=== PATIENT | female | born 1965 | race Caucasian/White ===

== ENCOUNTER 2020-04-03 14:07 | Outpatient (REF) | payer OTHER, SELFPAY | END 2020-04-03 14:08 | disposition home or self-care (01) | LOC: HO.MDS 14:07 | PROVIDERS: PCP Family Medicine; Visit Provider Internal Medicine Pulmonary Disease | DX: J45.50 Severe persistent asthma, uncomplicated (principal) | CPT/HCPCS: J2357 ==

== ENCOUNTER 2020-04-03 17:57 | Outpatient (REF) | payer OTHER, SELFPAY ==
--- NOTE | 2020-04-03 | MR_ITS ---
EXAMINATION: MR KNEE WITHOUT CONTRAST, LEFT CLINICAL INFORMATION: Primary osteoarthritis. Left knee swelling and pain. COMPARISON: Left knee radiograph dated 12/28/2019. TECHNIQUE: MRI of the knee without contrast was performed using routine sequences on a high-field scanner. FINDINGS: MENISCI: Medial Meniscus: A radial tear of the posterior horn occurs 1.4 cm from the footprint at the root insertion and extends through the full meniscal cross-section. The torn margins of the meniscus are frayed. Surrounding soft tissues are edematous. There is degenerative intrasubstance signal in the meniscal body. Lateral Meniscus: Intact. LIGAMENTS: Cruciate: Intact. Collateral: Edema signal around the MCL is likely reactive to the underlying meniscal abnormality. Collateral ligaments are intact. EXTENSOR MECHANISM: Intact. ARTICULAR CARTILAGE/BONE: Patellofemoral Compartment: There is vgqebztc-kq-dnrgme diffuse articular cartilage loss at the patella, most pronounced centrally at the median ridge with articular cortical irregularity and marginal osteophytes as well as mild subchondral edema. There is gzbn-dr-nxhkoycd articular cartilage loss in the trochlea, most pronounced at the central trochlear groove over an area measuring 1.2 x 1.0 cm. There is associated subcortical cystic change and cortical irregularity in this region. Medial Compartment: There is a subchondral insufficiency fracture at the medial femoral condyle weightbearing surface anteriorly measuring 1.1 x 0.7 cm in area, characterized by low-signal intensity in the subchondral bone with intense surrounding marrow edema. No cortical flattening or breaks. Intense reactive edema signal is also present at the medial tibial plateau with a smaller 4 x 5 mm subchondral insufficiency fracture line as seen on image 10/26 of series 5. There are tfgin-en-cdwzjoiq-sized marginal osteophytes. Mild generalized nonuniform chondral thinning in the medial compartment is most pronounced at the medial half of the medial tibial plateau. Lateral Compartment: Small marginal osteophytes. Articular cartilage appears relatively well preserved. JOINT FLUID AND BURSAE: Small joint effusion. No Telles's cyst. Edema signal is present in the prepatellar and superficial infrapatellar soft tissues. IMPRESSION: 1. Complete radial tear of the posterior horn of the medial meniscus. 2. Small subchondral insufficiency fractures at the medial femoral condyle and medial tibial plateau without cortical flattening, fragmentation, or depression. Mild medial compartment osteoarthritis. 3. 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 4. Small joint effusion.
== END 2020-04-03 17:58 | disposition home or self-care (01) ==
LOC: HO.MRI 17:57
PROVIDERS: Visit Provider Podiatrist
DX: M17.12 Unilateral primary osteoarthritis, left knee (principal); M25.462 Effusion, left knee
CPT/HCPCS: 73721

== ENCOUNTER 2020-04-17 10:15 | Outpatient (REF) | payer OTHER, SELFPAY | END 2020-04-17 10:16 | disposition home or self-care (01) | LOC: HO.MDS 10:15 | PROVIDERS: Visit Provider Internal Medicine Pulmonary Disease | DX: J45.50 Severe persistent asthma, uncomplicated (principal) | CPT/HCPCS: 96372 ==

== ENCOUNTER 2020-05-01 12:24 | Outpatient (REF) | payer OTHER, SELFPAY ==
--- NOTE | 2020-05-01 | MM_ITS ---
EXAMINATION: MM SCREENING DIGITAL BREAST TOMOSYNTHESIS, BILATERAL CLINICAL INFORMATION: Screening. Asymptomatic. Probable benign nodular asymmetry posterior outer left breast for follow-up. Family history breast cancer in mother. The lifetime risk of breast cancer based on the Tyrer-Cuzick Model is 19%. COMPARISON: Mammography: 04/05/2019, 10/14/2018, 04/08/2018, 04/01/2018, 02/05/2017, 08/28/2015 TECHNIQUE: Digital breast tomosynthesis is performed in both the craniocaudal and mediolateral oblique views along with computer-aided detection (CAD). Synthesized 2D images are generated from the tomosynthesis. FINDINGS: There are scattered areas of fibroglandular density (ACR BI-RADS breast composition Category b). There are no significant masses, abnormal calcifications, or other abnormalities. There is no developing density. Small smooth nodular asymmetry for follow-up posterior outer left breast on CC view may show fatty center suggesting intramammary node. This appears stable from prior exams. This is now considered benign. The axilla and skin contours are unremarkable. MM/MM tomosynthesis screening BI IMPRESSION: 1. Left: No significant changes from prior studies. Benign-appearing nodular asymmetry posterior outer quadrant, possibly intramammary node, stable. 2. Right: No mammographic evidence of malignancy. ASSESSMENT: BI-RADS 2: Benign RECOMMENDATION: Routine annual mammography screening. This patient's information was entered into a reminder system with a target due date for their next mammogram.
== END 2020-05-01 12:25 | disposition home or self-care (01) ==
LOC: HO.MAMMO 12:24
PROVIDERS: PCP Family Medicine; Visit Provider Family Medicine
DX: Z12.31 Encounter for screening mammogram for malignant neoplasm of breast (principal)
CPT/HCPCS: 77063; 77067

== ENCOUNTER 2020-05-03 | Outpatient (REF) | payer OTHER, SELFPAY | END 2020-05-03 00:01 | disposition home or self-care (01) | LOC: HO.MDS | PROVIDERS: Visit Provider Internal Medicine Pulmonary Disease | DX: J45.50 Severe persistent asthma, uncomplicated (principal) | CPT/HCPCS: 96372 ==

== ENCOUNTER → 2020-05-16 11:28 | Outpatient (BNVA) | payer OTHER, SELFPAY | PROVIDERS: PCP Family Medicine; Visit Provider Internal Medicine Pulmonary Disease | DX: Z76.89 Persons encountering health services in other specified circumstances (principal) ==

== ENCOUNTER 2020-05-17 09:13 | Outpatient (REF) | payer OTHER, SELFPAY | END 2020-05-17 09:14 | disposition home or self-care (01) | LOC: HO.MDS 09:13 | PROVIDERS: Visit Provider Internal Medicine Pulmonary Disease | DX: J45.50 Severe persistent asthma, uncomplicated (principal) | CPT/HCPCS: 96372; J2357 ==

== ENCOUNTER 2020-06-05 07:48 | Outpatient (REF) | payer OTHER, SELFPAY ==
[2020-06-05 08:11] LABS: COVID-19 Test Negative (Negative)
== END 2020-06-05 07:49 | disposition home or self-care (01) ==
LOC: HO.EMPCOV 07:48
PROVIDERS: Visit Provider Internal Medicine
DX: Z20.828 Contact with and (suspected) exposure to other viral communicable diseases (principal)
CPT/HCPCS: 87635; C9803

== ENCOUNTER 2020-06-06 10:41 | Outpatient (REF) | payer OTHER, SELFPAY | END 2020-06-06 10:42 | disposition home or self-care (01) | LOC: HO.MDS 10:41 | PROVIDERS: Visit Provider Internal Medicine Pulmonary Disease | DX: J45.909 Unspecified asthma, uncomplicated (principal) | CPT/HCPCS: 96372; J2357 ==

== ENCOUNTER → 2020-06-13 08:03 | Outpatient (REF) | payer OTHER, SELFPAY ==
--- NOTE | 2020-06-13 08:06 | CA_ITS ---
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 The visually estimated ejection fraction is between 60-65%. - No obvious valvular pathology seen on this study. - The pulmonary artery systolic pressure is normal. - There is no evidence of pericardial effusion. Findings Procedure Information Contrast agent, definity, is being given per protocol without apparent complications. Left Ventricle Normal left ventricular cavity size. There is normal left ventricular wall thickness. The left ventricular systolic function is normal. The visually estimated ejection fraction is between 60-65%. There is no evidence of regional wall motion abnormalities. E/E prime ratio is between 8 and 15 consistent with indeterminate filling pressures. Evidence suggests grade I (mild) diastolic dysfunction. Right Ventricle Normal right ventricular cavity size and systolic function. Atria The left atrium is normal in size. The right atrium is normal in size. Aortic Valve There is a normal trileaflet aortic valve. There is no aortic valve stenosis. There is no aortic valve regurgitation. Mitral Valve The mitral valve appears normal. There is no mitral valve regurgitation. There is no mitral valve stenosis. Pulmonic Valve The pulmonic valve was not well visualized. Tricuspid Valve The tricuspid valve was not well visualized. There is no tricuspid valve regurgitation. The pulmonary artery systolic pressure is normal. Great Vessels The aortic annulus, sinuses of valsalva, and asc aorta are normal in size. Venous The inferior vena cava is normal in size and collapses greater than 50% with inspiration. Pericardium/Pleural There is no evidence of pericardial effusion. Prior Study Comparison No significant change compared to prior study dated: 11/05/2007. Recommendations, Care & Conclusions No obvious valvular pathology seen on this study. Measurements 2D Linear Measurements RVIDd: 3.06 RVIDd Index: 1.49 IVSd: 0.90 0.6-0.9/0.6-1.0 cm LVIDd: 4.73 3.9-5.3/4.2-5.9 cm LVIDd Index: 2.30 2.4-3.2/2.2-3.1 cm/m2 LVIDs: 3.49 2.0-3.6 cm LVPWd: 1.06 0.7-1.1 cm LA Diam: 3.80 2.7-3.8/3.0-4.0 cm LAIDs Index: 1.84 1.5-2.3 cm/m2 LV Mass: 200.92 67-162/88-224 g LV Mass Index: 97.53 43-95/49-115 g/m2 LVOT Diam: 2.00 3.0+(-)1.3 cm 2D Systolic Function EF 4C: 64.80 >55% EF 2C: 71.80 >55% EF BiP: 69.00 >55% Mitral Valve MV Pk E: 0.69 MV PK A: 0.85 MV Decel Time: 260.00 E/A: 0.80 E'Lateral: 5.87 E'Medial: 7.51 E/E' Med: 9.10 E/E' Lat: 11.70 Aortic Valve AoV Pk Darryl: 1.48 AoV Mn Darryl: 1.03 AoV VTI: 0.30 AoV Pk Grad: 9.00 Aov Mn Grad: 5.00 YOSELIN Cont.VTI: 2.18 LVOT LVOT Pk Darryl: 0.99 LVOT Mn Darryl: 0.68 LVOT VTI: 0.21 LVOT Pk Grad: 4.00 LVOT Mn Grad: 2.00 LVOT Diam: 2.00 LVOT Area: 3.14 Diastolic Function MV Pk E: 0.69 MV Pk A: 0.85 E/A: 0.80 E'Medial: 7.51 E/E' Med: 9.10 E' Laterial: 5.87 E/E' Lat: 11.70 Tricuspid Valve TR Pk Darryl: 2.28 TR Pk Grad: 21.00 RA Press: 3.00 RVSP: 24.00 Great Vessels Aorta Ao Asc: 3.20 2.1-3.4 cm Ao Arch: 2.70 Updated in Other Vendor System with Status of Final Zackary Ruiz MD electronically signed on 06/13/2020 5:48:13 PM with status of Final
== END ==
LOC: HO.CARD 08:03
PROVIDERS: PCP Family Medicine; Visit Provider Internal Medicine Pulmonary Disease
DX: R06.02 Shortness of breath (principal)
CPT/HCPCS: 93306; Q9957

== ENCOUNTER → 2020-06-14 14:14 | Outpatient (BNVA) | payer OTHER, SELFPAY | PROVIDERS: Visit Provider Physician Assistant | DX: Z76.89 Persons encountering health services in other specified circumstances (principal) ==

== ENCOUNTER 2020-06-20 | Outpatient (REF) | payer OTHER, SELFPAY | END 2020-06-20 00:01 | disposition home or self-care (01) | LOC: HO.MDS | PROVIDERS: Visit Provider Internal Medicine Pulmonary Disease | DX: J45.50 Severe persistent asthma, uncomplicated (principal) | CPT/HCPCS: 96372 ==

== ENCOUNTER 2020-06-22 06:07 | Day surgery (SDC) | payer OTHER, SELFPAY ==
[2020-06-15 10:19] VITALS: BMI 36.8
--- NOTE | 2020-06-19 11:56 | HO.ANESPROP2 ---
Documented by User: Michelle Chengney 06/21/20 08:30 HPI - Anesthesia Eval Consult details Narrative: 55yo F for Knee Arthroscopy PONV PMFSH Past Medical History Medical History Asthma Elevated cholesterol GERD (gastroesophageal reflux disease) PONV (postoperative nausea and vomiting) Shortness of breath Thyroid disease Surgical History Surgical History H/O colonoscopy History of ankle surgery History of surgical removal of ganglion cyst Hx of total hip arthroplasty Social History Social History Alcohol intake: current Alcohol intake frequency: a few times a month Smoking Status: Never smoker Second Hand Smoke Exposure: No Use of substances other than those prescribed or required for medical reasons: No Advance Directives: No Advance Directives Information Provided: No Advance Directives on File: No Meds Allergies Allergy/AdvReac Type Severity Reaction Status Date / Time cephalexin [From KEFLEX] Allergy Intermediate RASH Verified 06/22/20 06:15 chlorhexidine [CHLORHEXIDINE] Allergy Intermediate ITCHY,RASH Verified 06/22/20 06:15 ibuprofen [IBUPROFEN] Allergy Intermediate RASH- PER Verified 06/22/20 06:15 H&P latex [LATEX] Allergy Intermediate RASH Verified 06/22/20 06:15 Home Medications Medication Instructions Recorded Confirmed Type atorvastatin 20 mg tablet 20 mg PO DAILY 05/04/20 06/15/20 History montelukast 10 mg tablet 10 mg PO DAILY 05/04/20 06/15/20 History omalizumab 150 mg subcutaneous 0 mg SUBCUT 05/04/20 History solution triamcinolone acetonide 0.1 % TOPICAL 05/04/20 History topical ointment omeprazole 20 mg capsule,delayed 20 mg PO DAILY 05/30/20 06/15/20 History release fluticasone propionate 50 1 spray INTRANASAL DAILY 06/14/20 06/15/20 History mcg/actuation nasal spray,suspension B.ani-L.aci-L.grady-L.plan-L.brijesh 1 cap PO DAILY 06/15/20 06/15/20 History albuterol sulfate 2 puff PO Q4H PRN 06/15/20 06/15/20 History apple cider vinegar 300 mg PO DAILY 06/15/20 06/15/20 History diphenhydramine HCl [Benadryl 12.5 mg PO BEDTIME 06/15/20 06/15/20 History Allergy] gabapentin 1 cap PO BEDTIME 06/15/20 06/15/20 History Exam Exam Date and Time: June 19, 2020 1156 Height,Weight and Vital Signs: Height 5 ft 5 in Weight 100.244 kg Pertinent Lab Results Pertinent Lab Results: Laboratory Tests 01/19/20 02/21/20 08:57 08:40 WBC 6.2 Hgb 12.3 Hct 37.9 Plt Count 258 Sodium 141 Potassium 4.2 Chloride 105 BUN 11 Creatinine 0.71 Assessment and Plan Assessment Anesthesia Assessment: Chart Reviewed Documented by User: Travis Glover MD 06/22/20 08:27 PMFSH Past Medical History Medical History Asthma Elevated cholesterol GERD (gastroesophageal reflux disease) PONV (postoperative nausea and vomiting) Shortness of breath Thyroid disease Surgical History Surgical History H/O colonoscopy History of ankle surgery History of surgical removal of ganglion cyst Hx of total hip arthroplasty Social History Social History Alcohol intake: current Alcohol intake frequency: a few times a month Smoking Status: Never smoker Second Hand Smoke Exposure: No Use of substances other than those prescribed or required for medical reasons: No Advance Directives: No Advance Directives Information Provided: No Advance Directives on File: No Meds Allergies Allergy/AdvReac Type Severity Reaction Status Date / Time cephalexin [From KEFLEX] Allergy Intermediate RASH Verified 06/22/20 06:15 chlorhexidine [CHLORHEXIDINE] Allergy Intermediate ITCHY,RASH Verified 06/22/20 06:15 ibuprofen [IBUPROFEN] Allergy Intermediate RASH- PER Verified 06/22/20 06:15 H&P latex [LATEX] Allergy Intermediate RASH Verified 06/22/20 06:15 Home Medications Medication Instructions Recorded Confirmed Type atorvastatin 20 mg tablet 20 mg PO DAILY 05/04/20 06/15/20 History montelukast 10 mg tablet 10 mg PO DAILY 05/04/20 06/15/20 History omalizumab 150 mg subcutaneous 0 mg SUBCUT 05/04/20 History solution triamcinolone acetonide 0.1 % TOPICAL 05/04/20 History topical ointment omeprazole 20 mg capsule,delayed 20 mg PO DAILY 05/30/20 06/15/20 History release fluticasone propionate 50 1 spray INTRANASAL DAILY 06/14/20 06/15/20 History mcg/actuation nasal spray,suspension B.ani-L.aci-L.grady-L.plan-L.brijesh 1 cap PO DAILY 06/15/20 06/15/20 History albuterol sulfate 2 puff PO Q4H PRN 06/15/20 06/15/20 History apple cider vinegar 300 mg PO DAILY 06/15/20 06/15/20 History diphenhydramine HCl [Benadryl 12.5 mg PO BEDTIME 06/15/20 06/15/20 History Allergy] gabapentin 1 cap PO BEDTIME 06/15/20 06/15/20 History Exam Airway Mallampati Class: I TM Dist: >3cm Neck ROM: Full Loose/Missing/Broken Teeth: No Heart: rrr Lungs: nl Other: ao Assessment and Plan Assessment Anesthesia Assessment: Anesthesia Plan Discussed and Chart Reviewed Final Anesthetic Review NPO: Yes ASA Class: III Final Preanesthetic Review: No Changes in Pt Med Stat, Consent Obtained/Reviewed and Anes Risks/Benef Reviewed Patient Risk: Intermediate Procedure Risk: Low Anesthetic Plan Anesthetic Plan: GA Disposition: Standard PACU
[2020-06-21 07:45] VITALS: BMI 36.8
[2020-06-22 06:17] VITALS: BP 158/92; PULSE 89; RESP 18; TEMP 36.3; O2SAT 98
[2020-06-22] MEDS: Scopolamine 1.5 MG PATCH.TD.3 TRANSDERMA (06:40)
[2020-06-22] MEDS: Lactated Ringers 1,000 ML 100 ML IVCONT (06:40)
--- NOTE | 2020-06-22 07:45 | MHC.SHP ---
Pre-Procedural Eval Section A The patient is an INPATIENT: No Changes since office visit: No Cold of Flu in the past 2 weeks, No New Medical Problems, No Changes in Medication and No Patient answered all questions The History & Physical has been completed within 30 days and I have reviewed it.: Yes Section B Chief Complaint: Medial Meniscus Tear, Left Knee Osteoarthritis Allergies: Allergies Allergy/AdvReac Type Severity Reaction Status Date / Time cephalexin [From KEFLEX] Allergy Intermediate RASH Verified 06/22/20 06:15 chlorhexidine [CHLORHEXIDINE] Allergy Intermediate ITCHY,RASH Verified 06/22/20 06:15 ibuprofen [IBUPROFEN] Allergy Intermediate RASH- PER Verified 06/22/20 06:15 H&P latex [LATEX] Allergy Intermediate RASH Verified 06/22/20 06:15 Plan I have reviewed the history and physical and performed a pertinent physical examination on my patient. No changes have occurred unless specified.
[2020-06-22 08:20] VITALS: BP 109/65; PULSE 87; RESP 18; TEMP 36.6; O2SAT 100
[2020-06-22 08:25] VITALS: BP 110/69; PULSE 81; RESP 16; O2SAT 91
[2020-06-22 08:30] VITALS: BP 116/72; PULSE 73; RESP 15; O2SAT 95
[2020-06-22 08:35] VITALS: BP 131/68; PULSE 70; RESP 16; O2SAT 95
[2020-06-22 08:50] VITALS: BP 139/70; PULSE 69; RESP 18; O2SAT 95
--- NOTE | 2020-06-22 09:25 | PM.PRCOR ---
Brief Operative Note Date of procedure: 06/22/20 Pre-op diagnosis: mmt left knee Post-op diagnosis: same (with lateral meniscal tear and anterior compartment oa) Procedure: Arthroscopic sugery left knee Anesthesia: GLMA Surgeon: Aly Slaughter Estimated blood loss (mL): 0 Condition: stable Disposition: PACU
--- NOTE | 2020-06-22 09:55 | HO.POSTANES ---
Post Anesthesia Evaluation Post Anesthesia Evaluation Vital Signs: Vital Signs Temp Pulse Resp BP Pulse Ox 06/22/20 08:50 69 18 139/70 95 06/22/20 08:35 70 16 131/68 95 06/22/20 08:30 73 15 116/72 95 06/22/20 08:25 81 16 110/69 91 L 06/22/20 08:20 97.9 F 87 18 109/65 100 06/22/20 06:17 97.4 F 89 18 158/92 H 98 Anesthesia: General Mental Status: Awake Pain Control: Satisfactory Nausea/Vomiting: None Hydration: Adequate Anesthesia-Related Issues: No Anes. Related Issues
--- NOTE | 2020-07-20 12:04 | OP_ITS ---
SURGEON: Aly Slaughter MD PREOPERATIVE DIAGNOSIS: Medial meniscal tear, left knee. POSTOPERATIVE DIAGNOSIS: PROCEDURE PERFORMED: ESTIMATED BLOOD LOSS: COMPLICATIONS: ANESTHESIA: ASSISTANTS: SPECIMENS: POSTOPERATIVE DIAGNOSES: 1. Medial meniscal tear, left knee. 2. Lateral meniscal tear, left knee. 3. Anterior compartment osteoarthritis, left knee. CLINICAL NOTE: This lady has ongoing problem with pain and discomfort involving her knee. Therefore, after explaining the risks, benefits, and alternatives and answering all the questions, it was mutually agreed upon to carry out the following procedure. MOTION: Full range of motion. STABILITY: Cruciate and collateral ligaments intact. DESCRIPTION OF PROCEDURE: PREPARATION: GA, standard technique, tourniquet to 300 mmHg for 15 minutes. SURGICAL TIME-OUT: The patient was identified, procedure confirmed, site confirmed. Medical analogy and history reviewed. Preoperative antibiotics given. Standard DVT prophylaxis in place. All other items were discussed and agreed upon. INCISION: Superolateral, inferolateral, and inferomedial stab incisions. SYNOVIUM: Normal. SYNOVIAL FLUID: Clear. MEDIAL COMPARTMENT: There was complex tearing of posterior horn of the medial meniscus. This was resected using a combination of handheld cutters and power shaver to stable meniscus. There was some grade 2 fraying of the medial femoral condyle and grade 2 softening of the tibial articular surface. INTERCONDYLAR NOTCH: ACL visualized, palpated intact. PCL palpated intact. LATERAL COMPARTMENT: There was inner edge complex tearing at the junction of the middle and posterior horns of the lateral meniscus. This was resected using a combination of handheld cutters and power shaver to stable meniscus. The tibial and femoral articular surfaces were intact. Popliteus tendon was intact. ANTERIOR COMPARTMENT: Medial and lateral gutters were clear. Suprapatellar pouch was clear. Patella demonstrated some grade 4 injury of the lateral facet. There was also grade 4 injury in the femoral sulcus. This was debrided of loose articular cartilage. CLOSURE: 30 mL of half and half of 0.75% Marcaine with epinephrine and normal saline was injected into the knee. Steri-Strips and sterile dressing were then applied. RECOMMENDATIONS: 1. Restore motion and strength. 2. Resume activity as tolerated. 3. Discharge today with prescription for analgesics. 4. Follow up in the office in 10 days' time. Aly Slaughter MD KKI/SYDNEE / [phone]
== END 2020-06-22 09:25 | disposition home or self-care (01) ==
PROVIDERS: PCP Family Medicine; Visit Provider Orthopaedic Surgery
PROC: (CPT 29870; principal; 2020-06-22 07:30)
DX: S83.232A Complex tear of medial meniscus, current injury, left knee, initial encounter (principal); S83.272A Complex tear of lateral meniscus, current injury, left knee, initial encounter; M17.12 Unilateral primary osteoarthritis, left knee; J45.909 Unspecified asthma, uncomplicated; E78.5 Hyperlipidemia, unspecified; K21.9 Gastro-esophageal reflux disease without esophagitis; Z96.641 Presence of right artificial hip joint; Z79.51 Long term (current) use of inhaled steroids; Z79.899 Other long term (current) drug therapy; Z91.040 Latex allergy status; Z91.09 Other allergy status, other than to drugs and biological substances; Z88.1 Allergy status to other antibiotic agents
CPT/HCPCS: 29880; J0171; J1100; J1885; J2250; J2405; J3010

== ENCOUNTER 2020-07-04 10:02 | Outpatient (REF) | payer BC, SELFPAY | END 2020-07-04 10:03 | disposition home or self-care (01) | LOC: HO.MDS 10:02 | PROVIDERS: PCP Family Medicine; Visit Provider Internal Medicine Pulmonary Disease | DX: J45.50 Severe persistent asthma, uncomplicated (principal); S83.242A Other tear of medial meniscus, current injury, left knee, initial encounter; X58.XXXA Exposure to other specified factors, initial encounter; Y93.9 Activity, unspecified; Y92.9 Unspecified place or not applicable; Y99.8 Other external cause status; M17.12 Unilateral primary osteoarthritis, left knee | CPT/HCPCS: 96372; J2357 ==

== ENCOUNTER 2020-07-18 09:34 | Outpatient (REF) | payer BC, SELFPAY | END 2020-07-18 09:35 | disposition home or self-care (01) | LOC: HO.MDS 09:34 | PROVIDERS: PCP Family Medicine; Visit Provider Internal Medicine Pulmonary Disease | DX: J45.50 Severe persistent asthma, uncomplicated (principal) | CPT/HCPCS: 96372; J2357 ==

== ENCOUNTER 2020-08-01 10:59 | Outpatient (REF) | payer BC, SELFPAY | END 2020-08-01 11:00 | disposition home or self-care (01) | LOC: HO.MDS 10:59 | PROVIDERS: PCP Family Medicine; Visit Provider Internal Medicine Pulmonary Disease | DX: J45.50 Severe persistent asthma, uncomplicated (principal) | CPT/HCPCS: 96372; J2357 ==

== ENCOUNTER 2020-08-24 08:03 | Outpatient (REF) | payer BC, SELFPAY ==
[2020-08-24 09:21] LABS: Alanine Aminotransferase 41 U/L (0-31); Albumin Level 4.3 g/dL (3.5-5.0); Alkaline Phosphatase 74 U/L (39-117); Anion Gap 14 (12-20); Aspartate Amino Transferase 24 U/L (5-31); Bilirubin Total 0.5 mg/dL (0.0-1.0); Blood Urea Nitrogen 13 mg/dL (9-16); Calcium 9.3 mg/dL (8.4-10.2); Carbon Dioxide 26 mmol/L (22-29); Chloride 105 mmol/L (96-108); Cholesterol 178 mg/dL; Estimated Glomerular Filt Rate > 60; Glucose Fasting 103 mg/dL (60-99); HDL Cholesterol 59 mg/dL; LDL Cholesterol Calculated 93 mg/dl; Sodium 141 mmol/L (135-145); Triglycerides 130 mg/dL
[2020-08-24 09:34] LABS: TSH reflex Free T4 3.23 uIU/mL (0.32-4.0)
== END 2020-08-24 08:04 | disposition home or self-care (01) ==
LOC: HO.LAB 08:03
PROVIDERS: PCP Family Medicine; Visit Provider Family Medicine
DX: Z00.00 Encounter for general adult medical examination without abnormal findings (principal); I10 Essential (primary) hypertension
CPT/HCPCS: 36415; 80053; 80061; 84443

== ENCOUNTER 2020-09-28 08:01 | Outpatient (REF) | payer OTHER, SELFPAY ==
[2020-09-28 08:42] LABS: COVID-19 Test Negative (Negative); IDNOW Serial# 55D5AD1C
== END 2020-09-28 08:02 | disposition home or self-care (01) ==
LOC: HO.EMPCOV 08:01
PROVIDERS: Visit Provider Internal Medicine
DX: Z20.822 Contact with and (suspected) exposure to COVID-19 (principal)
CPT/HCPCS: 36415; 87635; C9803

== ENCOUNTER 2020-11-16 10:41 | Outpatient (REF) | payer BC, SELFPAY ==
--- NOTE | ~2020-11-16 | XR_ITS ---
EXAMINATION: XR CHEST CLINICAL INFORMATION: Shortness of breath COMPARISON: None TECHNIQUE: 2 views of the chest were obtained. FINDINGS: No significant abnormality is noted involving the heart, lungs, mediastinum, bony thorax or soft tissues. XR/XR chest 2V IMPRESSION: Unremarkable chest examination.
== END 2020-11-16 10:42 | disposition home or self-care (01) ==
LOC: HO.XRAY 10:41
PROVIDERS: PCP Family Medicine; Visit Provider Family Medicine
DX: R06.02 Shortness of breath (principal)
CPT/HCPCS: 71046

== ENCOUNTER 2020-11-16 15:11 | Emergency (ER) | payer BC, SELFPAY ==
--- NOTE | 2020-11-16 | ECG_ITS ---
Test Reason : CHEST PAIN Blood Pressure : / mmHG Vent. Rate : 092 BPM Atrial Rate : 092 BPM P-R Int : 130 ms QRS Dur : 076 ms QT Int : 368 ms P-R-T Axes : 027 -09 024 degrees QTc Int : 455 ms Normal sinus rhythm Minimal voltage criteria for LVH, may be normal variant Nonspecific ST abnormality Abnormal ECG When compared with ECG of 28-APR-2017 10:53, No significant change was found Referred By: Vargas Miller Electronically Signed By:GUILLERMO BARAKAT MD
[2020-11-16 15:15] VITALS: BP 186/114; PULSE 97; RESP 21; TEMP 37; O2SAT 100; BMI 36.9
[2020-11-16 15:51] LABS: MANUAL DIFF FLAG NO
[2020-11-16] MEDS: Ketorolac Tromethamine 30 MG/ML VIAL IVPUSH (15:51)
[2020-11-16 15:58] LABS: Basophils Percent Auto 0.4 % (0-2); Eosinophils Absolute Auto 0.1 X10*3/uL (0.0-0.4); Eosinophils Percent Auto 0.7 % (0-4); Hematocrit 37.5 % (37-47); Hemoglobin 12.3 g/dl (12.0-16.0); Imm Gran Abs Auto 0.03 X10*3/uL (0.00-0.03); Imm Gran Pct Auto 0.4 % (0.0-0.4); Lymphocytes Absolute Auto 2.5 X10*3/uL (1.2-4.9); Lymphocytes Percent Auto 30.1 % (20-40); Mean Corpuscular HGB Conc 32.8 g/dl (31.0-35.0); Mean Corpuscular Hemoglobin 29.4 pg (27.0-33.0); Mean Corpuscular Volume 89.7 fL (80-98); Mean Platelet Volume 9.3 fL (9.4-12.3); Monocytes Absolute Auto 0.8 X10*3/uL (0.1-1.2); Monocytes Percent Auto 9.2 % (2-11); Neutrophils Absolute Auto 4.9 X10*3/uL (2.0-8.3); Neutrophils Percent Auto 59.2 % (45-73); Platelet Count 272 X10*3/uL (160-400); Red Blood Count 4.18 X10*6/uL (4.20-5.50); Red Cell Distribution Width 14.9 % (11.0-16.0); White Blood Count 8.3 X10*3/uL (4.8-10.8)
[2020-11-16 15:59] LABS: INTERNATIONAL NORM RATIO 0.9 (0.9-1.1); Prothrombin Time 10.5 SEC (10.8-13.0)
[2020-11-16 16:00] VITALS: BP 150/90; PULSE 98; RESP 18; O2SAT 98
[2020-11-16 16:02] LABS: D Dimer < 200 NG/ML; Partial Thromboplastin Time 31.3 SEC (24.1-38.0)
[2020-11-16 16:18] LABS: Alanine Aminotransferase 45 U/L (0-31); Albumin Level 4.4 g/dL (3.5-5.0); Alkaline Phosphatase 76 U/L (39-117); Anion Gap 13 (12-20); Aspartate Amino Transferase 25 U/L (5-31); Bilirubin Total 0.6 mg/dL (0.0-1.0); Blood Urea Nitrogen 16 mg/dL (9-16); Calcium 9.7 mg/dL (8.4-10.2); Carbon Dioxide 27 mmol/L (22-29); Chloride 102 mmol/L (96-108); Creatinine Clr Calc Pharmacy 98.6; Estimated Glomerular Filt Rate > 60; Glucose Random 103 mg/dL (60-115); Potassium 3.9 mmol/L (3.3-5.1); Sodium 138 mmol/L (135-145); Total Protein 7.1 g/dL (6.5-8.0)
[2020-11-16 16:25] LABS: Troponin-I High Sensitivity < 3.5 ng/L (<3.5-17.0)
[2020-11-16 16:26] VITALS: PULSE 98
--- NOTE | 2020-11-16 17:11 | ED.CHESTPAIN ---
HPI - Chest Pain General Chief Complaint: Chest Pain Stated Complaint: chest pain Time Seen by Provider: 11/16/20 15:21 Source: patient Mode of arrival: ambulatory Limitations: no limitations History of Present Illness HPI narrative: 55-year-old female who presents emergency department for evaluation chest pain. 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 She states that she was getting ready to leave when she had a sudden onset of chest pain. She describes the pain as a heaviness located along the lower margins of her chest bilaterally. The pain was initially anterior Mitten lasting minutes and then coming back. The pain then became constant. She states she had associated nausea and lightheadedness. She denied any pain in her neck, jaw or arms. The pain was 9/10 at its worse 5/10 at the time of evaluation. The patient states that she has been having difficulty breathing for approximately 3 weeks. She saw her hr manager and was started on a prednisone taper approximately 1 week prior she states that she has 2 pills left. She states that her rescue inhaler and her preventative inhalers seem to be working last. The patient states that she did have a COVID-19 infection September 28, 2019 and states that she is not fully covered and still feels short of breath since the infection. Patient was on vacation recently in [facility] and came back on Friday (3 days prior). This was a 2-1/2 [address] ride. She denied fever, chills, cough. Related Data Home Medications Medication Instructions Recorded Confirmed triamcinolone acetonide 0.1 % TOPICAL 05/04/20 topical ointment B.breni-L.aci-L.grady-L.plan-L.brijesh 1 cap PO DAILY 06/15/20 06/15/20 apple cider vinegar 300 mg PO DAILY 06/15/20 06/15/20 diphenhydramine HCl [Benadryl 12.5 mg PO BEDTIME 06/15/20 06/15/20 Allergy] melatonin 2.5 mg chewable tablet 2.5 mg PO BEDTIME PRN 08/25/20 Previous Rx's Medication Instructions Recorded Symbicort 160 mcg-4.5 2 puff PO BID 90 Days #10.2 g NS 07/27/20 mcg/actuation HFA aerosol inhaler albuterol sulfate 90 mcg/actuation 2 puff PO Q4H PRN 90 Days #3 ea 07/27/20 aerosol inhaler levothyroxine 75 mcg tablet 75 mcg PO QAM 90 Days #90 tab 07/27/20 omeprazole 20 mg capsule,delayed 20 mg PO DAILY 90 Days #90 cap 07/27/20 release atorvastatin 20 mg tablet 20 mg PO DAILY 90 Days #90 tab 08/20/20 fluticasone propionate 50 1 spray INTRANASAL DAILY #16 cap 09/22/20 mcg/actuation nasal spray,suspension montelukast 10 mg tablet 10 mg PO DAILY 30 Days #30 tab 09/22/20 prednisone 10 mg tablet See Rx Instructions PO DAILY 14 11/02/20 Days #32 tab prednisone 10 mg PO DAILY #20 tab 11/16/20 prednisone 60 mg PO DAILY 5 Days #15 tab 11/16/20 Allergies Allergy/AdvReac Type Severity Reaction Status Date / Time cephalexin [From KEFLEX] Allergy Intermediate RASH Verified 11/02/20 16:31 chlorhexidine [CHLORHEXIDINE] Allergy Intermediate ITCHY,RASH Verified 11/02/20 16:31 ibuprofen [IBUPROFEN] Allergy Intermediate RASH- PER Verified 11/02/20 16:31 H&P latex [LATEX] Allergy Intermediate RASH Verified 11/02/20 16:31 Review of Systems Review of Systems: Yes all other systems are reviewed and are negative FOR[facility]LY [facility], [facility] Past Medical History FOR[facility]LY [facility], [facility] Narrative: The patient denies tobacco use. She states that she drinks 1 glass of wine per day. She denies drug use. 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 Medical History Asthma Elevated cholesterol GERD (gastroesophageal reflux disease) PONV (postoperative nausea and vomiting) Shortness of breath Thyroid disease Surgical History H/O colonoscopy History of ankle surgery History of surgical removal of ganglion cyst Hx of total hip arthroplasty Family History Family History Father CVD (cardiovascular disease) Asthma Mother Breast cancer History of corneal transplant HTN (hypertension) Hypercholesterolemia Brother No problems noted. Brother No problems noted. Brother No problems noted. Sister No problems noted. Sister No problems noted. Sister No problems noted. Son No problems noted. Son No problems noted. Son No problems noted. Daughter No problems noted. Social History Social History Alcohol intake: current Alcohol intake frequency: a few times a month Smoking Status: Never smoker Second Hand Smoke Exposure: No Advance Directives: No Advance Directives Information Provided: No Patient : No Physical Exam Vital Signs: Vital Signs: Last Vital Signs Temp 98.6 F 11/16/20 15:15 Pulse 98 11/16/20 16:00 Resp 18 11/16/20 16:00 BP 150/90 H 11/16/20 16:00 Pulse Ox 98 11/16/20 16:00 Oxygen Flow Rate 2 11/16/20 15:15 Body Mass Index 36.9 Const: General: cooperative, in distress (Secondary to pain) mild and anxious Orientation/consciousness: oriented to person and oriented to place Limitations: no limitations HENMT: Head: Yes normal to inspection, Yes normocephalic and Yes atraumatic Ears: external ears normal General nose exam: Normal external nose present Face and sinus: Yes normal facial exam Mouth: Normal oral and palatal mucosa present Throat: Yes posterior oropharynx normal Eyes: Periorbital: periorbital findings normal Eyelids: Yes eyelids normal Conjunctivae: conjunctivae normal Sclerae: sclerae normal Corneas: corneas normal Pupils: Equal, round and reactive pupils present Direct Ophthalmoscopy: normal light reflex Neck: Neck: Yes full ROM, Yes no lymphadenopathy, Yes no meningeal signs, Yes trachea midline and Yes supple Chest: Chest palpation & inspection: normal inspection of the chest and normal palpation of entire chest wall Resp: Effort & Inspection: normal respiratory effort and able to speak in complete sentences Auscultation: clear to auscultation bilaterally Cardio: Rate: regular rate Rhythm: regular rhythm Heart sounds: S1 normal heart sound present, S2 normal heart sound present and no murmurs GI: Inspection: Yes normal to inspection Palpation (GI): Soft to palpation, nontender, no guarding, not rigid and No hepatosplenomegaly present : General: Yes no CVA tenderness Back/Spine/Pelvis: Back: no CVA tenderness Cervical Spine: normal cervical lordosis Thoracic/Lumbar Spine: thoracic and lumbar spine normal to inspection Skin: Lesions: no lesions Rashes: no rashes Wounds: no wounds Neuro: General: oriented to person, oriented to place and no meningeal signs Cranial nerves: Yes Equal, round and reactive pupils present Cognition (Neuro): normal cognition Motor exam (neuro): 5/5 motor strength present throughout Extrem: General: Yes normal to inspection and Yes full ROM Psych: Appearance: well kempt Mental Status: mental status grossly normal Speech and movement: Normal speech and movement present Affect: normal affect Attitude: cooperative Thought process: Normal thought process present Thought content: Normal thought content present Course Course Course Narrative: 55-year-old female with a history of asthma who presents emergency department for evaluation of 3 weeks of shortness of breath and sudden onset of lower chest pain. The patient has been on a tapering course prednisone and has 2 days left. The patient recently traveled back from her floor the vacation 3 days prior. Vital signs revealed an elevated respiratory rate of 21, hypertension 186/144 and normal O2 saturation of 98 % on room air. Physical examination revealed a normal lung exam and no chest wall tenderness. I ordered a laboratory evaluation and EKG. Patient's pain was treated with Toradol 30 mg IV. 1720: He patient's laboratory evaluation revealed a normal CBC, normal comprehensive metabolic panel. Patient's high sensitivity troponin was not elevated. Patient's coags were normal. D-dimer was not elevated. Twelve EKG was unremarkable. My impression is that the patient was chest pain is secondary to pleurisy most likely related to an asthma exacerbation. She was ordered to get Solu-Medrol 125 mg IV. Patient will be started on a pulse dose of prednisone 60 mg once a day for 5 days and then tapered off by 10 mg per day. The patient was given printed and verbal instructions. She was advised follow-up with her PCP and return to emergency department if her symptoms get worse or she develops any symptoms that are concerning to her. MDM - Chest Pain Lab Data Result diagrams: 11/16/20 15:47 11/16/20 15:47 Labs: Lab Results 11/16/20 11/16/20 11/16/20 Range/Units 15:47 15:47 15:47 WBC 8.3 (4.8-10.8) X10*3/uL RBC 4.18 L (4.20-5.50) X10*6/uL Hgb 12.3 (12.0-16.0) g/dl Hct 37.5 (37-47) % MCV 89.7 (80-98) fL MCH 29.4 (27.0-33.0) pg MCHC 32.8 (31.0-35.0) g/dl RDW 14.9 (11.0-16.0) % Plt Count 272 (160-400) X10*3/uL MPV 9.3 L (9.4-12.3) fL Immature Gran % (Auto) 0.4 (0.0-0.4) % Neut % (Auto) 59.2 (45-73) % Lymph % (Auto) 30.1 (20-40) % Petroleum % (Auto) 9.2 (2-11) % Eos % (Auto) 0.7 (0-4) % Baso % (Auto) 0.4 (0-2) % Lymph # (Auto) 2.5 (1.2-4.9) X10*3/uL Petroleum # (Auto) 0.8 (0.1-1.2) X10*3/uL Eos # (Auto) 0.1 (0.0-0.4) X10*3/uL Baso # (Auto) 0.0 (0.0-0.2) X10*3/uL Abs Immat Gran (auto) 0.03 (0.00-0.03) X10*3/uL Absolute Neuts (auto) 4.9 (2.0-8.3) X10*3/uL Absolute Nucleated RBC 0.000 (0.0-0.012) X10*3/uL Nucleated RBC % (auto) 0.0 (0.0-0.2) /100WBC PT 10.5 L (10.8-13.0) SEC INR 0.9 (0.9-1.1) APTT 31.3 (24.1-38.0) SEC D-Dimer < 200 NG/ML Sodium 138 (135-145) mmol/L Potassium 3.9 (3.3-5.1) mmol/L Chloride 102 (96-108) mmol/L Carbon Dioxide 27 (22-29) mmol/L Anion Gap 13 (12-20) BUN 16 (9-16) mg/dL Creatinine 0.74 (0.5-1.4) mg/dL Estim Creat Clear Calc 98.6 Estimated GFR > 60 Random Glucose 103 (60-115) mg/dL Calcium 9.7 (8.4-10.2) mg/dL Total Bilirubin 0.6 (0.0-1.0) mg/dL AST 25 (5-31) U/L ALT 45 H (0-31) U/L Alkaline Phosphatase 76 (39-117) U/L Troponin I High Sens (<3.5-17.0) ng/L Total Protein 7.1 (6.5-8.0) g/dL Albumin 4.4 (3.5-5.0) g/dL 11/16/20 Range/Units 15:47 WBC (4.8-10.8) X10*3/uL RBC (4.20-5.50) X10*6/uL Hgb (12.0-16.0) g/dl Hct (37-47) % MCV (80-98) fL MCH (27.0-33.0) pg MCHC (31.0-35.0) g/dl RDW (11.0-16.0) % Plt Count (160-400) X10*3/uL MPV (9.4-12.3) fL Immature Gran % (Auto) (0.0-0.4) % Neut % (Auto) (45-73) % Lymph % (Auto) (20-40) % Petroleum % (Auto) (2-11) % Eos % (Auto) (0-4) % Baso % (Auto) (0-2) % Lymph # (Auto) (1.2-4.9) X10*3/uL Petroleum # (Auto) (0.1-1.2) X10*3/uL Eos # (Auto) (0.0-0.4) X10*3/uL Baso # (Auto) (0.0-0.2) X10*3/uL Abs Immat Gran (auto) (0.00-0.03) X10*3/uL Absolute Neuts (auto) (2.0-8.3) X10*3/uL Absolute Nucleated RBC (0.0-0.012) X10*3/uL Nucleated RBC % (auto) (0.0-0.2) /100WBC PT (10.8-13.0) SEC INR (0.9-1.1) APTT (24.1-38.0) SEC D-Dimer NG/ML Sodium (135-145) mmol/L Potassium (3.3-5.1) mmol/L Chloride (96-108) mmol/L Carbon Dioxide (22-29) mmol/L Anion Gap (12-20) BUN (9-16) mg/dL Creatinine (0.5-1.4) mg/dL Estim Creat Clear Calc Estimated GFR Random Glucose (60-115) mg/dL Calcium (8.4-10.2) mg/dL Total Bilirubin (0.0-1.0) mg/dL AST (5-31) U/L ALT (0-31) U/L Alkaline Phosphatase (39-117) U/L Troponin I High Sens < 3.5 (<3.5-17.0) ng/L Total Protein (6.5-8.0) g/dL Albumin (3.5-5.0) g/dL ECG Data ECG #1: Attestation: I personally reviewed and interpreted this ECG as follows: Interpretation: 15 18: Normal sinus rhythm with a rate of 92, normal MT interval, QRS and QTC intervals, no ST segment elevation or ST segment depression. No PACs or PVCs. Inverted T-wave in V1. No old EKG for comparison. Discharge Plan Discharge Clinical Impression: Pleurisy Asthma exacerbation Qualifiers: Asthma severity: moderate Asthma persistence: unspecified Qualified Code(s): J45.901 - Unspecified asthma with (acute) exacerbation Patient Disposition: Home, Self-Care Prescriptions: New prednisone 20 mg tablet 60 mg PO DAILY 5 Days Qty: 15 RF: 0 prednisone 10 mg tablet 10 mg PO DAILY Qty: 20 RF: 0 No Action levothyroxine 75 mcg tablet 75 mcg PO QAM 90 Days Qty: 90 RF: 1 omeprazole 20 mg capsule,delayed release(DR/EC) 20 mg PO DAILY 90 Days Qty: 90 RF: 1 budesonide-formoterol [Symbicort] 160-4.5 mcg/actuation HFA aerosol inhaler 2 puff PO BID 90 Days Qty: 10.2 RF: 1 albuterol sulfate 90 mcg/actuation HFA aerosol inhaler 2 puff PO Q4H PRN (Reason: Shortness Of Breath) 90 Days Qty: 3 RF: 1 atorvastatin 20 mg tablet 20 mg PO DAILY 90 Days Qty: 90 RF: 3 fluticasone propionate 50 mcg/actuation spray,suspension 1 spray intranasal DAILY Qty: 16 RF: 3 montelukast 10 mg tablet 10 mg PO DAILY 30 Days Qty: 30 RF: 3 diphenhydramine HCl [Benadryl Allergy] 25 mg Tablet 12.5 mg PO BEDTIME RF: 0 apple cider vinegar 300 mg Tablet 300 mg PO DAILY RF: 0 B.ani-L.aci-L.grady-L.plan-L.brijesh 10 billion cell (2 billion ea) Capsule 1 cap PO DAILY RF: 0 triamcinolone acetonide 0.1 % ointment topical RF: 0 melatonin 2.5 mg tablet,chewable 2.5 mg PO BEDTIME PRNRF: 0 prednisone 10 mg tablet See Rx Instructions PO DAILY 14 Days Qty: 32 RF: 0
[2020-11-16] MEDS: methylPREDNISolone Sod Succ 125 MG/2 ML VIAL IVPUSH (17:27)
== END 2020-11-16 17:58 | disposition home or self-care (01) ==
PROVIDERS: Emergency Provider Emergency Medicine Emergency Medical Services; PCP Family Medicine
DX: R09.1 Pleurisy (principal); J45.901 Unspecified asthma with (acute) exacerbation; E78.5 Hyperlipidemia, unspecified; Z86.16 Personal history of COVID-19; Z79.02 Long term (current) use of antithrombotics/antiplatelets; Z79.899 Other long term (current) drug therapy
CPT/HCPCS: 36415; 80053; 84484; 85025; 85379; 85610; 85730; 93005; 96374; 96375; 99284; J1885; J2930

== ENCOUNTER → 2020-11-28 14:59 | Outpatient (BNVA) | payer BC, SELFPAY | PROVIDERS: PCP Family Medicine; Visit Provider Hospitalist ==

== ENCOUNTER → 2020-12-19 15:03 | Outpatient (BNVA) | payer BC, SELFPAY | PROVIDERS: PCP Family Medicine; Visit Provider Hospitalist ==

== ENCOUNTER → 2021-02-02 10:00 | Outpatient (BNVA) | payer BC, SELFPAY | PROVIDERS: PCP Family Medicine; Visit Provider Hospitalist ==

== ENCOUNTER → 2021-03-22 15:01 | Outpatient (BNVA) | payer BC, SELFPAY | PROVIDERS: PCP Family Medicine; Visit Provider Hospitalist ==

== ENCOUNTER → 2021-04-26 14:33 | Outpatient (BNVA) | payer BC, SELFPAY | PROVIDERS: PCP Family Medicine; Visit Provider Hospitalist ==

== ENCOUNTER 2021-06-08 07:30 | Outpatient (REF) | payer BC, SELFPAY ==
[2021-06-08 09:03] LABS: Anion Gap 14 (12-20); Blood Urea Nitrogen 15 mg/dL (9-16); Calcium 10.1 mg/dL (8.4-10.2); Carbon Dioxide 27 mmol/L (22-29); Chloride 104 mmol/L (96-108); Estimated Glomerular Filt Rate > 60; Glucose Fasting 99 mg/dL (60-99); Potassium 4.1 mmol/L (3.3-5.1); Sodium 141 mmol/L (135-145)
== END 2021-06-08 07:31 | disposition home or self-care (01) ==
LOC: HO.LAB 07:30
PROVIDERS: PCP Family Medicine; Visit Provider Family Medicine
DX: R73.01 Impaired fasting glucose (principal)
CPT/HCPCS: 36415; 80048

== ENCOUNTER → 2021-08-02 15:11 | Outpatient (BNVA) | payer BC, SELFPAY | PROVIDERS: PCP Family Medicine; Visit Provider Hospitalist ==

== ENCOUNTER 2022-02-18 13:06 | Outpatient (REF) | payer BC, SELFPAY ==
--- NOTE | ~2022-02-18 | XR_ITS ---
EXAMINATION: XR CHEST CLINICAL INFORMATION: Dyspnea. COMPARISON: Chest radiograph 11/16/2020. TECHNIQUE: 2 views of the chest were obtained. FINDINGS: No significant abnormality is noted involving the heart, lungs, mediastinum, bony thorax or soft tissues. XR/XR chest 2V IMPRESSION: Unremarkable examination.
== END 2022-02-18 13:07 | disposition home or self-care (01) ==
LOC: HO.XRAY 13:06
PROVIDERS: PCP Physician Assistant; Visit Provider Hospitalist
DX: R06.00 Dyspnea, unspecified (principal)
CPT/HCPCS: 71046

== ENCOUNTER → 2022-03-06 11:34 | Outpatient (REF) | payer BC, SELFPAY ==
--- NOTE | 2022-03-06 11:39 | ECG_ITS ---
Test Reason : COPD Blood Pressure : / mmHG Vent. Rate : 077 BPM Atrial Rate : 077 BPM P-R Int : 118 ms QRS Dur : 082 ms QT Int : 398 ms P-R-T Axes : 012 -06 010 degrees QTc Int : 450 ms Normal sinus rhythm with sinus arrhythmia Normal ECG When compared with ECG of 16-NOV-2020 15:18, No significant change was found Referred By: Isiah Montemayor Electronically Signed By:TOMER SPRAGUE
[2022-03-06 12:10] LABS: MANUAL DIFF FLAG NO
[2022-03-06 12:38] LABS: Basophils Percent Auto 0.4 % (0-2); Eosinophils Percent Auto 0.2 % (0-4); Hematocrit 36.5 % (37.0-47.0); Hemoglobin 11.8 g/dl (12.0-16.0); Imm Gran Abs Auto 0.05 X10*3/uL (0.00-0.03); Imm Gran Pct Auto 0.5 % (0.0-0.4); Lymphocytes Absolute Auto 2.2 X10*3/uL (1.2-4.9); Lymphocytes Percent Auto 21.2 % (20-40); Mean Corpuscular HGB Conc 32.3 g/dl (31.0-35.0); Mean Corpuscular Hemoglobin 27.6 pg (27.0-33.0); Mean Corpuscular Volume 85.5 fL (80.0-98.0); Mean Platelet Volume 9.4 fL (9.4-12.3); Monocytes Absolute Auto 0.7 X10*3/uL (0.1-1.2); Monocytes Percent Auto 7.1 % (2-11); Neutrophils Absolute Auto 7.3 x10*3/uL (2.0-8.3); Neutrophils Percent Auto 70.6 % (45-73); Platelet Count 280 X10*3/uL (160-400); Red Blood Count 4.27 X10*6/uL (4.20-5.50); Red Cell Distribution Width 16.4 % (11.0-16.0); White Blood Count 10.3 X10*3/uL (4.8-10.8)
[2022-03-06 12:56] LABS: D Dimer High Sensitivity < 150 NG/ML
[2022-03-06 13:07] LABS: Anion Gap 18 (12-20); Blood Urea Nitrogen 12 mg/dL (9-16); Calcium 9.4 mg/dL (8.4-10.2); Carbon Dioxide 25 mmol/L (22-29); Chloride 101 mmol/L (96-108); Estimated Glomerular Filt Rate > 60; Glucose Random 91 mg/dL (60-115); Potassium 4.7 mmol/L (3.3-5.1); Sodium 139 mmol/L (135-145)
[2022-03-06 13:21] LABS: Erythrocyte Sedimentation Rate 12 MM/HR (0-20)
[2022-03-06 13:28] LABS: TSH reflex Free T4 2.55 uIU/mL (0.32-4.0)
[2022-03-07 20:13] LABS: Immunoglobulin E 52 kU/L (<OR=114)
[2022-03-08 14:31] LABS: SARS COV2 IgG NEGATIVE
== END ==
LOC: HO.CARD 11:34
PROVIDERS: PCP Physician Assistant; Visit Provider Hospitalist
DX: R00.2 Palpitations (principal); R06.00 Dyspnea, unspecified; J44.9 Chronic obstructive pulmonary disease, unspecified
CPT/HCPCS: 36415; 80048; 82785; 84443; 85025; 85379; 85652; 86769; 93005

== ENCOUNTER → 2022-04-03 10:24 | Outpatient (REF) | payer BC, SELFPAY ==
--- NOTE | 2022-04-03 10:28 | CA_ITS ---
Transthoracic Echocardiogram Patient (Last, First, Middle): Samina Rojas M Gender: Female Date of : 1965 Age: 57 Procedure Date: 04/03/2022 Procedure Type: Transthoracic Echocardiogram Location: OP Height: 165.1 cm Weight: 97.52 kg BSA: 2.04 m2 Heart Rate: 82 bpm BP: 142 / 80 mmHg Syruper: KASI Referring MD: Jose Oliveira PA-C Pomologist: Doni Canales MD Symptoms: R06.00 - Dyspnea, unspecified Study Quality: Adequate w contrast ECG Rhythm: Sinus Conclusions: - 1. Normal LV systolic function with impaired relaxation filling pattern but reduced global longitudinal strain 2. Normal cardiac valvular Doppler 3. Normal RV systolic pressure 4. No gross pericardial effusion Findings Procedure Information Contrast agent, definity, is being given per protocol without apparent complications. Left Ventricle Normal left ventricular size, thickness, and systolic function. The visually estimated ejection fraction is between 65-70%. Spectral Doppler is indicative of an impaired relaxation filling pattern. E/E prime ratio is between 8 and 15 consistent with indeterminate filling pressures. Right Ventricle Normal right ventricular cavity size and systolic function. Atria The left atrium is normal in size. There is lipomatous hypertrophy of the interatrial septum. There is no evidence of interatrial shunt. The right atrium is normal in size. Aortic Valve Normal aortic valve structure and function. There is no aortic valve stenosis. There is no aortic valve regurgitation. Mitral Valve Likely normal mitral valve structure and function. There is trace mitral valve regurgitation. There is no mitral valve stenosis. Pulmonic Valve The pulmonic valve is likely normal. Tricuspid Valve Normal tricuspid valve structure. There is trace tricuspid valve regurgitation. The right ventricular systolic pressure is normal. The right ventricular systolic pressure is 26 mmHg. Normal right atrial pressure. There is no evidence of pulmonary hypertension. Great Vessels All visible segments of the aorta are normal in size. The pulmonary artery was not well visualized. Venous The inferior vena cava is normal in size and collapses greater than 50% with inspiration. Pericardium/Pleural There is no evidence of pericardial effusion. Prior Study Comparison No significant change compared to prior study dated: 06/13/2020. Measurements 2D Linear Measurements IVSd: 1.15 0.6-0.9/0.6-1.0 cm LVIDd: 5.20 3.9-5.3/4.2-5.9 cm LVIDd Index: 2.55 2.4-3.2/2.2-3.1 cm/m2 LVIDs: 3.16 2.0-3.6 cm LVPWd: 1.00 0.7-1.1 cm LA Diam: 3.90 2.7-3.8/3.0-4.0 cm LAIDs Index: 1.91 1.5-2.3 cm/m2 LV Mass: 266.38 67-162/88-224 g LV Mass Index: 130.58 43-95/49-115 g/m2 LVOT Diam: 2.00 3.0+(-)1.3 cm 2D Systolic Function EF 4C: 68.00 >55% EF 2C: 73.50 >55% Mitral Valve MV Pk E: 0.53 MV PK A: 0.77 MV Decel Time: 175.00 E/A: 0.70 E'Lateral: 6.09 E'Medial: 4.57 E/E' Med: 11.60 E/E' Lat: 8.70 PHT: 51.00 MVA PHT: 4.31 Decel [place]: 3.03 Aortic Valve AoV Pk Darryl: 1.44 AoV Pk Grad: 8.00 YOSELIN: 2.51 LVOT LVOT Pk Darryl: 1.08 LVOT Mn Darryl: 0.77 LVOT VTI: 0.22 LVOT Pk Grad: 5.00 LVOT Mn Grad: 3.00 LVOT Diam: 2.00 LVOT Area: 3.14 Diastolic Function MV Pk E: 0.53 MV Pk A: 0.77 E/A: 0.70 E'Medial: 4.57 E/E' Med: 11.60 E' Laterial: 6.09 E/E' Lat: 8.70 Right Ventricle TAPSE (mm): 19.80 TVS' Darryl: 13.10 Tricuspid Valve TR Pk Darryl: 2.39 TR Pk Grad: 23.00 RA Press: 3.00 RVSP: 26.00 Great Vessels Aorta Sinus of Valsalva: 3.20 2.0-3.5 cm Ao Asc: 3.50 2.1-3.4 cm Pulmonary Valve PV Pk Darryl: 1.01 Peak PV Grad: 4.00 Updated in Other Vendor System with Status of Final Doni Canales MD electronically signed on 04/03/2022 6:35:40 PM with status of Final
== END ==
LOC: HO.CARD 10:24
PROVIDERS: Visit Provider Physician Assistant
DX: R06.00 Dyspnea, unspecified (principal)
CPT/HCPCS: 93306; Q9957

== ENCOUNTER 2022-05-13 07:33 | Outpatient (REF) | payer BC, SELFPAY ==
--- NOTE | ~2022-05-13 | XR_ITS ---
EXAMINATION: BILATERAL AP KNEE STANDING. LEFT KNEE. CLINICAL INFORMATION: Left knee pain COMPARISON: None TECHNIQUE: Bilateral AP knee standing. Left knee 2 views. FINDINGS: Bilateral AP knee: There is interval mild loss of medial compartment joint space both knees. No visible fracture, dislocation or bony erosive changes. The soft tissues are normal. Left knee: There is loss of patellar femoral compartment joint space with superior inferior periarticular spurring. No abnormal joint effusion seen. No acute fracture, lytic or sclerotic process. XR/XR knee LT 2V IMPRESSION: 1. Mild degenerative changes medial compartment both knees. 2. Mild degenerative changes patellofemoral compartment left knee with periarticular spurring. No visible acute fracture or dislocation seen. No suprapatellar joint effusion.
--- NOTE | ~2022-05-13 | XR_ITS ---
EXAMINATION: BILATERAL AP KNEE STANDING. LEFT KNEE. CLINICAL INFORMATION: Left knee pain COMPARISON: None TECHNIQUE: Bilateral AP knee standing. Left knee 2 views. FINDINGS: Bilateral AP knee: There is interval mild loss of medial compartment joint space both knees. No visible fracture, dislocation or bony erosive changes. The soft tissues are normal. Left knee: There is loss of patellar femoral compartment joint space with superior inferior periarticular spurring. No abnormal joint effusion seen. No acute fracture, lytic or sclerotic process. XR/XR knee standing BI IMPRESSION: 1. Mild degenerative changes medial compartment both knees. 2. Mild degenerative changes patellofemoral compartment left knee with periarticular spurring. No visible acute fracture or dislocation seen. No suprapatellar joint effusion.
== END 2022-05-13 07:34 | disposition home or self-care (01) ==
LOC: HO.HOSX 07:33
PROVIDERS: Visit Provider Physician Assistant
DX: M17.12 Unilateral primary osteoarthritis, left knee (principal)
CPT/HCPCS: 20610; 73560; 73565; J1040

== ENCOUNTER 2022-06-04 07:30 | Outpatient (REF) | payer BC, SELFPAY ==
--- NOTE | ~2022-06-04 | XR_ITS ---
EXAMINATION: XR CHEST CLINICAL INFORMATION: Pleurodynia COMPARISON: Chest radiograph from 02/18/2022 TECHNIQUE: 2 views of the chest were obtained. FINDINGS: Biapical pleural parenchymal scarring. No pneumothorax. Trachea is midline. The mediastinal silhouette is not enlarged. Aorta demonstrates tortuosity. No large pleural effusion. Degenerative changes of the thoracolumbar spine. Soft tissues are unremarkable. XR/XR chest 2V IMPRESSION: No acute cardiopulmonary process.
== END 2022-06-04 07:31 | disposition home or self-care (01) ==
LOC: HO.XRAY 07:30
PROVIDERS: PCP Physician Assistant; Visit Provider Hospitalist
DX: R07.81 Pleurodynia (principal)
CPT/HCPCS: 71046

== ENCOUNTER 2022-08-09 07:24 | Outpatient (REF) | payer BC, SELFPAY ==
--- NOTE | ~2022-08-09 | MR_ITS ---
EXAMINATION: MR KNEE WITHOUT CONTRAST, LEFT CLINICAL INFORMATION: Primary osteoarthritis. Patient reports prior meniscal surgery 3 years prior. COMPARISON: X-rays of left knee April 2022. MRI of the left knee March 2020. TECHNIQUE: MRI of the knee without contrast was performed using routine sequences on a high-field scanner. FINDINGS: MENISCI: Medial Meniscus: There is attenuation of the posterior horn and posterior root and blunting and attenuation of the body. This most likely reflects postsurgical result given its appearance and when compared with the prior examination. There is a small fluid collection compatible with synovial recess or possibly a meniscal cyst abutting the peripheral margin of the posterior horn of the medial meniscus which is not seen previously. This measures approximately 5 x 3 x 2 mm. Lateral Meniscus: There is a lobulated cystic collection abutting and possibly arising from the anterior root of the lateral meniscus and also abutting the distal fibers of the anterior cruciate ligament. This could reflect degenerative change and/or degenerative tearing of the anterior root of the meniscus. This also may be in part related to mucoid degeneration of the ACL detailed below. LIGAMENTS: Cruciate: ACL: There is mucoid degeneration of the anterior cruciate ligament which is new/increased compared to prior. There is also a lobulated fluid collection along the proximal fibers which could reflect synovial recess or additional interligamentous cruciate cyst measuring up to approximately 1 cm. Enthesopathic cystic change noted within the tibial attachment is new compared to prior. PCL: Intact. Collateral: Intact. EXTENSOR MECHANISM: Intact. ARTICULAR CARTILAGE/BONE: Patellofemoral Compartment: There is nonuniform up high-grade cartilage loss most prominent in the medial facet and median ridge of the patella. Scattered areas of subchondral cystic change noted. Marginal osteophytes present. Additional areas of cartilage loss present most evident in the distal medial trochlea similar to prior. Findings indicative of [id number] patellofemoral arthrosis unchanged. Medial Compartment: There are marginal osteophytes. There are areas of predominantly partial-thickness cartilage loss noted throughout the weight-bearing portion of the compartment involving both the femoral and tibial articular surfaces. Minimal subchondral cystic change on the femoral side, overall [id number] This has not changed significantly compared to prior. However, the bone marrow edema noted on both sides of the joint have cleared. This likely reflects healed insufficiency fractures. Overall [id number] arthrosis with the previously noted marrow edema cleared. Lateral Compartment: There are small marginal osteophytes. Minimal cartilage heterogeneity of the anterior femoral articular cartilage. Overall minimal arthrosis unchanged. JOINT FLUID AND BURSAE: There is a mild joint effusion. MR/MR knee LT wo con IMPRESSION: 1. Abnormal medial meniscus most likely reflecting postsurgical result. Small fluid collection abutting the peripheral margin of the posterior horn which could reflect a meniscal cyst or synovial recess. Favor synovial recess as I do not see a recurrent tear. 2. Small cyst/cystic collection abutting the anterior root of the lateral meniscus which could reflect degenerative change or degenerative tearing of the anterior root of the meniscus. 3. Mucoid degeneration of the anterior cruciate ligament new compared to prior. Cyst versus synovial recess along the proximal fibers of the anterior cruciate ligament may be related to the mucoid degeneration which has developed since the prior exam. 4. [id number] arthrosis of the patellofemoral compartment and medial compartment unchanged. Marrow edema in the femur and tibia has cleared indicative of healing of the previously noted insufficiency fracture or spontaneous osteonecrosis of the knee. 5. Minimal arthrosis of the lateral compartment unchanged. 6. Mild joint effusion.
== END 2022-08-09 07:25 | disposition home or self-care (01) ==
LOC: HO.MRI 07:24
PROVIDERS: Visit Provider Physician Assistant
DX: M17.12 Unilateral primary osteoarthritis, left knee (principal)
CPT/HCPCS: 73721

== ENCOUNTER → 2022-09-09 11:13 | Outpatient (BNVA) | payer BC, SELFPAY | PROVIDERS: PCP Physician Assistant; Visit Provider Orthopaedic Surgery | DX: Z13.89 Encounter for screening for other disorder (principal) ==

== ENCOUNTER → 2022-09-13 13:03 | Outpatient (BNVA) | payer BC, SELFPAY | PROVIDERS: PCP Physician Assistant; Visit Provider Hospitalist | DX: Z13.89 Encounter for screening for other disorder (principal) ==

== ENCOUNTER → 2022-09-30 11:05 | Outpatient (BNVA) | payer BC, SELFPAY | PROVIDERS: PCP Physician Assistant; Visit Provider Hospitalist | DX: Z13.89 Encounter for screening for other disorder (principal) ==

== ENCOUNTER → 2022-10-16 14:56 | Outpatient (BNVA) | payer BC, SELFPAY | PROVIDERS: PCP Physician Assistant; Visit Provider Anesthesiology | DX: Z13.89 Encounter for screening for other disorder (principal) ==

== ENCOUNTER → 2022-10-29 10:57 | Outpatient (BNVA) | payer BC, SELFPAY | PROVIDERS: PCP Physician Assistant; Visit Provider Hospitalist | DX: J45.50 Severe persistent asthma, uncomplicated (principal); J30.89 Other allergic rhinitis; L20.82 Flexural eczema; R06.09 Other forms of dyspnea; R00.0 Tachycardia, unspecified; R60.0 Localized edema; R06.02 Shortness of breath | CPT/HCPCS: 94010 ==

== ENCOUNTER 2022-10-30 07:36 | Outpatient (REF) | payer BC, SELFPAY ==
[2022-10-30 07:46] LABS: MANUAL DIFF FLAG NO
[2022-10-30 08:05] LABS: Basophils Percent Auto 0.6 % (0-2); Eosinophils Absolute Auto 0.1 X10*3/uL (0.0-0.4); Eosinophils Percent Auto 2.3 % (0-4); Hematocrit 36.1 % (37.0-47.0); Hemoglobin 11.5 g/dl (12.0-16.0); Imm Gran Abs Auto 0.02 X10*3/uL (0.00-0.03); Imm Gran Pct Auto 0.3 % (0.0-0.4); Lymphocytes Absolute Auto 1.9 X10*3/uL (1.2-4.9); Lymphocytes Percent Auto 30.2 % (20-40); Mean Corpuscular HGB Conc 31.9 g/dl (31.0-35.0); Mean Corpuscular Hemoglobin 25.3 pg (27.0-33.0); Mean Corpuscular Volume 79.3 fL (80.0-98.0); Mean Platelet Volume 9.5 fL (9.4-12.3); Monocytes Absolute Auto 0.7 X10*3/uL (0.1-1.2); Monocytes Percent Auto 10.7 % (2-11); Neutrophils Absolute Auto 3.4 x10*3/uL (2.0-8.3); Neutrophils Percent Auto 55.9 % (45-73); Platelet Count 356 X10*3/uL (160-400); Red Blood Count 4.55 X10*6/uL (4.20-5.50); Red Cell Distribution Width 17.7 % (11.0-16.0); White Blood Count 6.2 X10*3/uL (4.8-10.8)
[2022-10-30 08:20] LABS: D Dimer High Sensitivity < 150 NG/ML
[2022-10-30 08:25] LABS: Alanine Aminotransferase 24 U/L (0-31); Albumin Level 4.3 g/dL (3.5-5.0); Alkaline Phosphatase 71 U/L (39-117); Anion Gap 13 (12-20); Aspartate Amino Transferase 19 U/L (5-31); Bilirubin Total 0.7 mg/dL (0.0-1.0); Blood Urea Nitrogen 11 mg/dL (9-16); Calcium 9.6 mg/dL (8.4-10.2); Carbon Dioxide 27 mmol/L (22-29); Chloride 105 mmol/L (96-108); Cholesterol 285 mg/dL; Estimated Glomerular Filt Rate > 60; Glucose Fasting 115 mg/dL (60-99); HDL Cholesterol 52 mg/dL; LDL Cholesterol Calculated 193 mg/dl; Sodium 141 mmol/L (135-145); Triglycerides 202 mg/dL
[2022-10-30 08:26] LABS: B Type Natriuretic Peptide 13 pg/mL (<100)
[2022-10-30 08:29] LABS: Troponin-I High Sensitivity < 2.7 ng/L (<3.5-17.0)
[2022-10-30 08:40] LABS: TSH reflex Free T4 4.93 uIU/mL (0.32-4.0)
[2022-10-30 09:01] LABS: Erythrocyte Sedimentation Rate 26 MM/HR (0-20)
[2022-10-30 14:09] LABS: Free T4 (Free Thyroxine) 1.21 ng/dL (0.71-1.85)
== END 2022-10-30 07:37 | disposition home or self-care (01) ==
LOC: HO.LAB 07:36
PROVIDERS: Absent Provider Hospitalist; PCP Physician Assistant; Visit Provider Physician Assistant
DX: E78.2 Mixed hyperlipidemia (principal); R00.0 Tachycardia, unspecified; R06.00 Dyspnea, unspecified; R06.02 Shortness of breath; R60.0 Localized edema
CPT/HCPCS: 36415; 80053; 80061; 83880; 84439; 84443; 84484; 85025; 85379; 85652

== ENCOUNTER → 2022-12-17 13:14 | Outpatient (BNVA) | payer BC, SELFPAY | PROVIDERS: PCP Physician Assistant; Visit Provider Hospitalist ==

== ENCOUNTER 2022-12-19 07:36 | Outpatient (REF) | payer BC, SELFPAY ==
[2022-12-19 08:15] LABS: Anion Gap 15 (12-20); Blood Urea Nitrogen 14 mg/dL (9-16); Calcium 9.8 mg/dL (8.4-10.2); Carbon Dioxide 23 mmol/L (22-29); Chloride 107 mmol/L (96-108); Cholesterol 251 mg/dL; Estimated Glomerular Filt Rate > 60; Glucose Fasting 107 mg/dL (60-99); HDL Cholesterol 63 mg/dL; LDL Cholesterol Calculated 160 mg/dl; Sodium 141 mmol/L (135-145); Triglycerides 141 mg/dL
== END 2022-12-19 07:37 | disposition home or self-care (01) ==
LOC: HO.LAB 07:36
PROVIDERS: Absent Provider Physician Assistant; PCP Physician Assistant; Visit Provider Anesthesiology
DX: E03.9 Hypothyroidism, unspecified (principal); Z87.81 Personal history of (healed) traumatic fracture
CPT/HCPCS: 36415; 72110; 80048; 80061; 84439; 84443

== ENCOUNTER 2022-12-26 | Outpatient (REF) | payer BC, SELFPAY ==
--- NOTE | 2022-12-26 08:28 | PFT_ITS ---
FLOWS: 1. FEV1 100% of predicted at 2.65 L. 2. FVC 94% of predicted at 3.25 L. 3. FEV1 to FVC ratio of 0.82. 4. No bronchodilator response. LUNG VOLUMES: 1. Total lung capacity 138% of predicted at 7.19 L. 2. Residual volume 179% of predicted at 3.66 L. 3. Slow vital capacity 111% of predicted at 3.53 L. 4. Expiratory reserve volume 40% of predicted at 0.37 L. 5. Diffusion capacity is normal. IMPRESSION: No obstructive or restrictive ventilatory defect. No bronchodilator response. Increased total lung capacity suggests hyperinflation. Increased residual volume suggests air trapping. Decreased expiratory reserve volume suggests extrathoracic restriction, likely secondary to abdominal obesity. Donaldo Terrell MD AP/MODL / [id number]
== END 2022-12-26 00:01 | disposition home or self-care (01) ==
LOC: HO.RESP
PROVIDERS: PCP Physician Assistant; Visit Provider Hospitalist
DX: J45.909 Unspecified asthma, uncomplicated (principal); B94.8 Sequelae of other specified infectious and parasitic diseases; Z79.52 Long term (current) use of systemic steroids
CPT/HCPCS: 94060; 94727; 94729

== ENCOUNTER 2023-01-17 14:59 | Outpatient (REF) | payer BC, SELFPAY ==
--- NOTE | ~2023-01-17 | MM_ITS ---
EXAMINATION: BONE DENSITOMETRY CLINICAL INDICATION: Long-term, current, use of systemic steroids. COMPARISON: Baseline BD dated 04/05/2011. TECHNIQUE: Using a Little1 DXA System (software version: 13.1) manufactured by [employer], dual-energy x-ray absorptiometry was performed of the lumbar spine and left hip. The images are of good technical quality. Summary results are attached. FINDINGS: AP SPINE L1-L4 (excluding L2 and L3): The data of L1-L4 has been changed to exclude the L2 and L3 vertebral bodies, because of L3 vertebroplasty may cause overestimation of lumbar spine density. Current: BMD 1.027 g/cm2, Z-score -1.1, T-score -1.2, osteopenia, 6.5% decrease from baseline (<5% change is not significant). Baseline: BMD 1.098 g/cm2. LEFT FEMUR, NECK: Current: BMD 0.887 g/cm2, Z-score -0.6, T-score -1.1, osteopenia. Baseline: BMD 0.971 g/cm2. LEFT FEMUR, TOTAL: Current: BMD 1.087 g/cm2, Z-score 0.7, T-score 0.6, normal, 5.8% increase from baseline (<5% change is not significant). Baseline: BMD 1.027 g/cm2. IDENTIFIED RISK FACTORS: Osteoporosis, height loss, low calcium intake, history of fracture (adult). Early menopause, secondary osteoporosis, glucocorticoids (chronic). HISTORY OF FRACTURE: Spine, femur/hip. MEDICATIONS: Vitamin D. MM/XR DEXA axial skeleton IMPRESSION: 1. DIAGNOSIS: Osteopenia based on the lowest T-score value of -1.2 in the lumbar spine applying World Health Organization criteria. 2. 10-YEAR FRACTURE RISK PREDICTION, FRAX: Major osteoporotic fracture (clinical spine, forearm, hip or shoulder) 17.8%. Hip fracture 1.2%. 3. Treatment Recommendations: NOF guidelines recommend consideration for treatment in postmenopausal women and men age 50 and older presenting with the following: -A hip or vertebral (clinical or morphometric) fracture. -T-score less than or equal to -2.5 at the femoral neck or spine after appropriate evaluation to exclude secondary causes. -Low bone mass at the hip or spine and a 10-year fracture probability by FRAX of greater than or equal to 3% for hip fracture or greater than or equal to 20% for major osteoporotic fracture based on the [place] adapted WHO algorithm. 4. Other Recommendations: All treatment decisions require clinical judgment and consideration of individual patient factors, including patient preferences, comorbidities, previous drug use, risk factors not captured in the FRAX model (e.g. frailty, falls, vitamin D deficiency, increased bone turnover, interval significant decline in bone density) and possible under or overestimation of fracture risk by FRAX. Additional medical evaluation for secondary cause of low bone mineral density may be appropriate. FUTURE SCAN RECOMMENDATION: People with diagnosed cases of osteoporosis or at high risk for fracture should have regular bone mineral density tests. For patients eligible for Medicare, routine testing is allowed once every 2 years. The testing frequency can be increased to one year for patients who have rapidly progressing disease, those who are receiving or discontinuing medical therapy to restore bone mass, or have additional risk factors.
== END 2023-01-17 15:00 | disposition home or self-care (01) ==
LOC: HO.MAMMO 14:59
PROVIDERS: PCP Physician Assistant; Visit Provider Physician Assistant
DX: Z13.820 Encounter for screening for osteoporosis (principal); Z78.0 Asymptomatic menopausal state; Z79.52 Long term (current) use of systemic steroids
CPT/HCPCS: 77080

== ENCOUNTER 2023-02-27 07:42 | Outpatient (REF) | payer BC, SELFPAY | END 2023-02-27 07:43 | disposition home or self-care (01) | LOC: HO.MAMMO 07:42 | PROVIDERS: PCP Physician Assistant; Visit Provider Physician Assistant | DX: Z12.31 Encounter for screening mammogram for malignant neoplasm of breast (principal) | CPT/HCPCS: 77063; 77067 ==

== ENCOUNTER → 2023-02-27 07:45 | Outpatient (BNV) | payer BC, SELFPAY | PROVIDERS: PCP Physician Assistant; Visit Provider Radiology Diagnostic Radiology | DX: Z12.31 Encounter for screening mammogram for malignant neoplasm of breast (principal) | CPT/HCPCS: 77063; 77067 ==

== ENCOUNTER 2023-03-06 08:04 | Outpatient (REF) | payer BC, SELFPAY ==
--- NOTE | 2023-03-06 08:07 | EMG_ITS ---
Bilateral tibial and peroneal motor studies were performed. Bilateral sural, superficial peroneal, and median and lateral plantar studies were performed and tibial H reflexes were obtained. Needle examination was performed. 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 MD LAURY Carrera/SYDNEE / [id number]
== END 2023-03-06 08:05 | disposition home or self-care (01) ==
LOC: HO.NEURO 08:04
PROVIDERS: PCP Physician Assistant; Visit Provider Physician Assistant
DX: R20.2 Paresthesia of skin (principal)
CPT/HCPCS: 95886; 95913

== ENCOUNTER 2023-04-01 07:30 | Outpatient (REF) | payer BC, SELFPAY ==
[2023-04-01 09:38] LABS: Estimated Average Glucose 108 mg/dL; Hemoglobin A1c % 5.4 % (<6.0)
[2023-04-01 09:56] LABS: Alanine Aminotransferase 29 U/L (0-31); Albumin Level 4.2 g/dL (3.5-5.0); Alkaline Phosphatase 66 U/L (39-117); Anion Gap 14 (12-20); Aspartate Amino Transferase 24 U/L (5-31); Bilirubin Total 0.4 mg/dL (0.0-1.0); Blood Urea Nitrogen 12 mg/dL (9-16); Calcium 9.5 mg/dL (8.4-10.2); Carbon Dioxide 25 mmol/L (22-29); Chloride 104 mmol/L (96-108); Cholesterol 187 mg/dL (<200); Estimated Glomerular Filt Rate > 60; Glucose Fasting 101 mg/dL (60-99); HDL Cholesterol 49 mg/dL (>40); Iron 58 mcg/dL (30-160); LDL Cholesterol Calculated 97 mg/dL (<100); Percent Iron Saturation 16 % (15-50); Sodium 139 mmol/L (135-145); Total Iron Binding Capacity 363 mcg/dL (228-428); Total Protein 7.3 g/dL (6.5-8.0); Triglycerides 207 mg/dL (<150); Unsaturated Iron Binding 305 ug/dL
[2023-04-01 10:15] LABS: TSH reflex Free T4 2.98 uIU/mL (0.32-4.0)
[2023-04-01 10:21] LABS: Folate 12.2 ng/mL (> or = 4.0); Vitamin B12 320 pg/mL (200-900)
== END 2023-04-01 07:31 | disposition home or self-care (01) ==
LOC: HO.LAB 07:30
PROVIDERS: PCP Physician Assistant; Visit Provider Physician Assistant
DX: E78.2 Mixed hyperlipidemia (principal); E53.8 Deficiency of other specified B group vitamins; D50.9 Iron deficiency anemia, unspecified; E03.9 Hypothyroidism, unspecified; R73.01 Impaired fasting glucose
CPT/HCPCS: 36415; 80053; 80061; 82607; 82746; 83036; 83540; 84443

== ENCOUNTER 2023-04-02 07:53 | Outpatient (AMB) | payer BC, SELFPAY ==
[2023-04-02 07:58] VITALS: BP 150/80; BMI 36.9
--- NOTE | 2023-04-02 07:58 | A.OFFPC_ITS ---
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 Required: No Accompanied by: Self / Same As Patient Allergies cephalexin [From KEFLEX] Allergy (Intermediate, Verified 04/02/23 08:04) RASH chlorhexidine [CHLORHEXIDINE] Allergy (Intermediate, Verified 04/02/23 08:04) ITCHY,RASH ibuprofen [IBUPROFEN] Allergy (Intermediate, Verified 04/02/23 08:04) RASH- PER H&P latex [LATEX] Allergy (Intermediate, Verified 04/02/23 08:04) RASH Medication List - Last Reconciled 04/02/23 by Jose Oliveira PA-C albuterol sulfate 90 mcg/actuation 2 inhalations PO Q4H PRN budesonide 0.5 mg (2 mL) inhalation BID 30 days [id number]-uvqygkhw-akciwlfpoo 160-9-4.8 mcg/actuation (Breztri Aerosphere) 2 inhalations inhalation BID 30 days cetirizine (All Day Allergy (cetirizine)) 10 mg PO DAILY PRN Dupixent Pen (dupilumab) 300 mg (2 mL) subcut Q2W NS epinephrine (EpiPen 2-Kali) 0.3 mg (0.3 mL) IM Q10M PRN 30 days fluticasone propionate 50 mcg/actuation 1 spray intranasal DAILY 30 days L.acid,casei,plant,saliv-B.ani 10 billion cell (2 billion ea) 1 cap PO DAILY levalbuterol HCl (Xopenex) 1.25 mg (3 mL) inhalation Q6H PRN 30 days levothyroxine 88 mcg PO DAILY 30 days montelukast 10 mg PO DAILY 90 days nebulizers As directed omeprazole 20 mg PO DAILY 3 months rosuvastatin 5 mg PO DAILY 90 days triamcinolone acetonide 0.1% topical Tobacco use date assessed: 12/26/22 Dental Screening Dental Screen Date: 04/02/23 Did you have a dental visit in the last 12 months?: Yes Did you have a dental problem in the last 6 months where you did not have access to dental care?: No Was dental information given to patient?: Patient has dentist HPI 3 m f/u HPI Details Patient is a 57-year-old female here today for a follow-up visit.? Patient's past medical history significant for moderate persistent asthma, hypothyroidism, eczema, allergic rhinitis, obesity. .. Neuropathy lower extremities: Most recent EMG testing showing moderate to severe neuropathy worsening left lower extremity. Not clear if this is related to previous surgery verses lumbar spine disease. She does have an abnormal gait to which she wears orthotics to help stabilize her gait. She has started in pulmonary rehab for her asthma and plans to be more physically active. She is discouraged that she has not lost much weight and is interested in injectable therapy to help her lose weight. Concern--> reports since having COVID in August of 2019 she has been having bilateral lower distal extremity pain, burning and heavy feeling worse when she walks. She does not note any notable swelling. She has had similar pain at higher extent when she took cholesterol medication. She is worried as she is not able to walk correctly . PLNA: Check her vitamin B12 folate levels and send for EMG testing to evaluate for neuropathy in her lower extremities .. Moderate persistent asthma/ Allergies: (? has a previous history of severe COVID infection leading? to 3 months out of work). 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 steroids.? Has been started on budesonide inhaled nebulizer treatments.? She is though feels as effective as she would like.. She continues to have shortness of breath on exertion and is requesting to have echocardiogram done.? it is not followed by an field attendant in does get allergy injections for her eczema allergies. Continues in pulmonary rehab .. Hypothyroidism: Most recent TSH is stable. We have increased her levothyroxine 88 mcg which has been effective. .. Hyperlipidemia:? Patient does have a history of elevated cholesterol, she does report family history of early heart attacks and .? She was on Lipitor though felt on tolerable myalgias in her lower extremities and discontinued statin.? Has started low-dose statin again and cholesterol has improved. Laboratory Tests 03/06/22 10/30/22 12/19/22 12:09 07:45 07:43 Hgb 11.8 L 11.5 L Fasting Glucose 107 H Hemoglobin A1c % Triglycerides Cholesterol TSH 12/19/22 12/19/22 12/19/22 07:43 07:43 07:43 Hgb Fasting Glucose Hemoglobin A1c % Triglycerides 141 Cholesterol 251 TSH 4.20 H 04/01/23 04/01/23 04/01/23 07:35 07:35 07:35 Hgb Fasting Glucose 101 H Hemoglobin A1c % 5.4 Triglycerides Cholesterol 187 TSH 2.98 04/01/23 07:35 Hgb Fasting Glucose Hemoglobin A1c % Triglycerides 207 H Cholesterol TSH [facility] Medical History (Updated 04/02/23 @ 08:23 by Jose Oliveira PA-C) Tachycardia Bronchitis Dyspnea Lower extremity edema Diastolic dysfunction 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 Brother No problems noted. Brother No problems noted. Sister No problems noted. Sister No problems noted. Sister No problems noted. Son No problems noted. Son No problems noted. Son No problems noted. Daughter No problems noted. Social History Household Members: Family Household Members Other:: spouse/son Housing: House Alcohol intake: current Alcohol intake frequency: a few times a month Patient Tobacco Use Status: Never used Tobacco e-Cigarette/Vaping Use: Never Used Second Hand Smoke Exposure: No service: No Current occupational status: employed Current occupational exposures/hazards: No Cognitive needs: No Hearing needs: No Vision needs: No Questionnaire Thrive Questionnaire Date Thrive assessed: 03/13/22 MARLYS-7 AMB Questionnaire MARLYS-7 Date MARLYS - 7 assessed: 06/12/21 Source: Developed by Drs. Ruslan Crespo, Shayna Otero, Bart Butler and colleagues, with an educational jess from [employer]. Review of Systems Const Denies headache(s) Eyes Denies loss of vision ENT Denies vertigo, Denies dizziness, Denies headache(s) and Denies sore throat Card Denies chest pain, Denies leg edema and Denies lightheadedness Resp Denies cough, Denies hemoptysis and Denies wheezing GI Denies abdominal pain, Denies melena, Denies constipation, Denies diarrhea and Denies vomiting Denies urinary frequency, Denies dysuria and Denies urinary urgency Musc Denies arthralgias, Denies joint swelling, Denies numbness and Denies tingling Neuro Denies Abnormal speech present, Denies behavioral changes, Denies vertigo, Denies dizziness, Denies headache(s), Denies loss of vision, Denies memory loss, Denies numbness and Denies tingling Psych Denies anxiety, Denies behavioral changes, Denies depression, Denies memory loss and Denies panic attacks Ovidio/Lymph Denies easy bleeding and Denies easy bruising Aller/Immun Denies wheezing Physical exam (Primary Care) Vital Signs: Last Vital Signs BP 150/80 H 04/02/23 07:58 BMI result Body Mass Index 36.9 Tobacco/Smoking Status: Tobacco use Status Tobacco use date assessed 12/26/22 04/02/23 08:00 Patient Tobacco Use Status Never used Tobacco 04/02/23 08:00 e-Cigarette/Vaping Use Never Used 04/02/23 08:00 Thrive Assessment: Date of Thrive Assessment Date Thrive assessed 03/13/22 04/02/23 08:00 Const General: healthy appearing, no acute distress, alert and awake Nutritional Appearance: well nourished Orientation/consciousness: oriented to person, oriented to place and oriented to time HENMT Ears: TM's normal bilaterally General nose exam: Normal nasal mucous membranes and turbinates present Eyes Conjunctivae: conjunctivae normal Sclerae: sclerae normal Pupils: Equal, round and reactive pupils present Neck Neck: Yes no lymphadenopathy and Yes no JVD Thyroid: Thyroid normal Carotids: no bruits Resp Effort & Inspection: normal respiratory effort and not tachypneic Auscultation: no crackles, no rales, no rhonchi and no wheezes Cardio Rate: regular rate Rhythm: regular rhythm Heart sounds: no murmurs and normal S1 and S2 GI Palpation (GI): Soft to palpation, nontender, no hepatomegaly and no splenomegaly Auscultation: normal bowel sounds Skin General skin exam: no rashes or lesions noted and dry skin Neuro General: oriented to person, oriented to place and oriented to time Cranial nerves: Yes Equal, round and reactive pupils present Speech: No Abnormal speech present Gait exam (Neuro): Normal gait present Motor exam (neuro): no tremor noted Extrem Right upper extremity: full ROM Left upper extremity: full ROM Right lower extremity: full ROM; no edema Left lower extremity: full ROM; no edema Psych Mental Status: mental status grossly normal Speech and movement: Normal speech and movement present Affect: normal affect Attitude: cooperative Thought process: Normal thought process present Assessment and Plan Assessment & Plan (1) Hyperlipidemia: Code(s): E78.5 - Hyperlipidemia, unspecified Qualifiers: Hyperlipidemia type: mixed hyperlipidemia Qualified Code(s): E78.2 - Mixed hyperlipidemia Plan: Have restarted dose statin therapy to which total cholesterol and LDL have much improved. Will continue on statin therapy with goal LDL to remain below 130 (2) Paresthesia of lower extremity: Code(s): R20.2 - Paresthesia of skin Plan: Patient reports tired achy/burning lower extremities worse with activity. No swelling or discoloration and lower extremities. EMG showing moderate to severe bilateral lower extremity neuropathy. No clear cause of this at this time. Could be related to previous surgeries and her weight. She was told it was not related to her lumbar disc disease. (3) Microcytic anemia: Code(s): D50.9 - Iron deficiency anemia, unspecified Plan: Patient does have a slight anemia on most recent labs which has been a chronic condition. (4) Gait disturbance: Code(s): R26.9 - Unspecified abnormalities of gait and mobility Plan: Has had a gait disturbance many years now, does report having extensive foot surgeries which attributes to her gait disturbance. She will continue in pulmonary rehab working to be more physically active on the treadmill. (5) Elevated fasting blood sugar: Code(s): R73.01 - Impaired fasting glucose Plan: Have noted elevations in her fasting blood sugars likely secondary to steroid use. Will continue to follow fasting blood sugar and check an A1c to evaluate for diabetes. (6) Essential hypertension: Code(s): I10 - Essential (primary) hypertension Plan: Continues to elevated blood pressure readings here in the office. She reports at a recent blood draw her blood pressure was normal. She will continue to monitor blood pressure at home and report back if blood pressures remain in over 140/90 Will consider antihypertensive medication. (7) Severe persistent allergic asthma: Code(s): J45.50 - Severe persistent asthma, uncomplicated Plan: Continues to follow pulmonology. Continues on maintenance inhaler and rescue inhalers. Also on Dupixent. Unfortunately continues to shortness of breath worse on exertion. Recent PFTs done waiting results Pulmonology feels patient would benefit from pulmonary rehab (8) Obese: Code(s): E66.9 - Obesity, unspecified Qualifiers: Body mass index: BMI 36.0-36.9 Obesity classification: adult class 2 (BMI 35 - 39.9) Obesity type: due to excess calories Serious obesity comorbidity presence: with serious comorbidity Qualified Code(s): E66.01 - Morbid (severe) obesity due to excess calories; Z68.36 - Body mass index [BMI] 36.0-36.9, adult Plan: Patient's BMI 36. She is interested in medication to help her lose weight. Will trial WEGOVY Orders: Orders Complete Blood Count no Diff Today D50.9 - Iron deficiency anemia, unspecified Comprehensive [place]. Panel Fast Today I10 - Essential (primary) hypertension IRON PROFILE Today D50.9 - Iron deficiency anemia, unspecified TSH reflex Free T4 Today E03.9 - Hypothyroidism, unspecified Lipid Panel Today E78.2 - Mixed hyperlipidemia Medications: New semaglutide (weight loss) (Wegovy) administer weeks 1 through 4 of therapy 0.25 mg (0.5 mL) subcut QWEEK 4 weeks 2 mL 0RF E66.01 - Morbid (severe) obesity due to excess calories, Z68.36 - Body mass index [BMI] 36.0-36.9, adult Changed From levothyroxine 88 mcg PO DAILY 30 days 30 tabs 3RF E03.9 - Hypothyroidism, unspecified To levothyroxine 88 mcg PO DAILY 90 days 90 tabs 1RF E03.9 - Hypothyroidism, unspecified Coding Level of Care Code Est Pt Level 4 (17005) Diagnoses Mixed hyperlipidemia E78.2 Hyperlipidemia type: mixed hyperlipidemia Paresthesia of lower extremity R20.2 Microcytic anemia D50.9 Gait disturbance R26.9 Elevated fasting blood sugar R73.01 Essential hypertension I10 Severe persistent allergic asthma J45.50 Class 2 severe obesity due to excess calories with serious comorbidity and body mass index (BMI) of 36.0 to 36.9 in adult E66.01; Z68.36 Body mass index: BMI 36.0-36.9 Obesity classification: adult class 2 (BMI 35 - 39.9) Obesity type: due to excess calories Serious obesity comorbidity presence: with serious comorbidity
== END 2023-04-02 08:33 | disposition home or self-care (01) ==
PROVIDERS: PCP Physician Assistant; Visit Provider Physician Assistant
DX: J45.50 Severe persistent asthma, uncomplicated (principal); E78.2 Mixed hyperlipidemia; E66.01 Morbid (severe) obesity due to excess calories; Z68.36 Body mass index [BMI] 36.0-36.9, adult; R20.2 Paresthesia of skin; D50.9 Iron deficiency anemia, unspecified; R26.9 Unspecified abnormalities of gait and mobility; R73.01 Impaired fasting glucose; I10 Essential (primary) hypertension
CPT/HCPCS: 99214

== ENCOUNTER 2023-04-24 12:56 | Outpatient (AMB) | payer BC, SELFPAY ==
[2023-04-24 12:58] VITALS: BP 136/74; PULSE 99; O2SAT 97
--- NOTE | 2023-04-24 12:58 | A.OFFVIS_ITS ---
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 Required: No Emblem Fuser Tender: Emblem Fuser Tender offered & declined Accompanied by: Self / Same As Patient Allergies cephalexin [From KEFLEX] Allergy (Intermediate, Verified 04/24/23 13:05) RASH chlorhexidine [CHLORHEXIDINE] Allergy (Intermediate, Verified 04/24/23 13:05) ITCHY,RASH ibuprofen [IBUPROFEN] Allergy (Intermediate, Verified 04/24/23 13:05) RASH- PER H&P latex [LATEX] Allergy (Intermediate, Verified 04/24/23 13:05) RASH Medication List - Last Reconciled 04/24/23 by Stephie Steel LPN albuterol sulfate 90 mcg/actuation 2 inhalations PO Q4H PRN budesonide 0.5 mg (2 mL) inhalation BID 30 days hzovtrgfkh-yzemxjqt-kdpkyqjnwu 160-9-4.8 mcg/actuation (Breztri Aerosphere) 2 inhalations inhalation BID 30 days cetirizine (All Day Allergy (cetirizine)) 10 mg PO DAILY PRN Dupixent Pen (dupilumab) 300 mg (2 mL) subcut Q2W NS epinephrine (EpiPen 2-Kali) 0.3 mg (0.3 mL) IM Q10M PRN 30 days fluticasone propionate 50 mcg/actuation 1 spray intranasal DAILY 30 days L.acid,casei,plant,saliv-B.ani 10 billion cell (2 billion ea) 1 cap PO DAILY levalbuterol HCl (Xopenex) 1.25 mg (3 mL) inhalation Q6H PRN 30 days levothyroxine 88 mcg PO DAILY 90 days montelukast 10 mg PO DAILY 90 days nebulizers As directed omeprazole 20 mg PO DAILY 3 months rosuvastatin 5 mg PO DAILY 90 days semaglutide (weight loss) (Wegovy) 0.25 mg (0.5 mL) subcut QWEEK 4 weeks triamcinolone acetonide 0.1% topical HPI HPI Comments History of Present Illness Details The patient is a 58-year-old woman with a known history of lifelong asthma in significant allergies who apparently developed COVID-19 back in August of 2019. Her course was complicated with bilateral pneumonia. She stayed home she did not want to be hospitalized. Ever since then her respiratory symptoms have not been the same. She has been noticing increasing shortness of breath even with minimal activity moderate severity. She could not return to work for several months after developing COVID due to her significant shortness of breath. In addition to that she has noted increasing heart rate with any activity. She did undergo an echocardiogram which was normal. The patient had allergy testing done with significant allergies and elevated IgE. The patient has not use any biologic therapy. At this point will try to maximize respiratory therapy in then reassess the need for biologic therapy. Also, recently she started developing some chest tightness and pressure. She went to her primary care who requested a chest x-ray. The x-ray demonstrated no acute disease. However her symptoms got worse she went to the ED which she has additional evaluation and blood work. Her D-dimer was below 200 which is reassuring. She was given a presumptive diagnosis of pleurisy. Currently chest discomfort has improved she currently does not have any discomfort at this time. 06/03/2022 the patient is here for a pulm onary follow-up visit. The patient had been doing well until recently when she traveled to the [facility]. There she started developing a worsening cough and just chest congestion. She has been coughing yellowish phlegm. Moderate severity. She is having to use her nebulizer more often. No significant wheezing. Will try to hold off on any prednisone. She denies any fevers or chills. She has not been tested for COVID or any of the although viral syndromes. She will monitor closely for any symptoms. If she does develop any fevers or any other concerning symptoms she needs to go ahead and at least swab for COVID-19. The patient in the meantime will start antibiotics to treat her for bronchitis. If the patient is not better after starting the doxycycline she is to get a chest x-ray. She is complaining of some pleuritic component to the chest discomfort primarily on the Right sided chest area. Appears to be just below her breast. Again she is holding on to when she is taking a deep breath in. She will try taking Aleve. No crackles or wheezing or bronchial breath sounds that I could appreciate. Again, she will get an x-ray if the patient is not better after the Aleve and taking the cough medication as well as the antibiotic. 09/13/2022 the patient is here for a pulm onary follow-up visit. Since last week and she started developing increasing chest tightness and shortness of breath. She continue to exercise at the rehab. However she is complaining of the shortness of breath moderate severity. She has been using her inhalers. She has not use her nebulizer as of yet. She is still for the based on this we can. The Dupixent has improved her allergies significantly. The patient does have significant allergies specially in the spring and fall. I do believe that she responding well to the Dupixent although may be partial. She may benefit from switching over to a different biologic such as, Tezspire. In meantime she is going to start using her nebulized therapy. Ending give herself Dupixent. I will send her prednisone to the pharmacy that if she were to worsen she can start prednisone taper. 09/30/2022 the patient has a telephone vis it today. The patient tested positive for COVID at the end of August. She had been having symptoms even prior to that. Now having increasing shortness of breath along with productive cough sinus pressure and pain. She has been using the amoxicillin liquid in addition to that has been tapering from the prednisone. She has been using Sudafed. Although she has not seen any significant improvement. She still expectorating green phlegm. Therefore, we will go ahead and send her doxycycline to treat her for postviral bacterial infection such as Staph aureus. In addition to that she can try some Afrin. She continue with the prednisone. I did recommend that she continue with therapy for another week and then retest over the weekend to see if she can go back to work. She continues use her nebulizer twice a day. She also continues use her respiratory therapy as prescribed. The patient denies any chest pains or any palpitations. She denies any leg swelling. 10/29/2022 The patient is here for a sick visit. She is not feeling well. Has been having worsening dyspnea and tachycardia. She has been using all her respiratory meds, but does not feel like they are helping. HAs been taking the Dupixent and wondering if she should consider changing Biologic to Tezspire. But, her respiratory exam and spirometry does not demonstrate that her symptoms are indeed respiratory. She has significant tachycardia, with a resting HR of 96-100. Her ECHO from 02/2022 also demonstrates intermediate impaired relaxation. She also has worsenig LE edema. During the exam also complianed of SSCP with deep breathing. I will have her undergo bloodwork and start Lasix. If her symptoms worsen she may need an urgent evaluation. In the meantime, if her Ddimer id elevated we will request a CTA. 12/17/2022 the patient is here for a pulm onary follow-up visit. She complains still of dyspnea on exertion. Ylhq-eh-zjhjxrnn severity. She also noted some increased lower extremity edema. It does wax and wane. She tries to limit her salt intake. The patient has continue with the Dupixent and has continue with respiratory medicines. At this point will plan to repeat her pulmonary function studies in based on the fact that she has post COVID syndrome and significant asthma I do believe that she will benefit from pulmonary rehabilitation. Therefore will request a PFTs in pulmonary rehab at this time. Also to note. The patient will had an elevated fasting blood sugar. She is following closely with primary care. Explained to her that she needs to be very careful with systemic cortical steroids worsening insulin resistance. 04/24/2023 the patient is here for pulmonary follow-up visit. Since we last spoke she is been participating in pulmonary rehabilitation. This has been helpful and beneficial. Although she is been getting some knee pains and she will be seeing orthopedics Soon. The patient continues on her current respiratory therapy with good effect. She continues with biologic therapy, Dupixent without any adverse effects. Denies any eczema. Recently she did get allergy shots and she did have significant reaction. Therefore she will follow- up with her [employer]orer [employer] closely. She was given a dose of Kenalog because of the significant adverse reaction to the allergy shots. Respiratory gr the patient is stable on current regimen. The appears that the tachycardia has been improving which is reassuring. Likely sequelae from her COVID-19 infection. [facility] Medical History (Updated 04/02/23 @ 08:23 by Jose Oliveira PA-C) Tachycardia Bronchitis Dyspnea Lower extremity edema Diastolic dysfunction [id number] syndrome PONV (postoperative nausea and vomiting) Asthma GERD (gastroesophageal reflux disease) Elevated cholesterol Thyroid disease Eczema Surgical History History of surgical removal of ganglion cyst H/O colonoscopy Hx of total hip arthroplasty History of ankle surgery Family History Father CVD (cardiovascular disease) Asthma Mother Breast cancer History of corneal transplant HTN (hypertension) Hypercholesterolemia Brother No problems noted. Brother No problems noted. Brother No problems noted. Sister No problems noted. Sister No problems noted. Sister No problems noted. Son No problems noted. Son No problems noted. Son No problems noted. Daughter No problems noted. Social History (Updated 04/24/23 @ 13:07 by Stephie Steel LPN) Household Members: Family Household Members Other:: spouse/son Housing: House Alcohol intake: current Alcohol intake frequency: a few times a month Patient Tobacco Use Status: Never used Tobacco e-Cigarette/Vaping Use: Never Used Second Hand Smoke Exposure: No service: No Current occupational status: employed Current occupational exposures/hazards: No Cognitive needs: No Hearing needs: No Vision needs: No Review of Systems Const Denies chills, Reports fatigue and Denies night sweats Eyes Denies diplopia, Denies loss of peripheral vision, Denies loss of vision, Denies eye pain, Denies seeing flashes, Denies photophobia and Denies tunnel vision ENT Denies change in voice, Denies lip swelling, Denies mouth pain, Reports nasal congestion, Reports nasal discharge and Denies tongue swelling Card Reports chest pain, Reports leg edema, Denies palpitations and Reports dyspnea on exertion Resp Denies change in phlegm color, Denies chest congestion, Reports cough, Denies pain on inspiration, Reports dyspnea on exertion and Denies wheezing GI Denies abdominal pain Musc Denies no additional complaints Skin/Breast Reports pruritus and Reports rash Neuro Denies Neuro-related abnormal movements and Denies loss of vision Psych Denies no additional complaints Endo Reports fatigue and Denies palpitations Ovidio/Lymph Denies easy bleeding and Denies lymphadenopathy Aller/Immun Denies lip swelling, Denies tongue swelling and Denies wheezing Physical Exam Vital Signs: Last Vital Signs Pulse 99 04/24/23 12:58 BP 136/74 04/24/23 12:58 Pulse Ox 97 04/24/23 12:58 Oxygen Delivery Method Room Air 04/24/23 12:58 Const General: alert and awake Orientation/consciousness: patient oriented x3 HEENT Head: Yes normocephalic and Yes atraumatic Eyes EOM: EOMs intact bilaterally Direct Ophthalmoscopy: No photophobia Neck Neck: Yes normal visual inspection, Yes full ROM and Yes no lymphadenopathy Chest Chest palpation & inspection: normal inspection of the chest Resp Effort & Inspection: normal respiratory effort and No prolonged expiratory phase Auscultation: clear to auscultation bilaterally and no wheezes Cardio Rate: tachycardic Rhythm: regular rhythm Heart sounds: S1 normal heart sound present and S2 normal heart sound present GI Palpation (GI): Soft to palpation and nontender Auscultation: normal bowel sounds Skin General skin exam: turgor normal Rashes: no rashes Neuro General: patient oriented x3 Extrem General: Yes edema Psych Appearance: grossly normal Affect: normal affect Attitude: cooperative Assessment & Plan Assessment & Plan (1) Severe persistent allergic asthma: Code(s): J45.50 - Severe persistent asthma, uncomplicated (2) Allergic rhinitis: Code(s): J30.9 - Allergic rhinitis, unspecified Qualifiers: Allergic rhinitis seasonality: non-seasonal Allergic rhinitis trigger: fungal spores Qualified Code(s): J30.89 - Other allergic rhinitis (3) Eczema: Code(s): L30.9 - Dermatitis, unspecified Qualifiers: Eczema type: flexural Qualified Code(s): L20.82 - Flexural eczema (4) Dyspnea: Code(s): R06.00 - Dyspnea, unspecified Qualifiers: Dyspnea type: dyspnea on exertion Qualified Code(s): R06.09 - Other forms of dyspnea (5) Lower extremity edema: Code(s): R60.0 - Localized edema Plan continue Breztri 2 puffs twice a day. continue Dupixent every 2 weeks continue nasal therapy along with nasal rinsing short-acting beta agonist as needed continue singular at nighttime continue Pulmonary rehab F/U 6 months Coding Level of Care Code Est Pt Level 4 (78191) Diagnoses Severe persistent allergic asthma J45.50 Non-seasonal allergic rhinitis due to fungal spores J30.89 Allergic rhinitis seasonality: non-seasonal Allergic rhinitis trigger: fungal spores Flexural eczema L20.82 Eczema type: flexural Dyspnea on exertion R06.09 Dyspnea type: dyspnea on exertion Lower extremity edema R60.0 Time Spent (min) 16
== END 2023-04-24 13:21 | disposition home or self-care (01) ==
PROVIDERS: PCP Physician Assistant; Visit Provider Hospitalist
DX: J45.50 Severe persistent asthma, uncomplicated (principal); J30.89 Other allergic rhinitis; L20.82 Flexural eczema; R06.09 Other forms of dyspnea; R60.0 Localized edema
CPT/HCPCS: 99214

== ENCOUNTER → 2023-04-24 12:56 | Outpatient (BNVA) | payer BC, SELFPAY | PROVIDERS: PCP Physician Assistant; Visit Provider Hospitalist | DX: B94.8 Sequelae of other specified infectious and parasitic diseases (principal); J45.909 Unspecified asthma, uncomplicated ==

== ENCOUNTER 2023-06-26 11:30 | Outpatient (RCR) | payer BC, SELFPAY ==
[2023-02-19 10:13] VITALS: BP 160/62; PULSE 73
--- NOTE | 2023-02-19 12:44 | MHC.PR.IN ---
[address] [phone] F: [phone] Pulmonary Rehabilitation Individual Treatment Plan Samina Rojas is a 58 year old (F) who was referred to the Pulmonary Rehabilitation program by Isiah Montemayor. This patient who has a primary diagnosis of Post Covid/asthma will begin pulmonary rehabilitation with monitored exercise and education to optimize both physical and social performance, autonomy, increase strength and endurance, and control dypsnea. The following information was gathered from the patient: Smoking History Current smoking status: Never Smoked Years smoked: Last time smoked: Quit Date: Assistance with quitting needed: Past Medical History Medical History: Asthma Pneumonia Bronchitis Surgeries: Past Pulmonary Hospitalizations # of hospitalizations in the past year: no # of ER vists due to breathing troubles in the past year: no Current Pulmonary Medications Albuterol inhaler budesonide neb prn xopenex nb prn breztri 2 puff 2X daily Dupixent 300 levothroxine omeprozale 20mg cetirizine montelucast rosuvastatin daily Allergy History Allergies: cephalexin, chlorhexidine, ibuprofen, latex, seasonal Current Oxygen Use Supplemental Oxygen Device Used: Liter flow: How often: Pulmonary History Cough: Yes: only with bronchitis Sputum: Yes: green Sleep device: No Other pulmonary devices: Peak flow meter: No Nebulizer: Yes Suction: Ventilator: Secretion clearance: PEP: Influenza vaccine: Yes Pneumonia vaccine: Yes Patient Questionaire Scores MRC Dyspnea Scale (mRC): 3 CAT Score: PHQ-9 Score: 1 Pulmonary Function Test and Vital Signs Pulmonary Function Test Date of PFT 12/26/2022 FVC Actual 3.25% FVC Predicted 3.43% FEV1 Actual 2.65% FEV1 Predicted 2.65% FEV1/FVC Actual 82% FEV1/FVC Predicted 78% DLCO 20.51 Vital Signs Heart Rate 73 Blood Pressure 160/62 SpO2 96% Respiratory Rate 18 Shallow Six Minute Walk Test Supplemental Oxygen O2 L/min: RA FiO2: Resting Vitals SpO2: 96% BP: 160/62mmHg HR: 73 bpm Total Distance 1180 Number/ Time of Rests (sec) 0 0 APOLLO 5 METS 2.6 SpO2 95 HR (bpm) 122 MPH 2.08 Meters/Minute 56 Post-walk Vitals SpO2: 97 BP: 142/68 HR: 101 Performance Observations Pt walked unassisted, at a moderate pace for 6 minutes on room air. Pulmonary Rehabilitation Plan Topic Problem Goal Plan Comment Education Knowledge deficit of disease self management strategies Ineffective control of dyspnea Verbalize adequate disease self-management skills Effective control of dyspnea Disease overview Exacerbation prevention and management Home exercise program Respiratory medication Education initiated and ongoing. Pt educated lung disease and normal lung function. Reviewed PFT with patient. Hypoxia N/A, no s/s of hypoxemia SpO2 >90 Monitor oxygen saturation with rest and exercise Pt monitored during 6 minute walk and exercise session. Pt does not require o2 with exertion. Psychosocial N/A, PHQ-9 score <5 Pt states she does not feel anxiety or depression at this time. Will revisit throughout program. Activities of Daily Living Impaired ADL management Fear of severe dyspnea ADL management and control of dyspnea ADL performance with pacing and pursed lip breathing Educate on pursed lip breathing and pacing with stairs and activity Initiated and ongoing. pt educated on pursed lip breathing/diaphragmatic breathing techniques. Nutrition & Weight Management Obese Lose weight during program Prevent further weight gain Education classes Education re ongoing weight monitoring Nutrition consult Pt requests nutrition consult Pt would like to focus on exercise and endurance at this time. If weight loss happens during program, she will be happy, but that is not her main focus at this time. Discussed the benefits of weight loss and breathing better. Tobacco Managment NA Pt has never smoked. Medication N/A, pt reports compliance w/ prescribed medications Adherence to prescribed medications Importance of medication compliance Medications purpose Medication schedule Medication side-effects Prescribed medications Pt states she takes medication as prescribed. Education initiated and ongoing for proper use, techniques, cleaning, and side effects. Inhaled Medication Purpose, side effects and technique needs review Correct technique/timing and care of inhaled medications Demo of MDI with spacer device MDI with spacer device Spacer teaching/cleaning reviewed and continue. Secretion Management N/A, pt able to self manage secretions Pt able to clear secretions. Education initiated on moncada cough Exercise & Fitness Decreased strength & endurance Knowledge deficit of exercise guidelines & safety No regular exercise Pulmonary Rehab 2-3x/week Weight or resistance training 2-3x/week Aerobic Exercise: 30-60mins x 9 weeks Review benefits & core components of exercise program Review how to measure and monitor dyspnea level Review exercise safety guidelines Review frequency and duration of exercise Review exercise intensity APOLLO RPD 3-4/10 Review home exercise guidelines 6 min walk RPD 4 Mets 2.36 Recumbent bike L1.0 RPD 1 Mets 1.4 Nustep L1.0/ RPD 3 Mets 2.3 UBE L1.0 RPD 1.6 Mets 1.6 Diabetes Management Does patient have DM?: No Diabetes Type: Current Blood Glucose Level: Current A1C Level: Self Check: Pt is not a diabetic Patient's Goals and Concerns I want to be able to keep up with my grand kids. I want to be able to walk, stamina back. I want to start doing things that I have been missing because I can't catch my breath. . 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 The treatment plan and goals support the patient's needs and abilities, and thereby recommend that the exercise plan be completed as documented. Special precautions or modifications to the treatment plan include:
[2023-02-25 12:27] VITALS: BP 124/82; BP 154/78
[2023-02-27 13:34] VITALS: BP 148/62; BP 152/64
[2023-03-04 14:26] VITALS: BP 142/82
[2023-03-06 13:46] VITALS: BP 128/64; BP 136/74
[2023-03-11 12:39] VITALS: BP 118/70; BP 136/80
[2023-03-13 11:30] VITALS: BP 124/62; BP 132/78
[2023-03-18 14:22] VITALS: BP 130/64; BP 144/64
[2023-03-20 14:51] VITALS: BP 108/62; BP 126/72
--- NOTE | 2023-03-21 08:04 | MHC.PR.RE ---
[address] [phone] F: [phone] Pulmonary Rehabilitation Reassessment Samina Rojas is a 58 year old (F) who was referred to the Pulmonary Rehabilitation program by Isiah Montemayor. This patient who has a primary diagnosis of Post Covid/asthma has completed 8 sessions of the pulmonary rehabilitation program thus far with monitored exercise and education to optimize both physical and social performance, autonomy, increase strength and endurance, and control dypsnea. They were evaluated on 03/21/23. Reassessment Type: 30-day reassessment Topic Education/ Progress Progress Comments Education Demonstrates disease self-management strategies Using medications as directed Samina is making progress with ongoing education in disease management, including diaphragmatic breathing and pursed lip breathing techniques. She is actively engaged in learning about her condition, showing commitment to medication adherence and lifestyle modifications. We will continue to monitor and adjust their treatment plan as needed Hypoxia Current oxygen Use: RA Met. Patient is not on home o2 at this time. Psychosocial PHQ-9 Score: 1 Met. Activities of Daily Living Management of ADL with Control of Dyspnea Appropriate Stair Climbing Progressing Samina is demonstrating progression with activities and ADLs as a result of her participation in pulmonary rehab. She states that the techniques and exercises introduced during sessions have contributed significantly to this improvement. Nutrition & Weight Management Current weight: 220 BMI: Weight change: Weight Loss Progressing Samina has been steadily progressing towards her weight goal, with ongoing education on Rate my Plate. She is showing improvement to incorporating the principles of Rate my Plate into her daily life. Monitoring and further guidance will continue to support her in achieving her weight goal Tobacco Stages of Change: Tobacco Use: Cigerettes/Day: Any nicotine replacement: Any cessation medication: Smoking quit date: Smokeless tobacco use and amount: Met. Patient is a non smoker Medication Met, taking 100% of time Albuterol MDI levothroxine omeprozale 20mg citerazine montelucast ricuvistatin daily Samina has demonstrated adherence to her prescribed medications, maintaining a 100% compliance rate Inhaled Medication Patient verbalizes correct technique of: MDI: Yes DPI: Yes SMI: Yes NEBULIZER: Samina has received education on the proper use of respiratory medications, spacer use, and she is now consistently demonstrating correct inhaler technique and medication administration. Additionally, she exhibits a strong understanding of medication-related cleaning routines and has been educated on recognizing and reporting any potential side effects. Secretion Management Patient provides adequate return demonstration of: Controlled cough: Yes Marmolejo cough: Acapella/ PEP Device: CPT: Sputum management: Samina has been educated on marmolejo cough and deep breathing techniques, and progressing on implementing these methods daily. She has been instructed to engage in daily practice of 10-15 minutes, and when experiences episodes of SOB. Exercise & Fitness Aerobic Exercise Frequency: 2-3 X weekly Target heart range: Heart rate range: 82-110 SpO2 Range: >92% APOLLO RPD: 3-4 Time (minutes): 55 O2 use with exercise: RA Current HEP: 5-10 minute warm up/ therabands/gentle stretches Treadmill 2-3X weekly/15 min 2.45 Mets Recumbent bike 2-3X weekly 6 minutes 1.8 mets Free weights 3X weekly 8 exercises 3 sets of 10 15 minutes 4lbs. 5-10 minute cool down with gentle stretches. Samina has been consistently progressing in her exercise program during pulmonary rehab, consistently achieving higher time or METs each week. 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 The treatment plan and goals support the patient's needs and abilities, and thereby recommend that the exercise plan be completed as documented. Special precautions or modifications to the treatment plan include:
--- NOTE | 2023-04-23 07:46 | MHC.PR.RE ---
[address] [phone] F: [phone] Pulmonary Rehabilitation Reassessment Samina Rojas is a 58 year old (F) who was referred to the Pulmonary Rehabilitation program by Isiah Montemayor. This patient who has a primary diagnosis of Post Covid/asthma has completed 14 sessions of the pulmonary rehabilitation program thus far with monitored exercise and education to optimize both physical and social performance, autonomy, increase strength and endurance, and control dypsnea. They were evaluated on 04/23/23. Reassessment Type: 60-day reassessment Topic Education/ Progress Progress Comments Education Demonstrates disease self-management strategies Using medications as directed Samina is making progress with ongoing education in disease management, including diaphragmatic breathing and pursed lip breathing techniques. She is actively engaged in learning about her condition, showing commitment to medication adherence and lifestyle modifications. We will continue to monitor and adjust their treatment plan as needed Hypoxia Current oxygen Use: RA Met. Patient is not on home o2 at this time. Psychosocial PHQ-9 Score: 1 Met. Activities of Daily Living Management of ADL with Control of Dyspnea Appropriate Stair Climbing Progressing Samina is demonstrating progression with activities and ADLs as a result of her participation in pulmonary rehab. The techniques and exercises introduced during sessions have contributed significantly to this improvement. Nutrition & Weight Management Current weight: 220 BMI: Weight change: Weight Loss Progressing Samina has been steadily progressing towards her weight goal, with ongoing education on Rate my Plate. She is showing improvement to incorporating the principles of Rate my Plate into her daily life. Monitoring and further guidance will continue to support her in achieving her weight goal Tobacco Stages of Change: Tobacco Use: Cigerettes/Day: Any nicotine replacement: Any cessation medication: Smoking quit date: Smokeless tobacco use and amount: Met. Patient is a non smoker Medication Met, taking 100% of time Albuterol MDI levothroxine omeprozale 20mg citerazine montelucast ricuvistatin daily Samina has demonstrated adherence to her prescribed medications, maintaining a 100% compliance rate Inhaled Medication Patient verbalizes correct technique of: MDI: Yes DPI: Yes SMI: Yes NEBULIZER: Samina has received education on the proper use of respiratory medications, spacer use, and she is now consistently demonstrating correct inhaler technique and medication administration. Additionally, she exhibits a strong understanding of medication-related cleaning routines and has been educated on recognizing and reporting any potential side effects. Secretion Management Patient provides adequate return demonstration of: Controlled cough: Yes Marmolejo cough: Acapella/ PEP Device: CPT: Sputum management: Samina has been educated on marmolejo cough and deep breathing techniques, and progressing on implementing these methods daily. She has been instructed to engage in daily practice of 10-15 minutes, and when experiences episodes of SOB. Exercise & Fitness Aerobic Exercise Frequency: 2-3 X weekly Target heart range: Heart rate range: 82-110 SpO2 Range: >92% APOLLO RPD: 3-4 Time (minutes): 55 O2 use with exercise: RA Current HEP: 5-10 minute warm up/ therabands/gentle stretches Treadmill 2-3X weekly/15 min 2.45 Mets Recumbent bike 2-3X weekly 6 minutes 1.8 mets Free weights 3X weekly 8 exercises 3 sets of 10 15 minutes 4lbs. 5-10 minute cool down with gentle stretches. Samina has been consistently progressing in their exercise program during pulmonary rehab, consistently achieving higher time or METs each week. Occupational Health Nurse Supervisor Review I have reviewed the outcome re-assessment and treatment plan. The treatment plan and goals support the patient's needs and abilities, and thereby recommend that the exercise plan be completed as documented. Special precautions or modifications to the treatment plan include:
--- NOTE | 2023-05-19 07:18 | MHC.PR.RE ---
[address] [phone] F: [phone] Pulmonary Rehabilitation Reassessment Samina Rojas is a 58 year old (F) who was referred to the Pulmonary Rehabilitation program by Isiah Montemayor. This patient who has a primary diagnosis of Post Covid/asthma has completed 24 sessions of the pulmonary rehabilitation program thus far with monitored exercise and education to optimize both physical and social performance, autonomy, increase strength and endurance, and control dypsnea. They were evaluated on 05/19/23. Reassessment Type: 90-day reassessment Topic Education/ Progress Progress Comments Education Demonstrates disease self-management strategies Using medications as directed Samina is making progress with ongoing education in disease management, including diaphragmatic breathing and pursed lip breathing techniques. She is actively engaged in learning about her condition, showing commitment to medication adherence and lifestyle modifications. We will continue to monitor and adjust their treatment plan as needed Hypoxia Current oxygen Use: RA Met. Patient is not on home o2 at this time. Psychosocial PHQ-9 Score: 1 Met. Activities of Daily Living Management of ADL with Control of Dyspnea Appropriate Stair Climbing Progressing Samina is demonstrating progression with activities and ADLs as a result of her participation in pulmonary rehab. The techniques and exercises introduced during sessions have contributed significantly to this improvement. Nutrition & Weight Management Current weight: 220 BMI: Weight change: Weight Loss Progressing Samina has been steadily progressing towards her weight goal, with ongoing education on Rate my Plate. She is showing improvement to incorporating the principles of Rate my Plate into her daily life. Monitoring and further guidance will continue to support her in achieving her weight goal Tobacco Stages of Change: Tobacco Use: Cigerettes/Day: Any nicotine replacement: Any cessation medication: Smoking quit date: Smokeless tobacco use and amount: Met. Patient is a non smoker Medication Met, taking 100% of time Albuterol MDI levothroxine omeprozale 20mg citerazine montelucast ricuvistatin daily Samina has demonstrated adherence to her prescribed medications, maintaining a 100% compliance rate Inhaled Medication Patient verbalizes correct technique of: MDI: Yes DPI: Yes SMI: Yes NEBULIZER: Samina has received education on the proper use of respiratory medications, spacer use, and she is now consistently demonstrating correct inhaler technique and medication administration. Additionally, she exhibits a strong understanding of medication-related cleaning routines and has been educated on recognizing and reporting any potential side effects. Secretion Management Patient provides adequate return demonstration of: Controlled cough: Yes Marmolejo cough: Acapella/ PEP Device: CPT: Sputum management: Samina has been educated on marmolejo cough and deep breathing techniques, and progressing on implementing these methods daily. She has been instructed to engage in daily practice of 10-15 minutes, and when experiences episodes of SOB. Exercise & Fitness Aerobic Exercise Frequency: 2-3 X weekly Target heart range: Heart rate range: 82-110 SpO2 Range: >92% APOLLO RPD: 3-4 Time (minutes): 55 O2 use with exercise: RA Current HEP: 5-10 minute warm up/ therabands/gentle stretches Treadmill 2-3X weekly/15 min 2.45 Mets Recumbent bike 2-3X weekly 6 minutes 1.8 mets Free weights 3X weekly 8 exercises 3 sets of 10 15 minutes 4lbs. 5-10 minute cool down with gentle stretches. Samina has been consistently progressing in their exercise program during pulmonary rehab, consistently achieving higher time or METs each week. Case Operator Review I have reviewed the outcome re-assessment and treatment plan. The treatment plan and goals support the patient's needs and abilities, and thereby recommend that the exercise plan be completed as documented. Special precautions or modifications to the treatment plan include:
--- NOTE | 2023-08-15 07:28 | MHC.PR.DC ---
[address] [phone] F: [phone] Pulmonary Rehabilitation Discharge Samina Rojas is a 58 year old (F) who was referred to the Pulmonary Rehabilitation program by Isiah Montemayor. This patient who has a primary diagnosis of post covid has completed 36 sessions of the pulmonary rehabilitation program with monitored exercise and education to optimize both physical and social performance, autonomy, increase strength and endurance, and control dypsnea. They were evaluated on 05/19/23. Discharge summary and tests are below. Initial MRC Score: 3 Discharge MRC Score: 2 Six Minute Walk Test Initial 6MWT Discharge 6MWT Supplemental Oxygen O2 L/min: RA FiO2: O2 L/min: FiO2: room air Resting Vitals SpO2: 96% BP: 160/62mmHg HR: 73 bpm SpO2: 96% BP: 132mmHg HR: 68 bpm Total Distance (ft) 1180 1200 Number/ Time of Rests (sec) 0 0 0 APOLLO 5 4 Walk Vitals SpO2: 95 HR: 122 SpO2: 96 HR: 131 Post-Walk Vitals SpO2: 97 BP: 142/68 HR: 101 SpO2: 98 BP: 132/68 HR: 103 Performance Observations Pt walked unassisted, at a moderate pace for 6 minutes on room air. pt walked unassisted at a moderate pace for 6 minutes. no breaks. patient denies fatigue/dizziness Exercise Assessment on free weights: Pre-exercise Post-exercise SpO2 Heart Rate APOLLO METS Exercise Assessment on recumbant elliptical: Pre-exercise Post-exercise SpO2 Heart Rate APOLLO METS Exercise Assessment on treadmill: Pre-exercise Post-exercise SpO2 Heart Rate APOLLO METS Topic Education/Progress Progress Comments Education Demonstrates disease self-management strategies Using medications as directed Mobilizes secretions successfully Demonstrates strategies for anxiety and depression management pt participated in small group education sessions Hypoxia Current oxygen Use: pt does not use supplemental o2 Met. Patient is not on home o2 at this time. Psychosocial PHQ-9 Score: 1 Met. Activities of Daily Living Management of ADL with Control of Dyspnea Appropriate Stair Climbing Candie Haas is demonstrating progression with activities and ADLs as a result of her participation in pulmonary rehab. The techniques and exercises introduced during sessions have contributed significantly to this improvement. Nutrition and Weight Managment Current weight: 220 BMI: Weight change: Weight Stable Candie Haas has been steadily progressing towards her weight goal, with ongoing education on Rate my Plate. She is showing improvement to incorporating the principles of Rate my Plate into her daily life. Monitoring and further guidance will continue to support her in achieving her weight goal Tobacco Stages of Change: Tobacco Use: Cigerettes/Day: Any nicotine replacement: Any cessation medication: Smoking quit date: Smokeless tobacco use and amount: Pt is a non smoker Medications Met, taking 100% of time Samina has demonstrated adherence to her prescribed medications, maintaining a 100% compliance rate Inhaled Medications Patient verbalizes correct technique of: MDI: Yes DPI: N/A SMI: N/A NEBULIZER: N/A pt uses medication as prescribed Secretion Management Patient provides adequate return demonstration of: Controlled cough: Yes Marmolejo cough: Acapella/ PEP Device: Yes CPT: N/A Sputum management: pt understands the importance of airway clearance Exercise and Fitness Aerobic Exercise Frequency: 2-3 X weekly Target heart range: Heart rate range: 82-110 SpO2 Range: >92% APOLLO RPD: 3-4 Time (minutes): 55 O2 use with exercise: RA Current HEP: 5-10 minute warm up/ therabands/gentle stretches Treadmill 2-3X weekly/15 min 2.45 Mets Recumbent bike 2-3X weekly 6 minutes 1.8 mets Free weights 3X weekly 8 exercises 3 sets of 10 15 minutes 4lbs. 5-10 minute cool down with gentle stretches. Samina has been consistently progressing in their exercise program during pulmonary rehab, consistently achieving higher time or METs each week. Discharge Assessment: Pt successfully completed 36 sessions of pulmonary rehab. 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 Discharge Reason: completed 36 sessions of pulmonary rehab Discharge Recommendation: :
== END 2023-08-15 07:29 | disposition home or self-care (01) ==
LOC: HO.PR 11:30
PROVIDERS: Visit Provider Hospitalist
DX: U09.9 Post COVID-19 condition, unspecified (principal); J45.40 Moderate persistent asthma, uncomplicated
CPT/HCPCS: 94625; G0237; G0239

== ENCOUNTER 2023-07-08 07:28 | Outpatient (REF) | payer BC, SELFPAY ==
[2023-07-08 08:27] LABS: Hematocrit 39.1 % (37.0-47.0); Hemoglobin 12.7 g/dl (12.0-16.0); Mean Corpuscular HGB Conc 32.5 g/dl (31.0-35.0); Mean Corpuscular Hemoglobin 27.9 pg (27.0-33.0); Mean Corpuscular Volume 85.7 fL (80.0-98.0); Mean Platelet Volume 9.7 fL (9.4-12.3); Platelet Count 294 X10*3/uL (160-400); Red Blood Count 4.56 X10*6/uL (4.20-5.50); Red Cell Distribution Width 15.9 % (11.0-16.0); White Blood Count 6.4 X10*3/uL (4.8-10.8)
[2023-07-08 08:59] LABS: Alanine Aminotransferase 29 U/L (0-31); Albumin Level 4.4 g/dL (3.5-5.0); Alkaline Phosphatase 69 U/L (39-117); Anion Gap 14 (12-20); Aspartate Amino Transferase 20 U/L (5-31); Bilirubin Total 0.6 mg/dL (0.0-1.0); Blood Urea Nitrogen 10 mg/dL (9-16); Calcium 9.9 mg/dL (8.4-10.2); Carbon Dioxide 25 mmol/L (22-29); Chloride 106 mmol/L (96-108); Cholesterol 215 mg/dL (<200); Estimated Glomerular Filt Rate > 60; Glucose Fasting 105 mg/dL (60-99); HDL Cholesterol 74 mg/dL (>40); Iron 146 mcg/dL (30-160); LDL Cholesterol Calculated 112 mg/dL (<100); Percent Iron Saturation 39 % (15-50); Potassium 3.7 mmol/L (3.3-5.1); Sodium 141 mmol/L (135-145); Total Iron Binding Capacity 373 mcg/dL (228-428); Total Protein 7.5 g/dL (6.5-8.0); Triglycerides 145 mg/dL (<150); Unsaturated Iron Binding 227 ug/dL
[2023-07-08 09:23] LABS: TSH reflex Free T4 3.53 uIU/mL (0.32-4.0)
== END 2023-07-08 07:29 | disposition home or self-care (01) ==
LOC: HO.LAB 07:28
PROVIDERS: PCP Physician Assistant; Visit Provider Physician Assistant
DX: D50.9 Iron deficiency anemia, unspecified (principal); E03.9 Hypothyroidism, unspecified; E78.2 Mixed hyperlipidemia; I10 Essential (primary) hypertension
CPT/HCPCS: 36415; 80053; 80061; 83540; 84443; 85027

== ENCOUNTER 2023-07-09 07:48 | Outpatient (AMB) | payer BC, SELFPAY ==
[2023-07-09 07:52] VITALS: BP 142/88; PULSE 78; O2SAT 98
--- NOTE | 2023-07-09 07:52 | A.OFFPC_ITS ---
Vital Signs 07/09/23 07:52 Height 5 ft 5 in BMI Reason not done Patient refused/unable BP 142/88 H Blood Pressure Location Lt brachial Position Sitting Pulse 78 Pulse Source Pulse Oximeter Pulse Oximetry (%) 98 Oxygen Delivery Method Room Air Intake Visit Reasons: f/u Hypothyroid / weight check Allergies cephalexin [From KEFLEX] Allergy (Intermediate, Verified 07/09/23 08:02) RASH chlorhexidine [CHLORHEXIDINE] Allergy (Intermediate, Verified 07/09/23 08:02) ITCHY,RASH ibuprofen [IBUPROFEN] Allergy (Intermediate, Verified 07/09/23 08:02) RASH- PER H&P latex [LATEX] Allergy (Intermediate, Verified 07/09/23 08:02) RASH Medication List - Last Reconciled 07/09/23 by Jose Oliveira PA-C albuterol sulfate 90 mcg/actuation 2 inhalations PO Q4H PRN budesonide 0.5 mg (2 mL) inhalation BID 30 days [id number] 160-9-4.8 mcg/actuation (Breztri Aerosphere) 2 inhalations inhalation BID 30 days cetirizine (All Day Allergy (cetirizine)) 10 mg PO DAILY PRN Dupixent Pen (dupilumab) 300 mg (2 mL) subcut Q2W NS epinephrine (EpiPen 2-Kali) 0.3 mg (0.3 mL) IM Q10M PRN 30 days fluticasone propionate 50 mcg/actuation 1 spray intranasal DAILY 30 days L.acid,casei,plant,saliv-B.ani 10 billion cell (2 billion ea) 1 cap PO DAILY levalbuterol HCl (Xopenex) 1.25 mg (3 mL) inhalation Q6H PRN 30 days levothyroxine 88 mcg PO DAILY 90 days montelukast 10 mg PO DAILY 90 days nebulizers As directed omeprazole 20 mg PO DAILY 3 months rosuvastatin 5 mg PO DAILY 90 days semaglutide (weight loss) (Wegovy) 0.25 mg (0.5 mL) subcut QWEEK 4 weeks triamcinolone acetonide 0.1% topical Tobacco use date assessed: 07/09/23 Dental Screening Dental Screen Date: 07/09/23 Did you have a dental visit in the last 12 months?: Yes Did you have a dental problem in the last 6 months where you did not have access to dental care?: No Was dental information given to patient?: Patient has dentist HPI f/u Hypothyroid / weight check HPI Details Patient is a 58-year-old female here today for a follow-up visit.? Patient's past medical history significant for moderate persistent asthma, hypothyroidism, eczema, allergic rhinitis, obesity. Concern--> ports recently having some sinus ear pain and a mild cough. She is concerned she is developing bronchitis. She usually needs p.o. steroids and bio tics .. Neuropathy lower extremities: Most recent EMG testing showing moderate to severe neuropathy worsening left lower extremity. Not clear if this is related to previous surgery verses lumbar spine disease. She does have an abnormal gait to which she wears orthotics to help stabilize her gait. She has started in pulmonary rehab for her asthma and plans to be more physically active. She is discouraged that she has not lost much weight and is interested in injectable therapy to help her lose weight. She has followed up with Orthopedics in [place] whom recommend cortisone injections. .. Moderate persistent asthma/ Allergies: (? has a previous history of severe COVID infection leading? to 3 months out of work). 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 steroids.? Has been started on budesonide inhaled nebulizer treatments.? She is though feels as effective as she would like.. She continues to have shortness of breath on exertion She is receiving allergy injections and Dupixent which has been somewhat effective. Recently had allergy injections and has localized reactions. We did discuss the possibility of doing another cardiac stress test though at this time still considering. .. Hypothyroidism: Most recent TSH is stable. Continues on levothyroxine 88 mcg which has been effective. .. Hyperlipidemia:? Patient does have a history of elevated cholesterol, she does report family history of early heart attacks and .? Most recent fasting lipid panel showing borderline high total cholesterol. She does report dietary indiscretion over the holidays. Labs reviewed and noted impaired glucose metabolism. 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 Brother No problems noted. Brother No problems noted. Sister No problems noted. Sister No problems noted. Sister No problems noted. Son No problems noted. Son No problems noted. Son No problems noted. Daughter No problems noted. Social History Household Members: Family Household Members Other:: spouse/son Housing: House Alcohol intake: current Alcohol intake frequency: a few times a month Patient Tobacco Use Status: Never used Tobacco e-Cigarette/Vaping Use: Never Used Second Hand Smoke Exposure: No service: No Current occupational status: employed Current occupational exposures/hazards: No Cognitive needs: No Hearing needs: No Vision needs: No Questionnaire PHQ-9 Over the last 2 weeks, how often have you been bothered by any of the following problems? 1. Little interest or pleasure in doing things: not at all 2. Feeling down, depressed, or hopeless: not at all 3. Trouble falling or staying asleep, or sleeping too much: not at all 4. Feeling tired or having little energy: not at all 5. Poor appetite or overeating: not at all 6. Feeling bad about yourself - or that you are a failure or have let yourself or your family down: not at all 7. Trouble concentrating on things, such as reading the newspaper or watching television: not at all 8. Moving or speaking so slowly that other people could have noticed. Or the opposite - being so fidgety or restless that you have been moving around a lot more than usual: not at all 9. Thoughts that you would be better off or of hurting yourself in some way: not at all Total score: 0 Depression Screening Interpretation: Negative Depression Screening Done: Yes 45313 - PHQ-9 Billing: Yes Source: Developed by Drs. Ruslan Crespo, Shayna Otero, Bart Butler and colleagues, with an educational jess from [employer]. Thrive Questionnaire Date Thrive assessed: 07/09/23 I am a: Patient What is your living situation today?: I have a steady place to live Within the past 12 months, did the food you bought not last and you didn't have the money to get more?: Never true Within the past 12 months, did you worry whether your food would run out before you got money to buy more?: Never true Do you have trouble paying for medicines?: No Do you have trouble getting transportation to medical appointments?: No Do you have trouble paying your heating and electricity bill?: No Do you have trouble taking care of your child, family member or friend?: No Do you have trouble with day-to-day activities such as bathing, preparing meals, shopping, managing finances, etc.?: No Are you currently unemployed and looking for a job?: No Are you interested in more education?: No Currently or been in a relationship where the following occur: no concerns repo rted AUDIT C Alcohol Use Questionnaire (AUDIT-C) 1. How often do you have a drink containing alcohol?: 2-3 times a week 2. How many drinks containing alcohol do you have on a typical day when you are drinking?: 1 or 2 3. How often do you have six or more drinks on one occasion?: Never Total Score: 3 MARLYS-7 AMB Questionnaire MARLYS-7 Date MARLYS - 7 assessed: 07/09/23 Feeling nervous, anxious, or on edge: 0 = Not at all Not being able to stop or control worryin = Not at all Worrying too much about different things: 0 = Not at all Trouble relaxin = Not at all Being so restless that it is hard to sit still: 0 = Not at all Becoming easily annoyed or irritable: 0 = Not at all Feeling afraid as if something awful might happen: 0 = Not at all Total MARLYS-7 score (0-4 normal; 5-9 mild; 10-14 moderate; 15-21 severe): 0 Source: Developed by Drs. Ruslan Crespo, Shayna Otero, Bart Butler and colleagues, with an educational jess from [employer]. MARLYS-7 Assessment Billing MARLYS-7 Assessment Tool: MARLYS-7 Assessment 14507 Review of Systems Const Denies headache(s) Eyes Denies loss of vision ENT Denies vertigo, Denies dizziness, Denies headache(s) and Denies sore throat Card Denies chest pain, Denies leg edema and Denies lightheadedness Resp Denies cough, Denies hemoptysis and Denies wheezing GI Denies abdominal pain, Denies melena, Denies constipation, Denies diarrhea and Denies vomiting Denies urinary frequency, Denies dysuria and Denies urinary urgency Musc Denies arthralgias, Denies joint swelling, Denies numbness and Denies tingling Neuro Denies Abnormal speech present, Denies behavioral changes, Denies vertigo, Denies dizziness, Denies headache(s), Denies loss of vision, Denies memory loss, Denies numbness and Denies tingling Psych Denies anxiety, Denies behavioral changes, Denies depression, Denies memory loss and Denies panic attacks Ovidio/Lymph Denies easy bleeding and Denies easy bruising Aller/Immun Denies wheezing Physical exam (Primary Care) Vital Signs: Last Vital Signs Pulse 78 07/09/23 07:52 BP 142/88 H 07/09/23 07:52 Pulse Ox 98 07/09/23 07:52 Oxygen Delivery Method Room Air 07/09/23 07:52 Tobacco/Smoking Status: Tobacco use Status Tobacco use date assessed 07/09/23 07/09/23 07:57 Patient Tobacco Use Status Never used Tobacco 07/09/23 07:57 e-Cigarette/Vaping Use Never Used 07/09/23 07:57 PHQ-9: PHQ-9 Score PHQ-9: Total score 0 07/09/23 07:57 Depression Screening Interpretation: Negative Thrive Assessment: Date of Thrive Assessment Date Thrive assessed 07/09/23 07/09/23 07:57 Currently or been in a relationship where the following occur: no concerns reported Const General: healthy appearing, no acute distress, alert and awake Nutritional Appearance: well nourished Orientation/consciousness: oriented to person, oriented to place and oriented to time HENMT Ears: TM's normal bilaterally General nose exam: Normal nasal mucous membranes and turbinates present Eyes Conjunctivae: conjunctivae normal Sclerae: sclerae normal Pupils: Equal, round and reactive pupils present Neck Neck: Yes no lymphadenopathy and Yes no JVD Thyroid: Thyroid normal Carotids: no bruits Resp Effort & Inspection: normal respiratory effort and not tachypneic Auscultation: no crackles, no rales, no rhonchi and no wheezes Cardio Rate: regular rate Rhythm: regular rhythm Heart sounds: no murmurs and normal S1 and S2 GI Palpation (GI): Soft to palpation, nontender, no hepatomegaly and no splenomegaly Auscultation: normal bowel sounds Skin General skin exam: no rashes or lesions noted and dry skin Neuro General: oriented to person, oriented to place and oriented to time Cranial nerves: Yes Equal, round and reactive pupils present Speech: No Abnormal speech present Gait exam (Neuro): Normal gait present Motor exam (neuro): no tremor noted Extrem Right upper extremity: full ROM Left upper extremity: full ROM Right lower extremity: full ROM; no edema Left lower extremity: full ROM; no edema Psych Mental Status: mental status grossly normal Speech and movement: Normal speech and movement present Affect: normal affect Attitude: cooperative Thought process: Normal thought process present Assessment and Plan Assessment & Plan (1) Hyperlipidemia: Code(s): E78.5 - Hyperlipidemia, unspecified Qualifiers: Hyperlipidemia type: mixed hyperlipidemia Qualified Code(s): E78.2 - Mixed hyperlipidemia Plan: Most recent fasting lipid panel showing slight elevations in her total cholesterol and LDL. She does report dietary indiscretion over the holidays. W ill continue current statin dose and work on lifestyle/dietary modifications. Will continue on statin therapy with goal LDL to remain below 130 (2) Paresthesia of lower extremity: Code(s): R20.2 - Paresthesia of skin Plan: Patient reports tired achy/burning lower extremities worse with activity. No swelling or discoloration and lower extremities. EMG showing moderate to severe bilateral lower extremity neuropathy. No clear cause of this at this time. Could be related to previous surgeries and her weight. She was told it was not related to her lumbar disc disease. (3) Gait disturbance: Code(s): R26.9 - Unspecified abnormalities of gait and mobility Plan: Has had a gait disturbance many years now, does report having extensive foot surgeries which attributes to her gait disturbance. She will continue in pulmonary rehab working to be more physically active on the treadmill. (4) Elevated fasting blood sugar: Code(s): R73.01 - Impaired fasting glucose Plan: Have noted elevations in her fasting blood sugars likely secondary to steroid use. Will continue to follow fasting blood sugar and check an A1c to evaluate for diabetes. (5) Essential hypertension: Code(s): I10 - Essential (primary) hypertension Plan: Continues to elevated blood pressure readings here in the office. She reports at a recent blood draw her blood pressure was normal. She will continue to monitor blood pressure at home and report back if blood pressures remain in over 140/90 Will consider antihypertensive medication. (6) Severe persistent allergic asthma: Code(s): J45.50 - Severe persistent asthma, uncomplicated Plan: Continues to follow pulmonology. Continues on maintenance inhaler and rescue inhalers. Also on Dupixent. Unfortunately continues to shortness of breath worse on exertion. Recent PFTs done waiting results Pulmonology Patient has started pulmonary rehab which has been helpful to be more physically active. (7) Obese: Code(s): E66.9 - Obesity, unspecified Qualifiers: Obesity type: due to excess calories Obesity classification: adult class 2 (BMI 35 - 39.9) Serious obesity comorbidity presence: with serious comorbidity Body mass index: BMI 36.0-36.9 Qualified Code(s): E66.01 - Morbid (severe) obesity due to excess calories; Z68.36 - Body mass index [BMI] 36.0- 36.9, adult Plan: Patient does understand her BMI is in obese category will continue trying to be more physically active and adapting to better eating habits to reduce her weight. (8) Bronchitis: Code(s): J40 - Bronchitis, not specified as acute or chronic Plan: Patient believes she is coming down with bronchitis. She will be traveling soon to see her daughter. Would like to have prednisone and antibiotic in case of a decompensation. Orders: Orders Comprehensive [place]. Panel Fast Today E78.2 - Mixed hyperlipidemia Microalbumin, Random (w Creat) Today I10 - Essential (primary) hypertension TSH reflex Free T4 Today E03.9 - Hypothyroidism, unspecified Lipid Panel Today E78.2 - Mixed hyperlipidemia Medications: New azithromycin For 250 mg dose pack: take 500 mg today (day 1), then 250 mg for 4 days (days 2-5) PO 6 tabs 0RF J40 - Bronchitis, not specified as acute or chronic prednisone take 3 tablets x3 days, 2 tablets x3 days, 1 tablet x3 days 10 mg PO DIRECTED 9 days 18 tabs 0RF J40 - Bronchitis, not specified as acute or chronic Discontinued semaglutide (weight loss) (Treva) administer weeks 1 through 4 of therapy Discontinued Reason: Doctor's Order 0.25 mg (0.5 mL) subcut QWEEK 4 weeks 2 mL 0RF E66.01 - Morbid (severe) obesity due to excess calories, Z68.36 - Body mass index [BMI] 36.0-36.9, adult Coding Level of Care Code Est Pt Level 4 (09614) Diagnoses Mixed hyperlipidemia E78.2 Hyperlipidemia type: mixed hyperlipidemia Paresthesia of lower extremity R20.2 Gait disturbance R26.9 Elevated fasting blood sugar R73.01 Essential hypertension I10 Severe persistent allergic asthma J45.50 Class 2 severe obesity due to excess calories with serious comorbidity and body mass index (BMI) of 36.0 to 36.9 in adult E66.01; Z68.36 Obesity type: due to excess calories Obesity classification: adult class 2 (BMI 35 - 39.9) Serious obesity comorbidity presence: with serious comorbidity Body mass index: BMI 36.0-36.9 Bronchitis J40 Additional Codes MARLYS-7 Assessment Billing - MARLYS-7 Assessment Tool: MARLYS-7 Assessment [id number] ([id number])
== END 2023-07-09 08:23 | disposition home or self-care (01) ==
PROVIDERS: PCP Physician Assistant; Visit Provider Physician Assistant
DX: J45.50 Severe persistent asthma, uncomplicated (principal); E66.01 Morbid (severe) obesity due to excess calories; Z68.36 Body mass index [BMI] 36.0-36.9, adult; E78.2 Mixed hyperlipidemia; R20.2 Paresthesia of skin; R26.9 Unspecified abnormalities of gait and mobility; R73.01 Impaired fasting glucose; I10 Essential (primary) hypertension; J40 Bronchitis, not specified as acute or chronic
CPT/HCPCS: 99214

== ENCOUNTER → 2023-08-12 13:51 | Outpatient (REF) | payer BC, SELFPAY ==
--- NOTE | 2023-08-12 13:54 | CA_ITS ---
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 The calculated ejection fraction is 60% by biplane method. - No obvious valvular pathology seen on this study. - There is no evidence of pulmonary hypertension. Findings Procedure Information Contrast agent, definity, is being given per protocol without apparent complications. Left Ventricle Normal left ventricular cavity size. There is mildly increased left ventricular wall thickness. The left ventricular systolic function is normal. The calculated ejection fraction is 60% by biplane method. There is no evidence of regional wall motion abnormalities. Diastolic function is normal for age. Right Ventricle Normal right ventricular cavity size and systolic function. Atria Both atria are normal in size. Aortic Valve There is a normal trileaflet aortic valve. There is no aortic valve stenosis. There is no aortic valve regurgitation. Mitral Valve The mitral valve appears normal. There is no mitral valve regurgitation. There is no mitral valve stenosis. Pulmonic Valve The pulmonic valve is likely normal. Tricuspid Valve Normal tricuspid valve structure. There is trace tricuspid valve regurgitation. There is no evidence of pulmonary hypertension. Great Vessels The asc aorta is normal in size. Venous The inferior vena cava is normal in size and collapses less than 50% with inspiration. Pericardium/Pleural There is no evidence of pericardial effusion. Prior Study Comparison No significant change compared to prior study dated: 04/03/2022. Recommendations, Care & Conclusions No obvious valvular pathology seen on this study. Measurements 2D Linear Measurements IVSd: 1.19 0.6-0.9/0.6-1.0 cm LVIDd: 4.46 3.9-5.3/4.2-5.9 cm LVIDd Index: 2.12 2.4-3.2/2.2-3.1 cm/m2 LVIDs: 3.00 2.0-3.6 cm LVPWd: 1.11 0.7-1.1 cm LA Diam: 3.50 2.7-3.8/3.0-4.0 cm LAIDs Index: 1.67 1.5-2.3 cm/m2 LV Mass: 229.01 67-162/88-224 g LV Mass Index: 109.05 43-95/49-115 g/m2 LVOT Diam: 2.20 3.0+(-)1.3 cm 2D Systolic Function EF 4C: 56.90 >55% EF 2C: 62.00 >55% EF BiP: 60.00 >55% Mitral Valve MV VTI: 0.29 MV Pk Darryl: 1.08 MV Mn Darryl: 0.59 MV Pk Grad: 5.00 MV Mn Grad: 2.00 MV Pk E: 0.75 MV PK A: 0.64 MV Decel Time: 224.00 E/A: 1.20 E'Lateral: 7.29 E'Medial: 7.07 E/E' Med: 10.70 E/E' Lat: 10.30 PHT: 66.00 MVA PHT: 3.33 MVA Continuity: 2.58 Decel [place]: 3.36 Aortic Valve AoV Pk Darryl: 1.41 AoV Mn Darryl: 0.97 AoV VTI: 0.28 AoV Pk Grad: 8.00 Aov Mn Grad: 4.00 YOSELIN Cont.VTI: 2.65 LVOT LVOT Pk Darryl: 0.87 LVOT Mn Darryl: 0.53 LVOT VTI: 0.20 LVOT Pk Grad: 3.00 LVOT Mn Grad: 1.00 LVOT Diam: 2.20 LVOT Area: 3.80 Diastolic Function MV Pk E: 0.75 MV Pk A: 0.64 E/A: 1.20 E'Medial: 7.07 E/E' Med: 10.70 E' Laterial: 7.29 E/E' Lat: 10.30 Right Ventricle TAPSE (mm): 22.80 TVS' Darryl: 13.40 Tricuspid Valve TR Pk Darryl: 2.06 TR Pk Grad: 17.00 RA Press: 8.00 RVSP: 25.00 Great Vessels Aorta Sinus of Valsalva: 3.54 2.0-3.5 cm Ao Asc: 3.50 2.1-3.4 cm Ao Arch: 3.20 Updated in Other Vendor System with Status of Final Zackary Ruiz MD electronically signed on 08/13/2023 6:19:35 AM with status of Final
== END ==
LOC: HO.CARD 13:51
PROVIDERS: PCP Physician Assistant; Visit Provider Hospitalist
DX: I27.20 Pulmonary hypertension, unspecified (principal)
CPT/HCPCS: 93306; Q9957

== ENCOUNTER → 2023-08-12 13:54 | Outpatient (BNV) | payer BC, SELFPAY | PROVIDERS: PCP Physician Assistant; Visit Provider Internal Medicine | DX: I27.20 Pulmonary hypertension, unspecified (principal) | CPT/HCPCS: 93306 ==

== ENCOUNTER → 2023-08-28 07:58 | Outpatient (REF) | payer BC, SELFPAY ==
--- NOTE | ~2023-08-28 | NM_ITS ---
EXERCISE MYOCARDIAL PERFUSION STUDY INDICATION: Coronary disease TECHNIQUE: The patient was brought in for an exercise perfusion study on 08/28/2023. Patient performed exercise as per Hamzah protocol and was injected 35 mCi of sestamibi once target heart rate was achieved. Images were obtained using the SPECT gamma camera interlaced with the gating device. Images were obtained in supine position. Resting perfusion study was performed on 08/29/2023. Patient was administered 35 mCi of sestamibi intravenously at rest. Images were then obtained in supine position. Images were processed with the software and compared side to side in short axis, horizontal long axis and vertical long axis views. Total DLP 124mGy-cm. FINDINGS: Raw images were reviewed. The stress perfusion study showed no significant perfusion abnormality. Both uncorrected as well as CT attenuation corrected images are reviewed. The gated study shows normal LV systolic function with calculated LVEF of 61%. LV cavity is normal in size. The gated study shows normal wall thickening and contraction of segments. Resting study shows no significant perfusion abnormality. Gating at rest reveals normal wall motion with ejection fraction at 67%. The findings are consistent with no clear evidence of any reversible or fixed perfusion defects. NM/NM cardiolite stress test IMPRESSION: 1. Myocardial perfusion imaging study shows probably normal myocardial perfusion. 2. Gated LVEF is 61% during stress and 67% during rest. 3. Transient ischemic dilatation not present. EKG component of the test reported separately.
--- NOTE | 2023-08-28 08:03 | CA_ITS ---
Acquisition Time: 2023-08-28 07:56:25 Total Exercise Time: 00:05:00 Test Indications: Screening for CAD HTN Medications: SEE H Protocol: JESSICA Max HR: 148 BPM 92% of Pred: 160 BPM Max BP: 210/088 mmHG Max Work Load: 4.6 METS Exercise stress test 5 min of Jessica protocol (stage 1 held, reduce incline due to dyspnea) achieving 91% MPHR, with mild to mdoerate SOB ,no chest discomfort, with isolated PVCs, resting BP 160/90, 158/88, max BP 210/88, with brisk HR response, without EKG changes. Breathing returned to normal with rest. End BP 122/88. Nuclear images pending. Test reviewed with Dr. Ruiz. Referred By: Jose Oliveira Overread By: Tonia Fitzgerald
== END ==
LOC: HO.CARD 07:58
PROVIDERS: PCP Physician Assistant; Visit Provider Physician Assistant
DX: R06.00 Dyspnea, unspecified (principal); I10 Essential (primary) hypertension
CPT/HCPCS: 78452; 93017; A9500

== ENCOUNTER → 2023-08-28 08:03 | Outpatient (BNV) | payer BC, SELFPAY | PROVIDERS: PCP Physician Assistant; Visit Provider Nurse Practitioner | DX: R06.02 Shortness of breath (principal) | CPT/HCPCS: 78452; 93016; 93018 ==

== ENCOUNTER 2023-10-16 10:37 | Outpatient (AMB) | payer BC, SELFPAY ==
--- NOTE | 2023-10-16 10:42 | A.OFFPC_ITS ---
Vital Signs 10/16/23 10:43 Height 5 ft 5 in BMI Reason not done Patient refused/unable BP 150/78 H Blood Pressure Location Lt brachial Position Sitting Pulse 87 Pulse Source Pulse Oximeter Pulse Oximetry (%) 98 Oxygen Delivery Method Room Air Intake Visit Reasons: possible pink eye/ allergies Intake Note: The patient is here with concerns about possible pink eye and allergies over the past week, accompanied by the recent development of green phlegm for the past three days. The patient denies experiencing any cough or additional symptoms. 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 Accompanied by: Self / Same As Patient Allergies cephalexin [From KEFLEX] Allergy (Intermediate, Verified 10/16/23 10:55) RASH chlorhexidine [CHLORHEXIDINE] Allergy (Intermediate, Verified 10/16/23 10:55) ITCHY,RASH ibuprofen [IBUPROFEN] Allergy (Intermediate, Verified 10/16/23 10:55) RASH- PER H&P latex [LATEX] Allergy (Intermediate, Verified 10/16/23 10:55) RASH Medication List - Last Reconciled 10/16/23 by Jose Oliveira PA-C albuterol sulfate 90 mcg/actuation 2 inhalations PO Q4H PRN azithromycin For 250 mg dose pack: take 500 mg today (day 1), then 250 mg for 4 days (days 2-5) PO budesonide 0.5 mg (2 mL) inhalation BID 30 days yrbhouznbo-sdhmqllk-qlpuqunmaq 160-9-4.8 mcg/actuation (Breztri Aerosphere) 2 inhalations inhalation BID 30 days cetirizine (All Day Allergy (cetirizine)) 10 mg PO DAILY PRN Dupixent Pen (dupilumab) 300 mg (2 mL) subcut Q2W NS epinephrine (EpiPen 2-Kali) 0.3 mg (0.3 mL) IM Q10M PRN 30 days fluticasone propionate 50 mcg/actuation 1 spray intranasal DAILY 30 days furosemide (Lasix) 20 mg PO DAILY PRN L.acid,casei,plant,saliv-B.ani 10 billion cell (2 billion ea) 1 cap PO DAILY levalbuterol HCl (Xopenex) 1.25 mg (3 mL) inhalation Q6H PRN 30 days levothyroxine 88 mcg PO DAILY 90 days montelukast 10 mg PO DAILY 90 days nebulizers As directed omeprazole 20 mg PO DAILY 3 months prednisone 10 mg PO DIRECTED 9 days rosuvastatin 5 mg PO DAILY 90 days triamcinolone acetonide 0.1% topical Tobacco use date assessed: 07/09/23 Dental Screening Dental Screen Date: 07/09/23 HPI possible pink eye/ allergies HPI Details Patient is a 58-year-old female here today for a problem visit.? Patient's past medical history significant for moderate persistent asthma, hypothyroidism, eczema, allergic rhinitis, obesity. She reports having left eye redness and minimal discharge. She denies any morning crusting were eyelids are stuck together. Continues on allergy medication. She tried old antibiotic eye drops though have not been effective. PLAN: Most likely allergic conjunctivitis though will cover bacterial with new antibiotic eyedrops. Advised on Visine allergy eye drop. Also mentioned she continues to have lower extremity soreness / weakness. She continues to try to be more physically active though her lower extremity issues do hold her back. She did get an EMG of her lower extremities that did show moderate to severe peripheral sensory neuropathy. She does report some worsening in her like discomfort at night.. Has tried gabapentin though has not been to effective. [facility] Medical History (Updated 10/16/23 @ 11:11 by Jose Oliveira PA-C) Tachycardia Bronchitis Dyspnea Lower extremity edema Diastolic dysfunction [id number] syndrome PONV (postoperative nausea and vomiting) Asthma GERD (gastroesophageal reflux disease) Elevated cholesterol Thyroid disease Eczema Surgical History History of surgical removal of ganglion cyst H/O colonoscopy Hx of total hip arthroplasty History of ankle surgery Family History Father CVD (cardiovascular disease) Asthma Mother Breast cancer History of corneal transplant HTN (hypertension) Hypercholesterolemia Brother No problems noted. Brother No problems noted. Brother No problems noted. Sister No problems noted. Sister No problems noted. Sister No problems noted. Son No problems noted. Son No problems noted. Son No problems noted. Daughter No problems noted. Social History Household Members: Family Household Members Other:: spouse/son Housing: House Alcohol intake: current Alcohol intake frequency: a few times a month Patient Tobacco Use Status: Never used Tobacco e-Cigarette/Vaping Use: Never Used Second Hand Smoke Exposure: No service: No Current occupational status: employed Current occupational exposures/hazards: No Cognitive needs: No Hearing needs: No Vision needs: No Questionnaire Thrive Questionnaire Date Thrive assessed: 07/09/23 MARLYS-7 AMB Questionnaire MARLYS-7 Date MARLYS - 7 assessed: 07/09/23 Source: Developed by Drs. Ruslan Crespo, Shayna Otero, Bart Butler and colleagues, with an educational jess from [employer]. Review of Systems Const Denies headache(s) Eyes Denies loss of vision ENT Denies vertigo, Denies dizziness, Denies headache(s) and Denies sore throat Card Denies chest pain, Denies leg edema and Denies lightheadedness Resp Denies cough, Denies hemoptysis and Denies wheezing GI Denies abdominal pain, Denies melena, Denies constipation, Denies diarrhea and Denies vomiting Denies urinary frequency, Denies dysuria and Denies urinary urgency Musc Denies arthralgias, Denies joint swelling, Denies numbness and Denies tingling Neuro Denies Abnormal speech present, Denies behavioral changes, Denies vertigo, Denies dizziness, Denies headache(s), Denies loss of vision, Denies memory loss, Denies numbness and Denies tingling Psych Denies anxiety, Denies behavioral changes, Denies depression, Denies memory loss and Denies panic attacks Ovidio/Lymph Denies easy bleeding and Denies easy bruising Aller/Immun Denies wheezing Physical exam (Primary Care) Vital Signs: Last Vital Signs Pulse 87 10/16/23 10:43 BP 150/78 H 10/16/23 10:43 Pulse Ox 98 10/16/23 10:43 Oxygen Delivery Method Room Air 10/16/23 10:43 Tobacco/Smoking Status: Tobacco use Status Tobacco use date assessed 07/09/23 10/16/23 10:42 Patient Tobacco Use Status Never used Tobacco 10/16/23 10:42 e-Cigarette/Vaping Use Never Used 10/16/23 10:42 Thrive Assessment: Date of Thrive Assessment Date Thrive assessed 07/09/23 10/16/23 10:42 Const General: healthy appearing, no acute distress, alert and awake Nutritional Appearance: well nourished Orientation/consciousness: oriented to person, oriented to place and oriented to time HENMT Ears: TM's normal bilaterally General nose exam: Normal nasal mucous membranes and turbinates present Eyes Other: LEFT CONJUNCTIVA AND SCLERA SLIGHTLY ERYTHEMATOUS. NO NOTABLE DISCHARGE Sclerae: sclerae normal Pupils: Equal, round and reactive pupils present Neck Neck: Yes no lymphadenopathy and Yes no JVD Thyroid: Thyroid normal Carotids: no bruits Resp Effort & Inspection: normal respiratory effort and not tachypneic Auscultation: no crackles, no rales, no rhonchi and no wheezes Cardio Rate: regular rate Rhythm: regular rhythm Heart sounds: no murmurs and normal S1 and S2 GI Palpation (GI): Soft to palpation, nontender, no hepatomegaly and no splenomegaly Auscultation: normal bowel sounds Skin General skin exam: no rashes or lesions noted and dry skin Neuro General: oriented to person, oriented to place and oriented to time Cranial nerves: Yes Equal, round and reactive pupils present Speech: No Abnormal speech present Gait exam (Neuro): Normal gait present Motor exam (neuro): no tremor noted Extrem Right upper extremity: full ROM Left upper extremity: full ROM Right lower extremity: full ROM; no edema Left lower extremity: full ROM; no edema Psych Mental Status: mental status grossly normal Speech and movement: Normal speech and movement present Affect: normal affect Attitude: cooperative Thought process: Normal thought process present Assessment and Plan Assessment & Plan (1) Conjunctivitis: Code(s): H10.9 - Unspecified conjunctivitis Qualifiers: Conjunctivitis type: acute Acute conjunctivitis type: bacterial Laterality: left Qualified Code(s): H10.32 - Unspecified acute conjunctivitis, left eye Plan: Patient's signs symptoms concerning for allergic versus bacterial conjunctivitis. Will supply patient with polymyxin eyedrops. Advised on Visine allergy eye drops. (2) Peripheral polyneuropathy: Code(s): G62.9 - Polyneuropathy, unspecified Plan: Continues to be concerned about her lower extremity neuropathic type symptoms. Will supply patient with Requip 0.5 mg for possible diagnosed of soft restless legs. Medications: New polymyxin B sulf-trimethoprim 10,000 unit- 1 mg/mL while awake; do not exceed 6 doses in 24 hours 1 drp ophthalmic (eye) QID 7 days 10 mL 0RF H10.9 - Unspecified conjunctivitis ropinirole administer 1-3 hours before bedtime 0.5 mg PO BEDTIME 14 days 14 tabs 0RF G25.81 - Restless legs syndrome, G62.9 - Polyneuropathy, unspecified, R20.2 - Paresthesia of skin Coding Level of Care Code Est Pt Level 4 (88450) Diagnoses Acute bacterial conjunctivitis of left eye H10.32 Conjunctivitis type: acute Acute conjunctivitis type: bacterial Laterality: left Peripheral polyneuropathy G62.9
[2023-10-16 10:43] VITALS: BP 150/78; PULSE 87; O2SAT 98
== END 2023-10-16 11:15 | disposition home or self-care (01) ==
PROVIDERS: PCP Physician Assistant; Visit Provider Physician Assistant
DX: H10.32 Unspecified acute conjunctivitis, left eye (principal); G62.9 Polyneuropathy, unspecified
CPT/HCPCS: 99214

== ENCOUNTER 2023-10-23 08:26 | Outpatient (AMB) | payer BC, SELFPAY ==
[2023-10-23 08:38] VITALS: PULSE 75; O2SAT 97; BMI 36.7
--- NOTE | 2023-10-23 08:38 | A.OFFVIS_ITS ---
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 Her course was complicated with bilateral pneumonia. She stayed home she did not want to be hospitalized. Ever since then her respiratory symptoms have not been the same. She has been noticing increasing shortness of breath even with minimal activity moderate severity. She could not return to work for several months after developing COVID due to her significant shortness of breath. In addition to that she has noted increasing heart rate with any activity. She did undergo an echocardiogram which was normal. The patient had allergy testing done with significant allergies and elevated IgE. The patient has not use any biologic therapy. At this point will try to maximize respiratory therapy in then reassess the need for biologic therapy. Also, recently she started developing some chest tightness and pressure. She went to her primary care who requested a chest x-ray. The x-ray demonstrated no acute disease. However her symptoms got worse she went to the ED which she has additional evaluation and blood work. Her D-dimer was below 200 which is reassuring. She was given a presumptive diagnosis of pleurisy. Currently chest discomfort has improved she currently does not have any discomfort at this time. 04/24/2023 the patient is here for pulmonary follow-up visit. Since we last spoke she is been participating in pulmonary rehabilitation. This has been helpful and beneficial. Although she is been getting some knee pains and she will be seeing orthopedics Soon. The patient continues on her current respiratory therapy with good effect. She continues with biologic therapy, Dupixent without any adverse effects. Denies any eczema. Recently she did get allergy shots and she did have significant reaction. Therefore she will follow- up with her clinical engineering director closely. She was given a dose of Kenalog because of the significant adverse reaction to the allergy shots. Respiratory gr the patient is stable on current regimen. The appears that the tachycardia has been improving which is reassuring. Likely sequelae from her COVID-19 infection. 10/23/2023 the patient is here for a pulmonary follow-up the patient has been doing fairly well from a respiratory status. Continues on the Breztri inhaler. Appears to be affecting beneficial. She rarely has to use her rescue inhaler. Does not 2 times week. She has been having issues with allergies. Having significant conjunctivitis issues and allergic reactions to her allergy shots. The Dupixent injection appears to be very affecting beneficial for her. She has not required significant amount of steroids. Is really calm down her atopic dermatitis and her asthma. She is going to try to cut down on the inhaler some. No recent imaging studies to review. She is still participating in pulmonary rehabilitation. This has been affecting beneficial. Will continue with the current respiratory regimen although she will cut down any inhalers. She will follow-up in 6 months or sooner if any issues arise. [facility] Medical History (Updated 10/16/23 @ 11:11 by Jose Oliveira PA-C) Tachycardia Bronchitis Dyspnea Lower extremity edema Diastolic dysfunction [id number] syndrome PONV (postoperative nausea and vomiting) Asthma GERD (gastroesophageal reflux disease) Elevated cholesterol Thyroid disease Eczema Surgical History History of surgical removal of ganglion cyst H/O colonoscopy Hx of total hip arthroplasty History of ankle surgery Family History Father CVD (cardiovascular disease) Asthma Mother Breast cancer History of corneal transplant HTN (hypertension) Hypercholesterolemia Brother No problems noted. Brother No problems noted. Brother No problems noted. Sister No problems noted. Sister No problems noted. Sister No problems noted. Son No problems noted. Son No problems noted. Son No problems noted. Daughter No problems noted. Social History Household Members: Family Household Members Other:: spouse/son Housing: House Alcohol intake: current Alcohol intake frequency: a few times a month Patient Tobacco Use Status: Never used Tobacco e-Cigarette/Vaping Use: Never Used Second Hand Smoke Exposure: No service: No Current occupational status: employed Current occupational exposures/hazards: No Cognitive needs: No Hearing needs: No Vision needs: No Review of Systems Const Denies chills, Reports fatigue and Denies night sweats Eyes Denies diplopia, Reports irritation, Reports itchy eyes, Denies loss of peripheral vision, Denies loss of vision, Denies eye pain, Denies seeing flashes, Denies photophobia and Denies tunnel vision ENT Denies change in voice, Denies lip swelling, Denies mouth pain, Reports nasal congestion, Reports nasal discharge and Denies tongue swelling Card Reports chest pain, Reports leg edema, Denies palpitations and Reports dyspnea on exertion Resp Denies change in phlegm color, Denies chest congestion, Reports cough, Denies pain on inspiration, Reports dyspnea on exertion and Denies wheezing GI Denies abdominal pain Musc Denies no additional complaints Skin/Breast Reports pruritus and Reports rash Neuro Denies Neuro-related abnormal movements and Denies loss of vision Psych Denies no additional complaints Endo Reports fatigue and Denies palpitations Ovidio/Lymph Denies easy bleeding and Denies lymphadenopathy Aller/Immun Reports itchy eyes, Denies lip swelling, Denies tongue swelling and Denies wheezing Physical Exam Vital Signs: Last Vital Signs Pulse 75 10/23/23 08:38 Pulse Ox 97 10/23/23 08:38 Oxygen Delivery Method Room Air 10/23/23 08:38 BMI result Body Mass Index 36.7 Const General: alert and awake Orientation/consciousness: patient oriented x3 HEENT Head: Yes normocephalic and Yes atraumatic Eyes EOM: EOMs intact bilaterally Direct Ophthalmoscopy: No photophobia Neck Neck: Yes normal visual inspection, Yes full ROM and Yes no lymphadenopathy Chest Chest palpation & inspection: normal inspection of the chest Resp Effort & Inspection: normal respiratory effort and No prolonged expiratory phase Auscultation: clear to auscultation bilaterally and no wheezes Cardio Rate: tachycardic Rhythm: regular rhythm Heart sounds: S1 normal heart sound present and S2 normal heart sound present GI Palpation (GI): Soft to palpation and nontender Auscultation: normal bowel sounds Skin General skin exam: turgor normal Rashes: no rashes Neuro General: patient oriented x3 Extrem General: Yes edema Psych Appearance: grossly normal Affect: normal affect Attitude: cooperative Assessment & Plan Assessment & Plan (1) Severe persistent allergic asthma: Code(s): J45.50 - Severe persistent asthma, uncomplicated Category: Medical (2) Allergic rhinitis: Code(s): J30.9 - Allergic rhinitis, unspecified Category: Medical Qualifiers: Allergic rhinitis seasonality: non-seasonal Allergic rhinitis trigger: fungal spores Qualified Code(s): J30.89 - Other allergic rhinitis (3) Eczema: Code(s): L30.9 - Dermatitis, unspecified Category: Medical Qualifiers: Eczema type: flexural Qualified Code(s): L20.82 - Flexural eczema (4) Dyspnea: Code(s): R06.00 - Dyspnea, unspecified Category: Medical Qualifiers: Dyspnea type: dyspnea on exertion Qualified Code(s): R06.09 - Other forms of dyspnea (5) Lower extremity edema: Code(s): R60.0 - Localized edema Category: Medical Plan continue Breztri 2 puffs twice a day, decrease to 1puff BID continue Dupixent every 2 weeks continue nasal therapy along with nasal rinsing short-acting beta agonist as needed continue singular at nighttime continue Pulmonary rehab F/U 6 months Coding Level of Care Code Est Pt Level 4 (72876) Diagnoses Severe persistent allergic asthma J45.50 Non-seasonal allergic rhinitis due to fungal spores J30.89 Allergic rhinitis seasonality: non-seasonal Allergic rhinitis trigger: fungal spores Flexural eczema L20.82 Eczema type: flexural Dyspnea on exertion R06.09 Dyspnea type: dyspnea on exertion Lower extremity edema R60.0 Time Spent (min) 16
== END 2023-10-23 08:51 | disposition home or self-care (01) ==
PROVIDERS: PCP Physician Assistant; Visit Provider Hospitalist
DX: J45.50 Severe persistent asthma, uncomplicated (principal); J30.89 Other allergic rhinitis; L20.82 Flexural eczema; R06.09 Other forms of dyspnea; R60.0 Localized edema
CPT/HCPCS: 99214

== ENCOUNTER → 2023-10-23 08:26 | Outpatient (BNVA) | payer BC, SELFPAY | PROVIDERS: PCP Physician Assistant; Visit Provider Hospitalist | DX: B94.8 Sequelae of other specified infectious and parasitic diseases (principal); J45.909 Unspecified asthma, uncomplicated ==

== ENCOUNTER 2023-12-04 07:30 | Outpatient (REF) | payer BC, SELFPAY ==
[2023-12-04 09:56] LABS: Creatinine Urine 88.89 mg/dL; Microalbum/Creatinine Ratio Ur 7.8 ug/mg cr (<30)
[2023-12-04 10:06] LABS: Alanine Aminotransferase 27 U/L (0-31); Albumin Level 4.1 g/dL (3.5-5.0); Alkaline Phosphatase 71 U/L (39-117); Anion Gap 15 (12-20); Aspartate Amino Transferase 19 U/L (5-31); Bilirubin Total 0.4 mg/dL (0.0-1.0); Blood Urea Nitrogen 12 mg/dL (9-16); Calcium 9.5 mg/dL (8.4-10.2); Carbon Dioxide 24 mmol/L (22-29); Chloride 107 mmol/L (96-108); Cholesterol 176 mg/dL (<200); Estimated Glomerular Filt Rate > 60; Glucose Fasting 94 mg/dL (60-99); HDL Cholesterol 61 mg/dL (>40); LDL Cholesterol Calculated 91 mg/dL (<100); Potassium 3.9 mmol/L (3.3-5.1); Sodium 142 mmol/L (135-145); Total Protein 6.9 g/dL (6.5-8.0); Triglycerides 121 mg/dL (<150)
[2023-12-04 10:20] LABS: TSH reflex Free T4 3.46 uIU/mL (0.32-4.0)
== END 2023-12-04 07:31 | disposition home or self-care (01) ==
LOC: HO.LAB 07:30
PROVIDERS: PCP Physician Assistant; Visit Provider Physician Assistant
DX: E78.2 Mixed hyperlipidemia (principal); I10 Essential (primary) hypertension; E03.9 Hypothyroidism, unspecified
CPT/HCPCS: 36415; 80053; 80061; 82043; 82570; 84443

== ENCOUNTER 2023-12-08 12:54 | Outpatient (AMB) | payer BC, SELFPAY ==
[2023-12-08 12:56] VITALS: BP 152/84; PULSE 99; O2SAT 97
--- NOTE | 2023-12-08 12:56 | A.OFFPC_ITS ---
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 Patient's past medical history significant for moderate persistent asthma, hypothyroidism, eczema, allergic rhinitis, obesity. Concern--> continues to left lower extremity dull achy type pain worse at night. Was thought to be restless leg though does also moderate to severe neuropathy. She says gabapentin has been helpful for her in the past and would like to restart this medication. Neuropathy lower extremities: Most recent EMG testing showing moderate to severe neuropathy worsening left lower extremity. Not clear if this is related to previous surgery verses lumbar spine disease. She does have an abnormal gait to which she wears orthotics to help stabilize her gait. She has started in pulmonary rehab for her asthma and plans to be more physically active. She is discouraged that she has not lost much weight and is interested in injectable therapy to help her lose weight. She has followed up with Orthopedics in [place] whom recommend cortisone injections. .. Moderate persistent asthma/ Allergies: (? has a previous history of severe COVID infection leading? to 3 months out of work). 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 steroids.? Has been started on budesonide inhaled nebulizer treatments.? She is though feels as effective as she would like.. She continues to have shortness of breath on exertion She is receiving allergy injections and Dupixent which has been somewhat effective. Recently had allergy injections and has localized reactions. We did discuss the possibility of doing another cardiac stress test though at this time still considering. .. Hypothyroidism: Most recent TSH is stable. Continues on levothyroxine 88 mcg which has been effective. .. Hyperlipidemia:? Recent lipid panel showing much improved total cholesterol and LDL. She continues on statin therapy without side effect. Laboratory Tests 07/08/23 12/04/23 07:42 08:16 Hgb 12.7 Fasting Glucose 105 H 94 Cholesterol 215 H 176 LDL Cholesterol, C alc 112 H 91 PFSH Medical History (Updated 10/16/23 @ 11:11 by Jose Oliveiar PA-C) Tachycardia Bronchitis Dyspnea Lower extremity edema Diastolic dysfunction [id number] syndrome PONV (postoperative nausea and vomiting) Asthma GERD (gastroesophageal reflux disease) Elevated cholesterol Thyroid disease Eczema Surgical History History of surgical removal of ganglion cyst H/O colonoscopy Hx of total hip arthroplasty History of ankle surgery Family History Father CVD (cardiovascular disease) Asthma Mother Breast cancer History of corneal transplant HTN (hypertension) Hypercholesterolemia Brother No problems noted. Brother No problems noted. Brother No problems noted. Sister No problems noted. Sister No problems noted. Sister No problems noted. Son No problems noted. Son No problems noted. Son No problems noted. Daughter No problems noted. Social History Household Members: Family Household Members Other:: spouse/son Housing: House Alcohol intake: current Alcohol intake frequency: a few times a month Patient Tobacco Use Status: Never used Tobacco e-Cigarette/Vaping Use: Never Used Second Hand Smoke Exposure: No service: No Current occupational status: employed Current occupational exposures/hazards: No Cognitive needs: No Hearing needs: No Vision needs: No Questionnaire Thrive Questionnaire Date Thrive assessed: 07/09/23 MARLYS-7 AMB Questionnaire MARLYS-7 Date MARLYS - 7 assessed: 07/09/23 Source: Developed by Drs. Ruslan Crespo, Shayna Otero, Bart Butler and colleagues, with an educational jess from [employer]. Review of Systems Const Denies headache(s) Eyes Denies loss of vision ENT Denies vertigo, Denies dizziness, Denies headache(s) and Denies sore throat Card Denies chest pain, Denies leg edema and Denies lightheadedness Resp Denies cough, Denies hemoptysis and Denies wheezing GI Denies abdominal pain, Denies melena, Denies constipation, Denies diarrhea and Denies vomiting Denies urinary frequency, Denies dysuria and Denies urinary urgency Musc Denies arthralgias, Denies joint swelling, Denies numbness and Denies tingling Neuro Denies Abnormal speech present, Denies behavioral changes, Denies vertigo, Denies dizziness, Denies headache(s), Denies loss of vision, Denies memory loss, Denies numbness and Denies tingling Psych Denies anxiety, Denies behavioral changes, Denies depression, Denies memory loss and Denies panic attacks Ovidio/Lymph Denies easy bleeding and Denies easy bruising Aller/Immun Denies wheezing Physical exam (Primary Care) Vital Signs: Last Vital Signs Pulse 99 12/08/23 12:56 BP 152/84 H 12/08/23 12:56 Pulse Ox 97 12/08/23 12:56 Oxygen Delivery Method Room Air 12/08/23 12:56 Tobacco/Smoking Status: Tobacco use Status Tobacco use date assessed 07/09/23 12/08/23 12:57 Patient Tobacco Use Status Never used Tobacco 12/08/23 12:57 e-Cigarette/Vaping Use Never Used 12/08/23 12:57 Thrive Assessment: Date of Thrive Assessment Date Thrive assessed 07/09/23 12/08/23 12:57 Const General: healthy appearing, no acute distress, alert and awake Nutritional Appearance: well nourished Orientation/consciousness: oriented to person, oriented to place and oriented to time HENMT Ears: TM's normal bilaterally General nose exam: Normal nasal mucous membranes and turbinates present Eyes Conjunctivae: conjunctivae normal Sclerae: sclerae normal Pupils: Equal, round and reactive pupils present Neck Neck: Yes no lymphadenopathy and Yes no JVD Thyroid: Thyroid normal Carotids: no bruits Resp Effort & Inspection: normal respiratory effort and not tachypneic Auscultation: no crackles, no rales, no rhonchi and no wheezes Cardio Rate: regular rate Rhythm: regular rhythm Heart sounds: no murmurs and normal S1 and S2 GI Palpation (GI): Soft to palpation, nontender, no hepatomegaly and no splenomegaly Auscultation: normal bowel sounds Skin General skin exam: no rashes or lesions noted and dry skin Neuro General: oriented to person, oriented to place and oriented to time Cranial nerves: Yes Equal, round and reactive pupils present Speech: No Abnormal speech present Gait exam (Neuro): Normal gait present Motor exam (neuro): no tremor noted Extrem Right upper extremity: full ROM Left upper extremity: full ROM Right lower extremity: full ROM; no edema Left lower extremity: full ROM; no edema Psych Mental Status: mental status grossly normal Speech and movement: Normal speech and movement present Affect: normal affect Attitude: cooperative Thought process: Normal thought process present Assessment and Plan Assessment & Plan (1) Hyperlipidemia: Code(s): E78.5 - Hyperlipidemia, unspecified Qualifiers: Hyperlipidemia type: mixed hyperlipidemia Qualified Code(s): E78.2 - Mixed hyperlipidemia Plan: Most recent fasting lipid panel showing much improved total cholesterol and LDL. She will continue on current dose of statin potency with goal LDL to remain below 130. (2) Elevated fasting blood sugar: Code(s): R73.01 - Impaired fasting glucose Plan: Most recent fasting blood sugar showing improvement. She will continue to work on lifestyle and dietary modifications. (3) Essential hypertension: Code(s): I10 - Essential (primary) hypertension Plan: Patient's blood pressure acceptable today in office. Currently her blood pressure is managed by lifestyle and dietary modifications. (4) Severe persistent allergic asthma: Code(s): J45.50 - Severe persistent asthma, uncomplicated Plan: Continues to follow pulmonology. Continues on maintenance inhaler and rescue inhalers. Also on Dupixent. Unfortunately continues to shortness of breath worse on exertion. Recent PFTs done waiting results Pulmonology Patient has started pulmonary rehab which has been helpful to be more physically active. (5) Obese: Code(s): E66.9 - Obesity, unspecified Qualifiers: Obesity type: due to excess calories Obesity classification: adult class 2 (BMI 35 - 39.9) Serious obesity comorbidity presence: with serious comorbidity Body mass index: BMI 36.0-36.9 Qualified Code(s): E66.01 - Morbid (severe) obesity due to excess calories; Z68.36 - Body mass index [BMI] 36.0- 36.9, adult Plan: Patient does understand her BMI is in obese category will continue trying to be more physically active and adapting to better eating habits to reduce her weight. Orders: Orders Comprehensive Notus. Panel Fast Today E78.2 - Mixed hyperlipidemia Complete Blood Count no Diff Today E78.2 - Mixed hyperlipidemia Lipid Panel Today E78.2 - Mixed hyperlipidemia TSH reflex Free T4 4 Months E03.9 - Hypothyroidism, unspecified Medications: New gabapentin 300 mg PO BEDTIME 30 days 30 caps 1RF G25.81 - Restless legs syndrome Discontinued ropinirole administer 1-3 hours before bedtime Discontinued Reason: Change Referral Type 0.5 mg PO BEDTIME 14 days 14 tabs 0RF G25.81 - Restless legs syndrome, G62.9 - Polyneuropathy, unspecified, R20.2 - Paresthesia of skin Patient Instructions: Goal: LDL to remain below 130 Barriers: Adherence to physical activity and healthy eating habits, neuropathy in her lower extremities Coding Level of Care Code Est Pt Level 4 (17090) Complex EM visit Add On G2211 Diagnoses Mixed hyperlipidemia E78.2 Hyperlipidemia type: mixed hyperlipidemia Elevated fasting blood sugar R73.01 Essential hypertension I10 Severe persistent allergic asthma J45.50 Class 2 severe obesity due to excess calories with serious comorbidity and body mass index (BMI) of 36.0 to 36.9 in adult E66.01; Z68.36 Obesity type: due to excess calories Obesity classification: adult class 2 (BMI 35 - 39.9) Serious obesity comorbidity presence: with serious comorbidity Body mass index: BMI 36.0-36.9
== END 2023-12-08 13:30 | disposition home or self-care (01) ==
PROVIDERS: PCP Physician Assistant; Visit Provider Physician Assistant
DX: E78.2 Mixed hyperlipidemia (principal); J45.50 Severe persistent asthma, uncomplicated; E66.01 Morbid (severe) obesity due to excess calories; Z68.36 Body mass index [BMI] 36.0-36.9, adult; R73.01 Impaired fasting glucose; I10 Essential (primary) hypertension
CPT/HCPCS: 99214

== ENCOUNTER 2024-02-05 08:56 | Outpatient (AMB) | payer BC, SELFPAY ==
[2024-02-05 09:01] VITALS: BP 148/78; PULSE 78; O2SAT 100
--- NOTE | 2024-02-05 09:01 | MHC.OFFVIS ---
Vital Signs 02/05/24 09:01 Height 5 ft 5 in BP 148/78 H Blood Pressure Location Rt brachial Position Sitting Pulse 78 Pulse Source Doppler Pulse Oximetry (%) 100 Oxygen Delivery Method Room Air Intake Visit Reasons: Shortness of breath Allergies cephalexin [From KEFLEX] Allergy (Intermediate, Verified 02/05/24 09:02) RASH chlorhexidine [CHLORHEXIDINE] Allergy (Intermediate, Verified 02/05/24 09:02) ITCHY,RASH ibuprofen [IBUPROFEN] Allergy (Intermediate, Verified 02/05/24 09:02) RASH- PER H&P latex [LATEX] Allergy (Intermediate, Verified 02/05/24 09:02) RASH HPI Comments Details: The patient is a 59-year-old woman with a known history of lifelong asthma in significant allergies who apparently developed COVID-19 back in August of 2019. Her course was complicated with bilateral pneumonia. She stayed home she did not want to be hospitalized. Ever since then her respiratory symptoms have not been the same. She has been noticing increasing shortness of breath even with minimal activity moderate severity. She could not return to work for several months after developing COVID due to her significant shortness of breath. In addition to that she has noted increasing heart rate with any activity. She did undergo an echocardiogram which was normal. The patient had allergy testing done with significant allergies and elevated IgE. The patient has not use any biologic therapy. At this point will try to maximize respiratory therapy in then reassess the need for biologic therapy. Also, recently she started developing some chest tightness and pressure. She went to her primary care who requested a chest x-ray. The x-ray demonstrated no acute disease. However her symptoms got worse she went to the ED which she has additional evaluation and blood work. Her D-dimer was below 200 which is reassuring. She was given a presumptive diagnosis of pleurisy. Currently chest discomfort has improved she currently does not have any discomfort at this time. 04/24/2023 the patient is here for pulmonary follow-up visit. Since we last spoke she is been participating in pulmonary rehabilitation. This has been helpful and beneficial. Although she is been getting some knee pains and she will be seeing orthopedics Soon. The patient continues on her current respiratory therapy with good effect. She continues with biologic therapy, Dupixent without any adverse effects. Denies any eczema. Recently she did get allergy shots and she did have significant reaction. 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 She was given a dose of Kenalog because of the significant adverse reaction to the allergy shots. Respiratory gr the patient is stable on current regimen. The appears that the tachycardia has been improving which is reassuring. Likely sequelae from her COVID-19 infection. 10/23/2023 the patient is here for a pulmonary follow-up the patient has been doing fairly well from a respiratory status. Continues on the Breztri inhaler. Appears to be affecting beneficial. She rarely has to use her rescue inhaler. Does not 2 times week. She has been having issues with allergies. Having significant conjunctivitis issues and allergic reactions to her allergy shots. The Dupixent injection appears to be very affecting beneficial for her. She has not required significant amount of steroids. Is really calm down her atopic dermatitis and her asthma. She is going to try to cut down on the inhaler some. No recent imaging studies to review. She is still participating in pulmonary rehabilitation. This has been affecting beneficial. Will continue with the current respiratory regimen although she will cut down any inhalers. She will follow-up in 6 months or sooner if any issues arise. 02/05/2024 the patient is here for a pulmonary follow-up visit. The patient has been having hard time with her breathing. Apparently she had a bee sting had a significant allergic reaction. Then after that she had a the inability to start her allergy shots. She has been with the allergy shots for now more than 2 weeks. She went to see her flight attendant ramp who felt that she was not moving a lot of air she had a chest x-ray done. It was done at [facility] and was no acute disease per report. The patient is still on 60 mg of prednisone. She does have 60 mg sometime next week. Feels like there is some pressure in the chest. She still has some wheezing on examination. She feels like she has a cough difficult to expectorate phlegm. Does not feel like she is having any infection. She does have a flutter valve and she is trying to the nebulizer about 3 times a day. Although she still does not feel great. The Dupixent injections have been very helpful for her. We did talk about different therapies including Tezspire but I do not believe is a good option for her right now specially with a history of eczema. We did talk about alternative therapies to prednisone including theophylline. She did take it in the past. The patient had some headaches with a. I did explain to her the theophylline could be given a lower dose and can help facilitate decrease prednisone use. In addition to the Daliresp will be a good option for her. She does have chronic bronchitis based on her symptoms. She is requiring a lot of prednisone. A PD4 inhibitor will help decrease her prednisone needs and hopefully help him with his chest congestion. She can not started low-dose and then workup to the therapeutic dose of having mcg. [facility] Medical History (Updated 02/05/24 @ 20:38 by Isiah Montemayor MD) Asthma-COPD overlap syndrome Tachycardia Bronchitis Dyspnea Lower extremity edema Diastolic dysfunction [id number] syndrome PONV (postoperative nausea and vomiting) Asthma GERD (gastroesophageal reflux disease) Elevated cholesterol Thyroid disease Eczema Surgical History History of surgical removal of ganglion cyst H/O colonoscopy Hx of total hip arthroplasty History of ankle surgery Family History Father CVD (cardiovascular disease) Asthma Mother Breast cancer History of corneal transplant HTN (hypertension) Hypercholesterolemia Brother No problems noted. Brother No problems noted. Brother No problems noted. Sister No problems noted. Sister No problems noted. Sister No problems noted. Son No problems noted. Son No problems noted. Son No problems noted. Daughter No problems noted. Social History Household Members: Family Household Members Other:: spouse/son Housing: House Alcohol intake: current Alcohol intake frequency: a few times a month Patient Tobacco Use Status: Never used Tobacco e-Cigarette/Vaping Use: Never Used Second Hand Smoke Exposure: No service: No Current occupational status: employed Current occupational exposures/hazards: No Cognitive needs: No Hearing needs: No Vision needs: No Review of Systems Const Denies chills, Reports fatigue and Denies night sweats Eyes Denies diplopia, Reports irritation, Reports itchy eyes, Denies loss of peripheral vision, Denies loss of vision, Denies eye pain, Denies seeing flashes, Denies photophobia and Denies tunnel vision ENT Denies change in voice, Denies lip swelling, Denies mouth pain, Reports nasal congestion, Reports nasal discharge and Denies tongue swelling Card Reports chest pain, Reports leg edema, Denies palpitations and Reports dyspnea on exertion Resp Denies change in phlegm color, Denies chest congestion, Reports cough, Denies pain on inspiration, Reports dyspnea on exertion and Denies wheezing GI Denies abdominal pain Musc Denies no additional complaints Skin/Breast Reports pruritus and Reports rash Neuro Denies Neuro-related abnormal movements and Denies loss of vision Psych Denies no additional complaints Endo Reports fatigue and Denies palpitations Ovidio/Lymph Denies easy bleeding and Denies lymphadenopathy Aller/Immun Reports itchy eyes, Denies lip swelling, Denies tongue swelling and Denies wheezing Physical Exam Vital Signs: Last Vital Signs Pulse 78 02/05/24 09:01 BP 148/78 H 02/05/24 09:01 Pulse Ox 100 02/05/24 09:01 Oxygen Delivery Method Room Air 02/05/24 09:01 Const General: alert and awake Orientation/consciousness: patient oriented x3 HEENT Head: Yes normocephalic and Yes atraumatic Eyes EOM: EOMs intact bilaterally Direct Ophthalmoscopy: No photophobia Neck Neck: Yes normal visual inspection, Yes full ROM and Yes no lymphadenopathy Chest Chest palpation & inspection: normal inspection of the chest Resp Effort & Inspection: normal respiratory effort and prolonged expiratory phase Auscultation: wheezes and diminished lung sounds Cardio Rate: tachycardic Rhythm: regular rhythm Heart sounds: S1 normal heart sound present and S2 normal heart sound present GI Palpation (GI): Soft to palpation and nontender Auscultation: normal bowel sounds Skin General skin exam: turgor normal Rashes: no rashes Neuro General: patient oriented x3 Extrem General: Yes edema Psych Appearance: grossly normal Affect: normal affect Attitude: cooperative Assessment & Plan Assessment & Plan (1) Severe persistent allergic asthma: Code(s): J45.50 - Severe persistent asthma, uncomplicated Category: Medical (2) Allergic rhinitis: Code(s): J30.9 - Allergic rhinitis, unspecified Category: Medical Qualifiers: Allergic rhinitis seasonality: non-seasonal Allergic rhinitis trigger: fungal spores Qualified Code(s): J30.89 - Other allergic rhinitis (3) Eczema: Code(s): L30.9 - Dermatitis, unspecified Category: Medical Qualifiers: Eczema type: flexural Qualified Code(s): L20.82 - Flexural eczema (4) Dyspnea: Code(s): R06.00 - Dyspnea, unspecified Category: Medical Qualifiers: Dyspnea type: dyspnea on exertion Qualified Code(s): R06.09 - Other forms of dyspnea (5) Lower extremity edema: Code(s): R60.0 - Localized edema Category: Medical (6) Asthma-COPD overlap syndrome: Code(s): J44.89 - Other specified chronic obstructive pulmonary disease Category: Medical Plan continue Breztri 2 puffs twice a day, decrease to 1puff BID continue Dupixent every 2 weeks continue nasal therapy along with nasal rinsing short-acting beta agonist as needed continue singular at nighttime continue prednisone taper start Daliresp consider Theophylline continue Pulmonary rehab when better F/U 2-3 months Medications: New roflumilast (Daliresp) 250 mcg PO DAILY 30 tabs 11RF 30 days J44.9 - Chronic obstructive pulmonary disease, unspecified Coding Level of Care Code Est Pt Level 4 (91484) Diagnoses Severe persistent allergic asthma J45.50 Non-seasonal allergic rhinitis due to fungal spores J30.89 Allergic rhinitis seasonality: non-seasonal Allergic rhinitis trigger: fungal spores Flexural eczema L20.82 Eczema type: flexural Dyspnea on exertion R06.09 Dyspnea type: dyspnea on exertion Lower extremity edema R60.0 Asthma-COPD overlap syndrome J44.89 Time Spent (min) 16
== END 2024-02-05 09:21 | disposition home or self-care (01) ==
PROVIDERS: PCP Physician Assistant; Visit Provider Hospitalist
DX: J45.50 Severe persistent asthma, uncomplicated (principal); J30.89 Other allergic rhinitis; L20.82 Flexural eczema; R06.09 Other forms of dyspnea; R60.0 Localized edema; J44.89 Other specified chronic obstructive pulmonary disease
CPT/HCPCS: 99214

== ENCOUNTER → 2024-02-05 08:56 | Outpatient (BNVA) | payer BC, SELFPAY | PROVIDERS: PCP Physician Assistant; Visit Provider Hospitalist ==

== ENCOUNTER 2024-03-02 07:38 | Outpatient (REF) | payer BC, SELFPAY ==
--- NOTE | ~2024-03-02 | MM_ITS ---
EXAMINATION: MM SCREENING DIGITAL BREAST TOMOSYNTHESIS, BILATERAL CLINICAL INFORMATION: Screening. Asymptomatic. COMPARISON: Mammography: This study is compared with prior exams dating back to 2019. TECHNIQUE: Digital breast tomosynthesis is performed in both the craniocaudal and mediolateral oblique views along with computer-aided detection (CAD). Synthesized 2D images are generated from the tomosynthesis. FINDINGS: There are scattered areas of fibroglandular density (ACR BI-RADS breast composition Category b). There are no significant masses, abnormal calcifications, or other abnormalities. MM/MM tomosynthesis screening BI IMPRESSION: No mammographic evidence of malignancy. ASSESSMENT: BI-RADS BI-RADS 1 - Negative RECOMMENDATION: Routine annual mammography screening. 1 year F/U This examination should not preclude the clinical evaluation of a suspicious palpable abnormality. This patient's information was entered into a reminder system with a target due date for their next mammogram. Electronically signed by: Tahmina Tapia MD 03/15/2024 10:59 AM EDT
== END 2024-03-02 07:39 | disposition home or self-care (01) ==
LOC: HO.MAMMO 07:38
PROVIDERS: PCP Physician Assistant; Visit Provider Physician Assistant
DX: Z12.31 Encounter for screening mammogram for malignant neoplasm of breast (principal)
CPT/HCPCS: 77063; 77067

== ENCOUNTER → 2024-03-02 07:45 | Outpatient (BNV) | payer BC, SELFPAY | PROVIDERS: PCP Physician Assistant; Visit Provider Radiology Diagnostic Radiology | DX: Z12.31 Encounter for screening mammogram for malignant neoplasm of breast (principal) | CPT/HCPCS: 77063; 77067 ==

== ENCOUNTER 2024-04-23 07:59 | Outpatient (REF) | payer BC, SELFPAY ==
[2024-04-23 08:52] LABS: Hematocrit 39.4 % (37.0-47.0); Hemoglobin 13.1 g/dl (12.0-16.0); Mean Corpuscular HGB Conc 33.2 g/dl (31.0-35.0); Mean Corpuscular Volume 87.4 fL (80.0-98.0); Mean Platelet Volume 10.1 fL (9.4-12.3); Platelet Count 292 X10*3/uL (160-400); Red Blood Count 4.51 X10*6/uL (4.20-5.50); Red Cell Distribution Width 13.8 % (11.0-16.0); White Blood Count 7.1 X10*3/uL (4.8-10.8)
[2024-04-23 09:24] LABS: Alanine Aminotransferase 43 U/L (0-31); Albumin Level 4.3 g/dL (3.5-5.0); Alkaline Phosphatase 68 U/L (39-117); Anion Gap 13 (12-20); Aspartate Amino Transferase 28 U/L (5-31); Bilirubin Total 0.4 mg/dL (0.0-1.0); Blood Urea Nitrogen 8 mg/dL (9-16); Calcium 10.4 mg/dL (8.4-10.2); Carbon Dioxide 24 mmol/L (22-29); Chloride 108 mmol/L (96-108); Cholesterol 210 mg/dL (<200); Estimated Glomerular Filt Rate > 60; Glucose Fasting 144 mg/dL (60-99); HDL Cholesterol 65 mg/dL (>40); LDL Cholesterol Calculated 123 mg/dL (<100); Potassium 4.1 mmol/L (3.3-5.1); Sodium 141 mmol/L (135-145); Total Protein 7.2 g/dL (6.5-8.0); Triglycerides 112 mg/dL (<150)
[2024-04-23 09:40] LABS: TSH reflex Free T4 1.15 uIU/mL (0.32-4.0)
== END 2024-04-23 08:00 | disposition home or self-care (01) ==
LOC: HO.LAB 07:59
PROVIDERS: PCP Physician Assistant; Visit Provider Physician Assistant
DX: E78.2 Mixed hyperlipidemia (principal); E03.9 Hypothyroidism, unspecified
CPT/HCPCS: 36415; 80053; 80061; 84443; 85027

== ENCOUNTER 2024-04-28 08:06 | Outpatient (AMB) | payer BC, SELFPAY ==
[2024-04-28 08:18] VITALS: BP 146/82; PULSE 104; O2SAT 98
--- NOTE | 2024-04-28 08:18 | MHC.PC.OV ---
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 Allergies cephalexin [From KEFLEX] Allergy (Intermediate, Verified 04/28/24 08:28) RASH chlorhexidine [CHLORHEXIDINE] Allergy (Intermediate, Verified 04/28/24 08:28) ITCHY,RASH ibuprofen [IBUPROFEN] Allergy (Intermediate, Verified 04/28/24 08:28) RASH- PER H&P latex [LATEX] Allergy (Intermediate, Verified 04/28/24 08:28) RASH Medication List - Last Reconciled 04/28/24 by Jose Oliveira PA-C albuterol sulfate 90 mcg/actuation 2 inhalations PO Q4H PRN budesonide 0.5 mg (2 mL) inhalation BID 30 days [id number] 160-9-4.8 mcg/actuation (Breztri Aerosphere) 2 inhalations inhalation BID 30 days cetirizine (All Day Allergy (cetirizine)) 10 mg PO DAILY PRN Dupixent Pen (dupilumab) 300 mg (2 mL) subcut Q2W NS epinephrine (EpiPen 2-Kali) 0.3 mg (0.3 mL) IM Q10M PRN 30 days fluticasone propionate 50 mcg/actuation 1 spray intranasal DAILY 30 days furosemide (Lasix) 20 mg PO DAILY PRN gabapentin 300 mg PO BEDTIME 30 days L.acid,casei,plant,saliv-B.ani 10 billion cell (2 billion ea) 1 cap PO DAILY levalbuterol HCl 1.25 mg (3 mL) inhalation Q6H PRN levothyroxine 88 mcg PO DAILY 90 days montelukast 10 mg PO DAILY 90 days nebulizers As directed omeprazole 20 mg PO DAILY 3 months polymyxin B sulf-trimethoprim 10,000 unit- 1 mg/mL 1 drp ophthalmic (eye) QID 7 days prednisone 20 mg PO BID prednisone mg PO roflumilast (Daliresp) 500 mcg PO DAILY 90 days rosuvastatin 5 mg PO DAILY 90 days triamcinolone acetonide 0.1% topical Tobacco use date assessed: 07/09/23 Dental Screening Dental Screen Date: 07/09/23 HPI F/U HLD HPI Details Patient is a 59-year-old female here today for a follow-up visit.? Patient's past medical history significant for moderate persistent asthma, hypothyroidism, eczema, allergic rhinitis, obesity. Concern--> have noted elevated fasting blood sugar on most recent labs. She has been on a large amount glucocorticoid steroids recently for her severe allergy outbreaks and her asthma. CHRONIC MEDICAL CONDITION--> Neuropathy lower extremities: Most recent EMG testing showing moderate to severe neuropathy worsening left lower extremity. Not clear if this is related to previous surgery verses lumbar spine disease. She does have an abnormal gait to which she wears orthotics to help stabilize her gait. She has started in pulmonary rehab for her asthma and plans to be more physically active. She is discouraged that she has not lost much weight and is interested in injectable therapy to help her lose weight. She has followed up with Orthopedics in [place] whom recommend cortisone injections. .. Moderate persistent asthma/ Allergies: (? has a previous history of severe COVID infection leading? to 3 months out of work). 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 steroids.? Has been started on budesonide inhaled nebulizer treatments.? She is though feels as effective as she would like.. She continues to have shortness of breath on exertion She is receiving allergy injections and Dupixent which has been somewhat effective. Recently had allergy injections and has localized reactions. We did discuss the possibility of doing another cardiac stress test though at this time still considering. .. Hypothyroidism: Most recent TSH is stable. Continues on levothyroxine 88 mcg which has been effective. .. Hyperlipidemia:? Recent lipid panel showing elevated total cholesterol LDL. She continues on statin therapy without side effect. Recent labs reviewed and noted some elevation in her cholesterol and an elevated fasting blood sugar at 146. 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 Brother No problems noted. Brother No problems noted. Sister No problems noted. Sister No problems noted. Sister No problems noted. Son No problems noted. Son No problems noted. Son No problems noted. Daughter No problems noted. Social History Household Members: Family Household Members Other:: spouse/son Housing: House Alcohol intake: current Alcohol intake frequency: a few times a month Patient Tobacco Use Status: Never used Tobacco e-Cigarette/Vaping Use: Never Used Second Hand Smoke Exposure: No service: No Current occupational status: employed Current occupational exposures/hazards: No Cognitive needs: No Hearing needs: No Vision needs: No Questionnaire Thrive Questionnaire Date Thrive assessed: 07/09/23 AUDIT C Alcohol Use Questionnaire (AUDIT-C) 2. How many drinks containing alcohol do you have on a typical day when you are drinking?: 1 or 2 3. How often do you have six or more drinks on one occasion?: Less than monthly Total Score: 1 MARLYS-7 AMB Questionnaire MARLYS-7 Date MARLYS - 7 assessed: 07/09/23 Source: Developed by Drs. Ruslan Crespo, Shayna Otero, Bart Butler and colleagues, with an educational jess from [employer]. Review of Systems Const Denies headache(s) Eyes Denies loss of vision ENT Denies vertigo, Denies dizziness, Denies headache(s) and Denies sore throat Card Denies chest pain, Denies leg edema and Denies lightheadedness Resp Denies cough, Denies hemoptysis and Denies wheezing GI Denies abdominal pain, Denies melena, Denies constipation, Denies diarrhea and Denies vomiting Denies urinary frequency, Denies dysuria and Denies urinary urgency Musc Denies arthralgias, Denies joint swelling, Denies numbness and Denies tingling Neuro Denies Abnormal speech present, Denies behavioral changes, Denies vertigo, Denies dizziness, Denies headache(s), Denies loss of vision, Denies memory loss, Denies numbness and Denies tingling Psych Denies anxiety, Denies behavioral changes, Denies depression, Denies memory loss and Denies panic attacks Ovidio/Lymph Denies easy bleeding and Denies easy bruising Aller/Immun Denies wheezing Physical exam (Primary Care) Vital Signs: Last Vital Signs Pulse 104 H 04/28/24 08:18 BP 146/82 H 04/28/24 08:18 Pulse Ox 98 04/28/24 08:18 Oxygen Delivery Method Room Air 04/28/24 08:18 Tobacco/Smoking Status: Tobacco use Status Tobacco use date assessed 07/09/23 04/28/24 08:18 Patient Tobacco Use Status Never used Tobacco 04/28/24 08:18 e-Cigarette/Vaping Use Never Used 04/28/24 08:18 Thrive Assessment: Date of Thrive Assessment Date Thrive assessed 07/09/23 04/28/24 08:18 Const General: healthy appearing, no acute distress, alert and awake Nutritional Appearance: well nourished Orientation/consciousness: oriented to person, oriented to place and oriented to time HENMT Ears: TM's normal bilaterally General nose exam: Normal nasal mucous membranes and turbinates present Eyes Conjunctivae: conjunctivae normal Sclerae: sclerae normal Pupils: Equal, round and reactive pupils present Neck Neck: Yes no lymphadenopathy and Yes no JVD Thyroid: Thyroid normal Carotids: no bruits Resp Effort & Inspection: normal respiratory effort and not tachypneic Auscultation: no crackles, no rales, no rhonchi and no wheezes Cardio Rate: regular rate Rhythm: regular rhythm Heart sounds: no murmurs and normal S1 and S2 GI Palpation (GI): Soft to palpation, nontender, no hepatomegaly and no splenomegaly Auscultation: normal bowel sounds Skin General skin exam: no rashes or lesions noted and dry skin Neuro General: oriented to person, oriented to place and oriented to time Cranial nerves: Yes Equal, round and reactive pupils present Speech: No Abnormal speech present Gait exam (Neuro): Normal gait present Motor exam (neuro): no tremor noted Extrem Right upper extremity: full ROM Left upper extremity: full ROM Right lower extremity: full ROM; no edema Left lower extremity: full ROM; no edema Psych Mental Status: mental status grossly normal Speech and movement: Normal speech and movement present Affect: normal affect Attitude: cooperative Thought process: Normal thought process present Coding Level of Care Code Est Pt Level 4 (43753) Diagnoses Asthma-COPD overlap syndrome J44.89 Impaired glucose metabolism R73.09 Mixed hyperlipidemia E78.2 Hyperlipidemia type: mixed hyperlipidemia Essential hypertension I10 Assessment & Plan Assessment & Plan (1) Asthma-COPD overlap syndrome: Code(s): J44.89 - Other specified chronic obstructive pulmonary disease Category: Medical Plan: Patient continues to follow pulmonology. She has been started on Daliresp which seems to have been helping her pulmonary status. She has been on a lot of steroids due to allergic reactions (2) Impaired glucose metabolism: Code(s): R73.09 - Other abnormal glucose Category: Medical Plan: Most recent fasting blood sugar elevated. This is likely due to high doses of steroids recently throughout the summer due to allergic reactions. 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 Will recheck lipid panel in 4 months to ensure normalization. Will continue on statin therapy as is (4) Essential hypertension: Code(s): I10 - Essential (primary) hypertension Category: Medical Plan: Patient's blood pressure elevated today in office. She reports her blood pressures at home and at work has been normal below 140/90 Advised to do home blood pressure monitoring more regularly and contact us back if consistently above 140/90. Will consider blood pressure medication. Orders: Orders Hemoglobin A1c Today R73.09 - Other abnormal glucose TSH reflex Free T4 4 Months E03.9 - Hypothyroidism, unspecified Comprehensive [place]. Panel Fast Today R73.09 - Other abnormal glucose Lipid Panel Today E78.2 - Mixed hyperlipidemia
== END 2024-04-28 08:46 | disposition home or self-care (01) ==
LOC: HO.HMCH 08:07
PROVIDERS: PCP Physician Assistant; Visit Provider Physician Assistant
DX: J44.89 Other specified chronic obstructive pulmonary disease (principal); R73.09 Other abnormal glucose; E78.2 Mixed hyperlipidemia; I10 Essential (primary) hypertension

== ENCOUNTER → 2024-04-28 08:06 | Outpatient (BNVA) | payer BC, SELFPAY | PROVIDERS: PCP Physician Assistant; Visit Provider Physician Assistant ==

== ENCOUNTER 2024-07-09 13:09 | Outpatient (AMB) | payer BC, SELFPAY ==
[2024-07-09 13:15] VITALS: BP 132/70; PULSE 113; O2SAT 96
--- NOTE | 2024-07-09 13:15 | A.OFFVIS_ITS ---
Vital Signs 07/09/24 13:15 Height 5 ft 5 in BMI Reason not done Patient refused/unable BP 132/70 Blood Pressure Location Rt brachial Position Sitting Pulse 113 H Pulse Source Pulse Oximeter Pulse Oximetry (%) 96 Oxygen Delivery Method Room Air Intake Visit Reasons: Shortness of breath Allergies cephalexin [From KEFLEX] Allergy (Intermediate, Verified 07/09/24 13:18) RASH chlorhexidine [CHLORHEXIDINE] Allergy (Intermediate, Verified 07/09/24 13:18) ITCHY,RASH ibuprofen [IBUPROFEN] Allergy (Intermediate, Verified 07/09/24 13:18) RASH- PER H&P latex [LATEX] Allergy (Intermediate, Verified 07/09/24 13:18) RASH HPI Comments Details: The patient is a 59-year-old woman with a known history of lifelong asthma in significant allergies who apparently developed COVID-19 back in August of 2019. Her course was complicated with bilateral pneumonia. She stayed home she did not want to be hospitalized. Ever since then her respiratory symptoms have not been the same. She has been noticing increasing shortness of breath even with minimal activity moderate severity. She could not return to work for several months after developing COVID due to her significant shortness of breath. In addition to that she has noted increasing heart rate with any activity. She did undergo an echocardiogram which was normal. The patient had allergy testing d one with significant allergies and elevated IgE. The patient has not use any biologic therapy. At this point will try to maximize respiratory therapy in then reassess the need for biologic therapy. Also, recently she started developing some chest tightness and pressure. She went to her primary care who requested a chest x-ray. The x-ray demonstrated no acute disease. However her symptoms got worse she went to the ED which she has additional evaluation and blood work. Her D-dimer was below 200 which is reassuring. She was given a presumptive diagnosis of pleurisy. Currently chest discomfort has improved she currently does not have any discomfort at this time. 04/24/2023 the patient is here for pulmonary follow-up visit. Since we last spoke she is been participating in pulmonary rehabilitation. This has been helpful and beneficial. Although she is been getting some knee pains and she will be seeing orthopedics Soon. The patient continues on her current respiratory therapy with good effect. She continues with biologic therapy, Dupixent without any adverse effects. Denies any eczema. Recently she did get allergy shots and she did have significant reaction. Therefore she will follow- up with her economic research analyst closely. She was given a dose of Kenalog because of the significant adverse reaction to the allergy shots. Respiratory gr the patient is stable on current regimen. The appears that the tachycardia has been improving which is reassuring. Likely sequelae from her COVID-19 infection. 10/23/2023 the patient is here for a pulmonary follow-up the patient has been doing fairly well from a respiratory status. Continues on the Breztri inhaler. Appears to be affecting beneficial. She rarely has to use her rescue inhaler. Does not 2 times week. She has been having issues with allergies. Having significant conjunctivitis issues and allergic reactions to her allergy shots. The Dupixent injection appears to be very affecting beneficial for her. She has not required significant amount of steroids. Is really calm down her atopic dermatitis and her asthma. She is going to try to cut down on the inhaler some. No recent imaging studies to review. She is still participating in pulmonary rehabilitation. This has been affecting beneficial. Will continue with the current respiratory regimen although she will cut down any inhalers. She will follow-up in 6 months or sooner if any issues arise. 02/05/2024 the patient is here for a pulmonary follow-up visit. The patient has been having hard time with her breathing. Apparently she had a bee sting had a significant allergic reaction. Then after that she had a the inability to start her allergy shots. She has been with the allergy shots for now more than 2 weeks. She went to see her economic research analyst who felt that she was not moving a lot of air she had a chest x-ray done. It was done at [facility] and was no acute disease per report. The patient is still on 60 mg of prednisone. She does have 60 mg sometime next week. Feels like there is some pressure in the chest. She still has some wheezing on examination. She feels like she has a cough difficult to expectorate phlegm. Does not feel like she is having any infection. She does have a flutter valve and she is trying to the nebulizer about 3 times a day. Although she still does not feel great. The Dupixent injections have been very helpful for her. We did talk about different therapies including Tezspire but I do not believe is a good option for her right now specially with a history of eczema. We did talk about alternative t herapies to prednisone including theophylline. She did take it in the past. The patient had some headaches with a. I did explain to her the theophylline could be given a lower dose and can help facilitate decrease prednisone use. In addition to the Daliresp will be a good option for her. She does have chronic bronchitis based on her symptoms. She is requiring a lot of prednisone. A PD4 inhibitor will help decrease her prednisone needs and hopefully help him with his chest congestion. She can not started low-dose and then workup to the therapeutic dose of having mcg. 07/09/2024 the patient is here for a pulmonary follow-up visit. Overall she is doing well. She is tolerating the Daliresp 500 mcg dose very well. She is also using all her respiratory medications with good effect. Her major complaint is nasal congestion. But right now she does not want to take additional medications for. She does have 2 dogs at home that are visiting and she feels that that is the reason for her symptoms. She did get a noticed that her Dupixent may not be covered fully this year. She is contemplating her options. I did give information about Tezspire as this is an option for her. Although I do believe that Dupixent as a better option for her. The patient has been tolerating her respiratory medicines. Overall she is doing well she is exercising regularly. Send this time will continue with current regimen. The patient follow-up in 6 months. If she has any issues prior to that she will call for an earlier assessment. 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 Brother No problems noted. Brother No problems noted. Sister No problems noted. Sister No problems noted. Sister No problems noted. Son No problems noted. Son No problems noted. Son No problems noted. Daughter No problems noted. Social History Household Members: Family Household Members Other:: spouse/son Housing: House Alcohol intake: current Alcohol intake frequency: a few times a month Patient Tobacco Use Status: Never used Tobacco e-Cigarette/Vaping Use: Never Used Second Hand Smoke Exposure: No service: No Current occupational status: employed Current occupational exposures/hazards: No Cognitive needs: No Hearing needs: No Vision needs: No Review of Systems Const Denies chills, Reports fatigue and Denies night sweats Eyes Denies diplopia, Reports irritation, Reports itchy eyes, Denies loss of peripheral vision, Denies loss of vision, Denies eye pain, Denies seeing flashes, Denies photophobia and Denies tunnel vision ENT Denies change in voice, Denies lip swelling, Denies mouth pain, Reports nasal congestion, Reports nasal discharge and Denies tongue swelling Card Reports chest pain, Reports leg edema, Denies palpitations and Reports dyspnea on exertion Resp Denies change in phlegm color, Denies chest congestion, Reports cough, Denies pain on inspiration, Reports dyspnea on exertion and Denies wheezing GI Denies abdominal pain Musc Denies no additional complaints Skin/Breast Reports pruritus and Reports rash Neuro Denies Neuro-related abnormal movements and Denies loss of vision Psych Denies no additional complaints Endo Reports fatigue and Denies palpitations Ovidio/Lymph Denies easy bleeding and Denies lymphadenopathy Aller/Immun Reports itchy eyes, Denies lip swelling, Denies tongue swelling and Denies wheezing Physical Exam Vital Signs: Last Vital Signs Pulse 113 H 07/09/24 13:15 BP 132/70 07/09/24 13:15 Pulse Ox 96 07/09/24 13:15 Oxygen Delivery Method Room Air 07/09/24 13:15 Const General: alert and awake Orientation/consciousness: patient oriented x3 HEENT Head: Yes normocephalic and Yes atraumatic Eyes EOM: EOMs intact bilaterally Direct Ophthalmoscopy: No photophobia Neck Neck: Yes normal visual inspection, Yes full ROM and Yes no lymphadenopathy Chest Chest palpation & inspection: normal inspection of the chest Resp Effort & Inspection: normal respiratory effort and prolonged expiratory phase Auscultation: wheezes and diminished lung sounds Cardio Rate: tachycardic Rhythm: regular rhythm Heart sounds: S1 normal heart sound present and S2 normal heart sound present GI Palpation (GI): Soft to palpation and nontender Auscultation: normal bowel sounds Skin General skin exam: turgor normal Rashes: no rashes Neuro General: patient oriented x3 Extrem General: Yes edema Psych Appearance: grossly normal Affect: normal affect Attitude: cooperative Assessment & Plan Assessment & Plan (1) Severe persistent allergic asthma: Code(s): J45.50 - Severe persistent asthma, uncomplicated Category: Medical (2) Allergic rhinitis: Code(s): J30.9 - Allergic rhinitis, unspecified Category: Medical Qualifiers: Allergic rhinitis seasonality: non-seasonal Allergic rhinitis trigger: fungal spores Qualified Code(s): J30.89 - Other allergic rhinitis (3) Eczema: Code(s): L30.9 - Dermatitis, unspecified Category: Medical Qualifiers: Eczema type: flexural Qualified Code(s): L20.82 - Flexural eczema (4) Dyspnea: Code(s): R06.00 - Dyspnea, unspecified Category: Medical Qualifiers: Dyspnea type: dyspnea on exertion Qualified Code(s): R06.09 - Other forms of dyspnea (5) Lower extremity edema: Code(s): R60.0 - Localized edema Category: Medical (6) Asthma-COPD overlap syndrome: Code(s): J44.89 - Other specified chronic obstructive pulmonary disease Category: Medical Plan continue Breztri 2 puffs twice a day, decrease to 1puff BID continue Dupixent every 2 weeks (?new insurance coverage) continue nasal therapy along with nasal rinsing short-acting beta agonist as needed continue singular at nighttime Daliresp 500mcg F/U with allergy F/U 6 months Coding Level of Care Code Est Pt Level 4 (89043) Diagnoses Severe persistent allergic asthma J45.50 Non-seasonal allergic rhinitis due to fungal spores J Allergic rhinitis seasonality: non-seasonal Allergic rhinitis trigger: fungal spores Flexural eczema L20.82 Eczema type: flexural Dyspnea on exertion R06.09 Dyspnea type: dyspnea on exertion Lower extremity edema R60.0 Asthma-COPD overlap syndrome J44.89 Time Spent (min) 16
== END 2024-07-09 13:42 | disposition home or self-care (01) ==
PROVIDERS: PCP Physician Assistant; Visit Provider Hospitalist
DX: J45.50 Severe persistent asthma, uncomplicated (principal); J30.89 Other allergic rhinitis; L20.82 Flexural eczema; R06.09 Other forms of dyspnea; R60.0 Localized edema; J44.89 Other specified chronic obstructive pulmonary disease
CPT/HCPCS: 99214

== ENCOUNTER 2024-07-14 13:30 | Outpatient (REF) | payer BC, SELFPAY ==
--- NOTE | ~2024-07-14 | XR_ITS ---
EXAMINATION: XR FOOT, LEFT CLINICAL INFORMATION: M79.672 - Pain in left foot COMPARISON: Correlation made with CT left ankle 03/09/2014. TECHNIQUE: AP, lateral, and oblique views of the left foot. FINDINGS: Mild diffuse osteopenia. No evidence of acute fracture or dislocation. There has been a subtalar arthrodesis with 2 compression screws, one oriented horizontally and one oriented vertically. Hardware is intact. No lucencies. There is a small plantar calcaneal spur. Minimal pes planus present. Soft tissues appear normal. XR/XR foot LT min 3V IMPRESSION: 1. No acute findings left foot. 2. Osteopenia with subtalar arthrodesis present. Electronically signed by: Lefty Fitzgerald MD 07/14/2024 02:26 PM JUAN LUIS
== END 2024-07-14 13:31 | disposition home or self-care (01) ==
LOC: HO.XRAY 13:30
PROVIDERS: PCP Physician Assistant; Visit Provider Physician Assistant
DX: M79.672 Pain in left foot (principal)
CPT/HCPCS: 73630

== ENCOUNTER → 2024-07-14 13:37 | Outpatient (BNV) | payer BC, SELFPAY | PROVIDERS: PCP Physician Assistant; Visit Provider Radiology Diagnostic Radiology | DX: M85.872 Other specified disorders of bone density and structure, left ankle and foot (principal) | CPT/HCPCS: 73630 ==

== ENCOUNTER 2024-07-16 10:49 | Outpatient (AMB) | payer BC, SELFPAY ==
--- NOTE | 2024-07-16 10:51 | A.OFFVIS_ITS ---
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 Patient states she has 2 surgeries on her left foot for which she has done PT. She recently injured her left foot but is unsure on how she got hurt. She has been limping since the injury and has also experienced unsteady gait. She takes Tylenol without relief. Her PCP, MAGALY Francis, prescribed her some steroids but she has not taken them due to recent spike on her blood sugar levels. Allergies cephalexin [From KEFLEX] Allergy (Intermediate, Verified 07/16/24 10:57) RASH chlorhexidine [CHLORHEXIDINE] Allergy (Intermediate, Verified 07/16/24 10:57) ITCHY,RASH ibuprofen [IBUPROFEN] Allergy (Intermediate, Verified 07/16/24 10:57) RASH- PER H&P latex [LATEX] Allergy (Intermediate, Verified 07/16/24 10:57) RASH Medication List - Last Reconciled 07/16/24 by Abril Gonzalez MD albuterol sulfate 90 mcg/actuation 2 inhalations PO Q4H PRN budesonide 0.5 mg (2 mL) inhalation BID 30 days awznceecny-zznccxam-ignpeppmjp 160-9-4.8 mcg/actuation (Breztri Aerosphere) 2 inhalations inhalation BID 30 days cetirizine (All Day Allergy (cetirizine)) 10 mg PO DAILY PRN Dupixent Pen (dupilumab) 300 mg (2 mL) subcut Q2W NS epinephrine (EpiPen 2-Kali) 0.3 mg (0.3 mL) IM Q10M PRN 30 days fluticasone propionate 50 mcg/actuation 1 spray intranasal DAILY 30 days furosemide (Lasix) 20 mg PO DAILY PRN gabapentin 300 mg PO BEDTIME 30 days levalbuterol HCl 1.25 mg (3 mL) inhalation Q6H PRN levothyroxine 88 mcg PO DAILY 90 days montelukast 10 mg PO DAILY 90 days nebulizers As directed omeprazole 20 mg PO DAILY 3 months polymyxin B sulf-trimethoprim 10,000 unit- 1 mg/mL 1 drp ophthalmic (eye) QID 7 days roflumilast (Daliresp) 500 mcg PO DAILY 90 days rosuvastatin 5 mg PO DAILY 90 days triamcinolone acetonide 0.1% topical HPI Comments Details: Review of history and records: 2011: an MRI of left ankle showed EDL tenosynovitis. Subsequently underwent surgery by Dr. Culver for fusion and repair of posterior tibialis tendinitis. Gait was affected after surgery, walking more laterally on left foot as a compensation. Found also to have leg length discrepancy 2013: CT scan reported only 80-90% union on subtalar joint. MRI showed postsurgical changes, tendinopathy on peroneus brevis, Achillis tendinitis, edema on talofibular ligaments. At that point, started seeing endodontics dentist Dr. St. She was told that her right foot was also pronated, treated with orthotics and therapy. She was referred to [facility], Dr. Magdaleno, another endodontics dentist. Had another surgery for the malunion and peroneal tendinopathy; removal of some of the hardware, revision and repair. She had severe postoperative pain, treated with gabapentin. She was on a high cast for 3 months. When the cast was removed, she noted numbness from left knee downwards. This numbness has continued until today. Left leg/foot was weak, thought to be a footdrop, and she has been limping since then. 2014: EMG done by Dr. 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 There was some consideration for possible L4 radiculopathy but patient denies any back pain, denies sciatic symptoms, unless depending on positioning. Her left lower extremity symptoms are separate from any back pain. An ultrasound done at that time did not reveal any DVT. 2020: Patient had left MRI knee that reported meniscal tear. Underwent arthro scopic surgery by Dr. Slaughter. 2022: Saw Dr. Schwab for follow-up. Dr. Schwab did not think this is connected to left knee. Referred her to pain management for evaluation of lumbar radiculopathy. Patient saw Dr. Ospina who did not think this is lumbar radiculopathy. Lumbar x-rays were done but not MRI. Also same year, patient had another EMG, done by Dr. Mead, which reported peripheral neuropathy. On review of nerve conduction tables, sensory nerves tested showed small amplitudes but most of the peak latencies were normal. Patient has history of thyroid disorder. Drinks 1 glass of wine a day if ever. She takes vitamin-D and multivitamin supplements. No past history of diabetes, cancer, chemotherapy, HIV or hepatitis. Denies any history of hereditary neuropathy in the family. She had COVID in 2019 which exacerbated leg pains. Chronic steroid use due to asthma. She has chronic left leg pain and numbness. Poor or absent arches on both sides, even since childhood. Walks with a limp. She has had an AFO which is cut at the ankle with a hinge. She has had orthotics. She works full-time, could be on her feet all day. She tries to exercise, use the elliptical. Last Friday, started having more pain on left ankle. It feels more swollen and sensitive to touch. She has only taken Tylenol or Aleve as needed. [facility] Medical History (Updated 07/14/24 @ 13:01 by Jose Oliveira PA-C) Sinusitis COVID-19 Asthma-COPD overlap syndrome Tachycardia Bronchitis Dyspnea Lower extremity edema Diastolic dysfunction [id number] syndrome PONV (postoperative nausea and vomiting) Asthma GERD (gastroesophageal reflux disease) Elevated cholesterol Thyroid disease Eczema Surgical History (Updated 07/16/24 @ 10:59 by TORSTEN Ribera) History of surgical removal of ganglion cyst H/O colonoscopy Hx of total hip arthroplasty History of ankle surgery Family History Father CVD (cardiovascular disease) Asthma Mother Breast cancer History of corneal transplant HTN (hypertension) Hypercholesterolemia Brother No problems noted. Brother No problems noted. Brother No problems noted. Sister No problems noted. Sister No problems noted. Sister No problems noted. Son No problems noted. Son No problems noted. Son No problems noted. Daughter No problems noted. Social History Household Members: Family Household Members Other:: spouse/son Housing: House Alcohol intake: current Alcohol intake frequency: a few times a month Patient Tobacco Use Status: Never used Tobacco e-Cigarette/Vaping Use: Never Used Second Hand Smoke Exposure: No service: No Current occupational status: employed Current occupational exposures/hazards: No Cognitive needs: No Hearing needs: No Vision needs: No Review of Systems Const All systems reviewed & are unremarkable except as noted in HPI and below Physical Exam Constitutional: Patient appears to be in no acute distress, well nourished and well developed. Patient was appropriately conversant and oriented. Good historian. MSK: Gait is antalgic, drags left foot. However when she is seated, dorsiflexion is 5/5. With support, she can stand on her heels or toes equally. Knee extension is 5/5. Hip flexion 4+/5. Left foot appears more swollen and red compared to the right. No allodynia. No sensitivity to touch. No tenderness to touch even. No calf tenderness. No atrophy. Neurological: Jo?s negative bilaterally. Babinski was down going bilaterally. Clonus was negative. Results Reviewed Results Reviewed: As above Assessment & Plan Assessment & Plan (1) Left foot pain: Code(s): M79.672 - Pain in left foot Category: Medical (2) Gait disturbance: Code(s): R26.9 - Unspecified abnormalities of gait and mobility Category: Medical Plan Chronic left foot pain and paresthesias, since surgery in 2013. On exam, there is redness and swelling, raising suspicion for CRPS. Distribution of numbness suggestive of peroneal neuropathy, as seen on past EMGs. However, she might be having an acute tendinitis since Friday. Would like to treat/calm that down before we make the diagnosis for CRPS. She can take Aleve 500 mg b.i.d. for 7 days. Wear a lace-up ankle brace for at least 1-2 weeks or until swelling is better. Elevate and ice at home. Past EMG raised suspicion for peripheral neuropathy, also affecting right side. I wonder if we should repeat the EMG, do it myself, to confirm diagnosis. I agree with Dr. Schwab that this is not related to any knee issue. And I do not see any ongoing inflammation on left knee. I agree with Dr. Ospina that this is most likely unrelated to lumbar spine. Her symptoms appear to be focal, distal, rather than radicular. As for orthotics, I think she would need a more rigid shoe insert or a more rigid posterior AFO without hinge. I think rigidity with support her gait better so she is not slapping the foot down when she steps. Question footdrop, which is just obvious when she is walking, but not when she is sitting or even with supported standing. Her main issue is the pain and difficulty to walk and stand for prolonged periods. So we will see what we can do to support her and keep her functional. I would like to see her again in 2 weeks, see if the acute tendinitis has improved, and whether she does have symptoms of CRPS. Assessment and plan discussed with patient, and patient was agreeable. All questions were answered thoroughly. Total of 45 minutes spent today including chart review, results review, history taking, physical examination, discussion of assessment and plan, and coordination of care. Abril Gonzalez MD, MARTHA Board Certified, [place] [employer] and [employer] (ABPMR) Board Certified, [place] [employer] (ABEM) Coding Level of Care Code New Pt Level 4 (19904) Diagnoses Left foot pain M79.672 Gait disturbance R26.9
== END 2024-07-16 11:52 | disposition home or self-care (01) ==
PROVIDERS: PCP Physician Assistant; Visit Provider Physical Medicine & Rehabilitation
DX: M79.672 Pain in left foot (principal); R26.9 Unspecified abnormalities of gait and mobility
CPT/HCPCS: 99204

== ENCOUNTER 2024-08-05 10:40 | Outpatient (AMB) | payer BC, SELFPAY ==
--- NOTE | 2024-08-05 10:43 | MHC.OFFVIS ---
Intake Visit Reasons: OV - left foot pain Intake Note: Samina is a 59 year old female who presents today for a follow up of her left foot pain. Patient states she continues to have pain and is wanting to know what she can do to relief her pain. Allergies cephalexin [From KEFLEX] Allergy (Intermediate, Verified 08/05/24 10:50) RASH chlorhexidine [CHLORHEXIDINE] Allergy (Intermediate, Verified 08/05/24 10:50) ITCHY,RASH ibuprofen [IBUPROFEN] Allergy (Intermediate, Verified 08/05/24 10:50) RASH- PER H&P latex [LATEX] Allergy (Intermediate, Verified 08/05/24 10:50) RASH Medication List - Last Reconciled 08/05/24 by Abril Gonzalez MD albuterol sulfate 90 mcg/actuation 2 inhalations PO Q4H PRN budesonide 0.5 mg (2 mL) inhalation BID 30 days gddxqlexzy-luyimktj-jfussfawwo 160-9-4.8 mcg/actuation (Breztri Aerosphere) 2 inhalations inhalation BID 30 days cetirizine (All Day Allergy (cetirizine)) 10 mg PO DAILY PRN Dupixent Pen (dupilumab) 300 mg (2 mL) subcut Q2W NS epinephrine (EpiPen 2-Kali) 0.3 mg (0.3 mL) IM Q10M PRN 30 days fluticasone propionate 50 mcg/actuation 1 spray intranasal DAILY 30 days furosemide (Lasix) 20 mg PO DAILY PRN gabapentin 300 mg PO BEDTIME 30 days levalbuterol HCl 1.25 mg (3 mL) inhalation Q6H PRN levothyroxine 88 mcg PO DAILY 90 days montelukast 10 mg PO DAILY 90 days nebulizers As directed omeprazole 20 mg PO DAILY 3 months polymyxin B sulf-trimethoprim 10,000 unit- 1 mg/mL 1 drp ophthalmic (eye) QID 7 days roflumilast (Daliresp) 500 mcg PO DAILY 90 days rosuvastatin 5 mg PO DAILY 90 days triamcinolone acetonide 0.1% topical HPI Comments Details: Review of history and records: 2011: an MRI of left ankle showed EDL tenosynovitis. Subsequently underwent surgery by Dr. Culver for fusion and repair of posterior tibialis tendinitis. Gait was affected after surgery, walking more laterally on left foot as a compensation. Found also to have leg length discrepancy 2013: CT scan reported only 80-90% union on subtalar joint. MRI showed postsurgical changes, tendinopathy on peroneus brevis, Achillis tendinitis, edema on talofibular ligaments. 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 She was told that her right foot was also pronated, treated with orthotics and therapy. [facility]. Had another surgery for the malunion and peroneal tendinopathy; removal of some of the hardware, revision and repair. She had severe postoperative pain, treated with gabapentin. She was on a high cast for 3 months. When the cast was removed, she noted numbness from left knee downwards. This numbness has continued until today. Left leg/foot was weak, thought to be a footdrop, and she has been limping since then. 2014: EMG done by Dr. 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 There was some consideration for possible L4 radiculopathy but patient denies any back pain, denies sciatic symptoms, unless depending on positioning. Her left lower extremity symptoms are separate from any back pain. An ultrasound done at that time did not reveal any DVT. 2020: Patient had left MRI knee that reported meniscal tear. Underwent arthroscopic surgery by Dr. Slaughter. 2022: Saw Dr. Schwab for follow-up. Dr. Schwab did not think this is connected to left knee. Referred her to pain management for evaluation of lumbar radiculopathy. Patient saw Dr. Ospina who did not think this is lumbar radiculopathy. Lumbar x-rays were done but not MRI. Also same year, patient had another EMG, done by Dr. Mead, which reported peripheral neuropathy. On review of nerve conduction tables, sensory nerves tested showed small amplitudes but most of the peak latencies were normal. Patient has history of thyroid disorder. Drinks 1 glass of wine a day if ever. She takes vitamin-D and multivitamin supplements. No past history of diabetes, cancer, chemotherapy, HIV or hepatitis. Denies any history of hereditary neuropathy in the family. She had COVID in 2019 which exacerbated leg pains. Chronic steroid use due to asthma. She has chronic left leg pain and numbness. Poor or absent arches on both sides, even since childhood. Walks with a limp. She has had an AFO which is cut at the ankle with a hinge. She has had orthotics. She works full-time, could be on her feet all day. She tries to exercise, use the elliptical. As suspected from our 1st visit, she had an acute injury on left ankle. This was treated with naproxen and Tylenol. We also had her wear a lace-up ankle brace. Today left ankle is no longer swollen or red. However she continues to have chronic issues with pain especially when she is standing or walking. Left foot is smaller than the right, 9 and half shoe size on left while 10-,1/2 shoe size on right. Left ankle tends to roll laterally or varus. While the right ankle tends to roll medially. [facility] Medical History (Updated 07/14/24 @ 13:01 by Jose Oliveira PA-C) Sinusitis COVID-19 Asthma-COPD overlap syndrome Tachycardia Bronchitis Dyspnea Lower extremity edema Diastolic dysfunction [id number] syndrome PONV (postoperative nausea and vomiting) Asthma GERD (gastroesophageal reflux disease) Elevated cholesterol Thyroid disease Eczema Surgical History (Updated 07/16/24 @ 10:59 by TORSTEN Ribera) History of surgical removal of ganglion cyst H/O colonoscopy Hx of total hip arthroplasty History of ankle surgery Family History Father CVD (cardiovascular disease) Asthma Mother Breast cancer History of corneal transplant HTN (hypertension) Hypercholesterolemia Brother No problems noted. Brother No problems noted. Brother No problems noted. Sister No problems noted. Sister No problems noted. Sister No problems noted. Son No problems noted. Son No problems noted. Son No problems noted. Daughter No problems noted. Social History Household Members: Family Household Members Other:: spouse/son Housing: House Alcohol intake: current Alcohol intake frequency: a few times a month Patient Tobacco Use Status: Never used Tobacco e-Cigarette/Vaping Use: Never Used Second Hand Smoke Exposure: No service: No Current occupational status: employed Current occupational exposures/hazards: No Cognitive needs: No Hearing needs: No Vision needs: No Physical Exam Constitutional: Patient appears to be in no acute distress, well nourished and well developed. Patient was appropriately conversant and oriented. Good historian. MSK: Gait is antalgic, drags left foot. But when she is seated, I do not discern a lot footdrop, dorsiflexion is 5/5. Left foot is no longer swollen or red. No allodynia. No sensitivity to touch. No tenderness to touch even. No calf tenderness. No atrophy. Neurological: Jo?s negative bilaterally. Babinski was down going bilaterally. Clonus was negative. Results Reviewed Results Reviewed: As above Assessment & Plan Assessment & Plan (1) Left foot pain: Code(s): M79.672 - Pain in left foot Category: Medical (2) Gait disturbance: Code(s): R26.9 - Unspecified abnormalities of gait and mobility Category: Medical Plan Chronic left foot pain and paresthesias, since surgery in 2013. Distribution of numbness suggestive of peroneal neuropathy, as seen on past EMGs. Acute tendinitis is resolved. We talked about getting newer orthotics or inserts. I thought she would need a more rigid support for the left ankle as it tends to roll to the left side/laterally and also support dorsiflexion. I do not think she needs as much rigidity on the right side although should benefit from an insert that prevents it from rolling inwards. She has already gone through many different orthotic clinics in the area, except for 1 or 2. I personally made a call to [facility] in [place], spoke to their early morning babysitter and clinical science consultant Joleen Pearson. Joleen had good ideas just from our telephone conversation, possibly considering Monica type AFO or Skinny style AFO, depending on how much range she has in the left ankle. Having a smaller left foot would actually work towards her favor so that we can fit and AFO inside her shoe. Joleen can also make orthotic for the right foot that prevents rolling inward. We will discuss with patient if she wants to proceed with referral to [facility]. We also talked about referring her to [facility] who has a gait lab. Assessment and plan discussed with patient, and patient was agreeable. All questions were answered thoroughly. Abril Gonzalez MD, MARTHA Board Certified, [place] [employer] and [employer] (ABPMR) Board Certified, [place] [employer] Electrodiagnostic [employer] (ABEM) Coding Level of Care Code Est Pt Level 4 (03093) Diagnoses Left foot pain M79.672 Gait disturbance R26.9
== END 2024-08-05 11:19 | disposition home or self-care (01) ==
PROVIDERS: PCP Physician Assistant; Visit Provider Physical Medicine & Rehabilitation
DX: M79.672 Pain in left foot (principal); R26.9 Unspecified abnormalities of gait and mobility
CPT/HCPCS: 99213

== ENCOUNTER → 2024-08-05 10:40 | Outpatient (BNVA) | payer BC, SELFPAY | PROVIDERS: PCP Physician Assistant; Visit Provider Physical Medicine & Rehabilitation ==

== ENCOUNTER 2024-08-27 08:02 | Outpatient (REF) | payer BC, SELFPAY ==
--- OUTSIDE RECORDS SUMMARY | 2024-08-27 08:07 | XMS_ITS ---
Author Organization [facility] Address [address] [place] [address] Care Team Providers Care Clip Coater Name Role Phone Jorge Slaughter MD Primary Care Provider Susana Cook Unavailable [phone] REASON FOR VISIT new script for ortho Medications Medication SIG (Take, Route, Fr equency, Duration) Notes Start Date End Date Status Custom Orthotics as directed 05/06/2018 Active Encounters Encounter Location Date Provider Diagnosis [facility] [address] [place] [address] 03/18/2023 Susana Miranda Posterior tibial tendon dysfunction (PTTD) of right lower extremity M76.821 Assessments Encounter Date Diagnosis (ICD Code) Assessment Notes Treatment Notes Treatment Clinical Notes Section Notes 03/18/2023 Posterior tibial tendon dysfunction (PTTD) of right lower extremity (ICD-10 - M76.821) Plan Of Treatment Medication Medication Name Sig Start Date Stop Date Notes Custom Orthotics as directed 05/06/2018 Progress Notes * Samina ROJAS MDOB:[birth year] (58 yo F)Acc No.[id number]:03/18/2023 Patient:?Samina Rojas Bryant :1965???Age:58 Y???Sex:Female Address:[address] [place], [address] * Refills? Refill Custom Orthotics, 2, as directed, Refills=0 * true * Date:? Generated for Vandana whalen/Kelsey/Álvaroitting on:?08/27/2024 08:07 AM EST
--- OUTSIDE RECORDS SUMMARY | 2024-08-27 08:07 | XMS_ITS | Patient Health Record ---
[facility] Address [address] [place] [address] Care Team Providers Care Cream Maker Name Role Phone Jorge Slaughter MD Primary Care Provider Susana Cook Unavailable [phone] Allergies Allergen (clinical drug ingredient) Drug/Non Drug Allergy documented on EMR Reaction Allergy Type Onset Date Status Latex Unknown Drug Allergy Active Reason For Referral No Information Medications Medication SIG (Take, Route, Frequency, Duration) Notes Start Date End Date Status Custom Orthotics as directed 09/15/2019 Active OT Refurbishment Refurbish with full length extensions 09/15/2019 Active Custom Orthotics as directed 05/06/2018 Active ProAir HFA Active AFO-Hinged as directed Wear Daily for as needed 05/06/2018 Not-Taking AFO-Hinged as directed Wear Daily for as needed 05/06/2018 Not-Taking Levothyroxine Sodium Active Cephalexin 500 MG 1 tablet Orally Twice a day for 10 day(s) Not-Taking albuterol Active predniSONE Not-Takin g Aleve PRN Active Keflex 500 MG 1 capsule Orally every 12 hrs for 7 days 03/05/2018 Not-Taking Omeprazole 20 MG Orally Act hardik Medrol 4 MG as directed Orally 02/11/2018 Not-Taking Work Note . . . Patient can not walk long distances, can use [employer] for work and limit standing/walking until further notice 04/20/2018 Active Hydrocortisone 1 % 1 application to affected area Externally Twice a day to affected areas on feet for 30 days 02/11/2018 Active Amoxicillin-Pot Clavulanate Not-Taking Physical Therapy . . . 2-3x/week for 3-4 weeks 04/29/2018 Not-Taking AFO-Hinged as directed Wear Daily for as needed 04/15/2018 Not-Taking Walking Boot/Pneumatic As directed Wear Daily for Until further notice 03/27/2018 Not-Taking Breztri Aerosphere 160-9-4.8 MCG/ACT 2 puffs Inhalation Acti ve Dupixent injection every two weeks Active Feldene 20 MG 1 capsule with food Orally Once a day for 14 days 05/08/2021 Active Atorvastatin Calcium 20 MG 1 tablet Orally Once a day Active Symbicort 2 puffs Twice a day Not-Taking Spiriva HandiHaler N ot-Taking Xolair Not-Taking Amoxicillin-Pot Clavulanate 875 875-125 MG one tab Orally every 12 hrs for 3 days 01/03/2021 Not-Taking Flagyl Not-Taking Simvastatin Not-Taki ng Immunizations Vaccine Route Administration Date Status Comme nts COVID-19 Pfizer [employer] Vaccine Unknown 07/25/2020 Administered Second Dose: Social History Tobacco Use: Social History Observation Description Date Details (start date - stop date) Never Smoker NA - NA Tobacco Use/Smoking Question Answer Notes Are you a: nonsmoker Additional Findings: Tobacco Non-User Current no n-smoker Alcohol Screen Question Answer Notes Did you have a drink contain ing alcohol in the past year? Yes How often did you have a dri nk containing alcohol in the past year? 2 to 3 times a week (3 points) How often did you have 6 or more drinks on one occasion in the past year? Weekly (3 points) Points 6 Interpretation Positive Tobacco use other than smoking: Question Answer Notes Are you an other tobacco user? No Problems Problem Type SNOMED Code ICD Code Onset Dates Problem Status W/U Status Risk Notes Problem 45554096 Primary osteoarthritis, right ankle and foot (M19.071) Active confirmed Problem 997903744192661 Neuritis of left foot (G57.92) Active confirmed Problem 781225603869956 Osteoarthritis o f right ankle and foot (M19.071) Active confirmed Problem 87293532 Osteoarthritis o f left ankle and foot (M19.072) Active confirmed Problem 30778429 Pes cavus (Q66.7) Active confirmed Plan Of Treatment Pending Test Test Name Order Date X ray : Foot, left 3V 04/22/2018 X ray : Foot, left 3V 05/08/2021 X ray : Foot, left 3V 12/04/2021 X ray : Foot, right 3V 12/04/2021 X ray : Foot, right 3V 03/10/2018 X ray : Foot, right 3V 05/08/2021 97334- Debride <25 sq cm 02/06/2018 [id number] I&D ABSCESS- SIMPLE,SINGLE 018 Insurance Providers Payer Name Payer Address Payer Phone Subscriber Number Group Number Insured Name Patient Relationship to Insured Coverage Start Date Coverage End Date [facility] [address] [place] [address] [id number] Samina Rojas Self - patient is the insured Medical (General) History Medical History History ICD Code Back,Hip,and Knee pain Cholesterol Lung disease Eczema Reflux ( GERD) Thyroid disorder Chicken pox Joint implants/screws Surgical History Surgery Date(Month/Year) right hip replacement 04/2017 left foot surgery vaginal sling
[2024-08-27 08:36] LABS: Estimated Average Glucose 111 mg/dL; Hemoglobin A1C 118.2766 umol/L; Hemoglobin A1c % 5.5 % (<6.0); Total Hemoglobin (HGBA1C) 3220.0516 umol/L
[2024-08-27 09:15] LABS: Alanine Aminotransferase 32 U/L (0-31); Albumin Level 4.2 g/dL (3.5-5.0); Alkaline Phosphatase 71 U/L (39-117); Anion Gap 14 (12-20); Aspartate Amino Transferase 27 U/L (5-31); Bilirubin Total 0.4 mg/dL (0.0-1.0); Blood Urea Nitrogen 9 mg/dL (9-16); Calcium 9.7 mg/dL (8.4-10.2); Carbon Dioxide 23 mmol/L (22-29); Chloride 108 mmol/L (96-108); Cholesterol 144 mg/dL (<200); Estimated Glomerular Filt Rate > 60; Glucose Fasting 112 mg/dL (60-99); HDL Cholesterol 59 mg/dL (>40); LDL Cholesterol Calculated 66 mg/dL (<100); Potassium 3.7 mmol/L (3.3-5.1); Sodium 141 mmol/L (135-145); Total Protein 7.4 g/dL (6.5-8.0); Triglycerides 98 mg/dL (<150)
[2024-08-27 09:37] LABS: TSH reflex Free T4 2.18 uIU/mL (0.32-4.0)
== END 2024-08-27 08:03 | disposition home or self-care (01) ==
LOC: HO.LAB 08:02
PROVIDERS: PCP Physician Assistant; Visit Provider Physician Assistant
DX: E03.9 Hypothyroidism, unspecified (principal); R73.09 Other abnormal glucose; E78.2 Mixed hyperlipidemia
CPT/HCPCS: 36415; 80053; 80061; 83036; 84443

== ENCOUNTER 2024-08-30 14:52 | Outpatient (AMB) | payer BC, SELFPAY ==
--- NOTE | 2024-08-30 15:08 | A.OFFPC_ITS ---
Vital Signs 08/30/24 15:11 Height 5 ft 5 in Weight 214 lb BMI 35.6 BP 162/84 H Blood Pressure Location Lt brachial Position Sitting Pulse 76 Pulse Source Pulse Oximeter Temp 97.1 F Temp Source Temporal Artery Scan Pulse Oximetry (%) 98 Oxygen Delivery Method Room Air Intake Visit Reasons: f/u HTN/ HLD/ IGM Toggle Press Operator Required: No Accompanied by: Self / Same As Patient Allergies cephalexin [From KEFLEX] Allergy (Intermediate, Verified 08/30/24 15:17) RASH chlorhexidine [CHLORHEXIDINE] Allergy (Intermediate, Verified 08/30/24 15:17) ITCHY,RASH ibuprofen [IBUPROFEN] Allergy (Intermediate, Verified 08/30/24 15:17) RASH- PER H&P latex [LATEX] Allergy (Intermediate, Verified 08/30/24 15:17) RASH Medication List - Last Reconciled 08/30/24 by Jose Oliveira PA-C albuterol sulfate 90 mcg/actuation 2 inhalations PO Q4H PRN budesonide 0.5 mg (2 mL) inhalation BID 30 days qsalziivig-aofjrsqq-lrnksmecxa 160-9-4.8 mcg/actuation (Breztri Aerosphere) 2 inhalations inhalation BID 30 days cetirizine (All Day Allergy (cetirizine)) 10 mg PO DAILY PRN Dupixent Pen (dupilumab) 300 mg (2 mL) subcut Q2W NS epinephrine (EpiPen 2-Kali) 0.3 mg (0.3 mL) IM Q10M PRN 30 days fluticasone propionate 50 mcg/actuation 1 spray intranasal DAILY 30 days furosemide (Lasix) 20 mg PO DAILY PRN gabapentin 300 mg PO BEDTIME 30 days leg brace (Ankle Brace) [facility], [address] [place] [id number] PLEASE SCHEDULE WITH COURTNEY SALGUERO (I've already spoken to Courtney about this case) for left AFO all style or renata style for right orthotic or shoe insert levalbuterol HCl 1.25 mg (3 mL) inhalation Q6H PRN levothyroxine 88 mcg PO DAILY 90 days montelukast 10 mg PO DAILY 90 days nebulizers As directed omeprazole 20 mg PO DAILY 3 months polymyxin B sulf-trimethoprim 10,000 unit- 1 mg/mL 1 drp ophthalmic (eye) QID 7 days roflumilast (Daliresp) 500 mcg PO DAILY 90 days rosuvastatin 5 mg PO DAILY 90 days triamcinolone acetonide 0.1% topical Tobacco use date assessed: 08/30/24 Dental Screening Dental Screen Date: 08/30/24 Did you have a dental visit in the last 12 months?: Yes Did you have a dental problem in the last 6 months where you did not have access to dental care?: No Was dental information given to patient?: Patient has dentist HPI f/u HTN/ HLD/ IGM HPI Details Patient is a 59-year-old female here today for a follow-up visit.? Patient's past medical history significant for moderate persistent asthma, hypothyroidism, eczema, allergic rhinitis, obesity. Concern-->today's blood pressure in office elevated. She reports that recent blood donation her blood pressure is 130 systolic. She is not interested in starting blood pressure medication at this time and would like to continue monitoring and working on lifestyle modifications. CHRONIC MEDICAL CONDITION--> Neuropathy lower extremities: Most recent EMG testing showing moderate to severe neuropathy worsening left lower extremity. Not clear if this is related to previous surgery verses lumbar spine disease. She does have an abnormal gait to which she wears orthotics to help stabilize her gait. She has started in pulmonary rehab for her asthma and plans to be more physically active. She is discouraged that she has not lost much weight and is interested in injectable therapy to help her lose weight. She has followed up with Orthopedics in [place] whom recommend cortisone injections. .. Moderate persistent asthma/ Allergies: (? has a previous history of severe COVID infection leading? to 3 months out of work). 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 steroids.? Has been started on budesonide inhaled nebulizer treatments.? She is though feels as effective as she would like.. She continues to have shortness of breath on exertion She is receiving allergy injections and Dupixent which has been somewhat effective. Recently had allergy injections and has localized reactions. .. Hypothyroidism: Most recent TSH is stable. Continues on levothyroxine 88 mcg which has been effective. .. Hyperlipidemia:? Recent lipid panel showing much improved total cholesterol and LDL. L. She continues on statin therapy without side effect. .. Gait disturbance: Has recently seen a grain unloader machine whom recommended seeing an orthotic specialist for evaluation in our orthotics to help her with her gait disturbance. [facility] Medical History (Updated 08/31/24 @ 07:52 by Jose Oliveira PA-C) Sinusitis COVID-19 Asthma-COPD overlap syndrome Tachycardia Bronchitis Dyspnea Lower extremity edema Diastolic dysfunction [id number] syndrome PONV (postoperative nausea and vomiting) Asthma GERD (gastroesophageal reflux disease) Elevated cholesterol Thyroid disease Eczema Surgical History History of surgical removal of ganglion cyst H/O colonoscopy Hx of total hip arthroplasty History of ankle surgery Family History Father CVD (cardiovascular disease) Asthma Mother Breast cancer History of corneal transplant HTN (hypertension) Hypercholesterolemia Brother No problems noted. Brother No problems noted. Brother No problems noted. Sister No problems noted. Sister No problems noted. Sister No problems noted. Son No problems noted. Son No problems noted. Son No problems noted. Daughter No problems noted. Social History Household Members: Family Household Members Other:: spouse/son Housing: House Alcohol intake: current Alcohol intake frequency: a few times a month Patient Tobacco Use Status: Never used Tobacco e-Cigarette/Vaping Use: Never Used Second Hand Smoke Exposure: No service: No Current occupational status: employed Current occupational exposures/hazards: No Cognitive needs: No Hearing needs: No Vision needs: No Questionnaire PHQ-9 Over the last 2 weeks, how often have you been bothered by any of the following problems? 1. Little interest or pleasure in doing things: not at all 2. Feeling down, depressed, or hopeless: not at all 3. Trouble falling or staying asleep, or sleeping too much: not at all 4. Feeling tired or having little energy: not at all 5. Poor appetite or overeating: not at all 6. Feeling bad about yourself - or that you are a failure or have let yourself or your family down: not at all 7. Trouble concentrating on things, such as reading the newspaper or watching television: not at all 8. Moving or speaking so slowly that other people could have noticed. Or the opposite - being so fidgety or restless that you have been moving around a lot more than usual: not at all 9. Thoughts that you would be better off or of hurting yourself in some way: not at all Total score: 0 Depression Screening Interpretation: Negative Depression Screening Done: Yes 87505 - PHQ-9 Billing: Yes Source: Developed by Drs. Ruslan Crespo, Shayna Otero, Bart Butler and colleagues, with an educational jess from [employer]. Thrive Questionnaire Date Thrive assessed: 08/30/24 I am a: Patient What is your living situation today?: I have a steady place to live Within the past 12 months, did the food you bought not last and you didn't have the money to get more?: Never true Within the past 12 months, did you worry whether your food would run out before you got money to buy more?: Never true Do you have trouble paying for medicines?: No Do you have trouble getting transportation to medical appointments?: No Do you have trouble paying your heating and electricity bill?: No Do you have trouble taking care of your child, family member or friend?: No Do you have trouble with day-to-day activities such as bathing, preparing meals, shopping, managing finances, etc.?: No Are you currently unemployed and looking for a job?: No Are you interested in more education?: No Please select the resources that you would like help with: None Currently or been in a relationship where the following occur: No concerns reported THRIVE Score: 0 AUDIT C Alcohol Use Questionnaire (AUDIT-C) 1. How often do you have a drink containing alcohol?: Monthly or less 2. How many drinks containing alcohol do you have on a typical day when you are drinking?: 1 or 2 3. How often do you have six or more drinks on one occasion?: Less than monthly Total Score: 2 MARLYS-7 AMB Questionnaire MARLYS-7 Date MARLYS - 7 assessed: 08/30/24 Feeling nervous, anxious, or on edge: 0 = Not at all Not being able to stop or control worryin = Not at all Worrying too much about different things: 0 = Not at all Trouble relaxin = Not at all Being so restless that it is hard to sit still: 0 = Not at all Becoming easily annoyed or irritable: 0 = Not at all Feeling afraid as if something awful might happen: 0 = Not at all Total MARLYS-7 score (0-4 normal; 5-9 mild; 10-14 moderate; 15-21 severe): 0 Source: Developed by Drs. Ruslan Crespo, Shayna Otero, Bart Butler and colleagues, with an educational jess from [employer]. MARLYS-7 Assessment Billing MARLYS-7 Assessment Tool: MARLYS-7 Assessment 84834 Review of Systems Const Denies headache(s) Eyes Denies loss of vision ENT Denies vertigo, Denies dizziness, Denies headache(s) and Denies sore throat Card Denies chest pain, Denies leg edema and Denies lightheadedness Resp Denies cough, Denies hemoptysis and Denies wheezing GI Denies abdominal pain, Denies melena, Denies constipation, Denies diarrhea and Denies vomiting Denies urinary frequency, Denies dysuria and Denies urinary urgency Musc Denies arthralgias, Denies joint swelling, Denies numbness and Denies tingling Neuro Denies Abnormal speech present, Denies behavioral changes, Denies vertigo, Denies dizziness, Denies headache(s), Denies loss of vision, Denies memory loss, Denies numbness and Denies tingling Psych Denies anxiety, Denies behavioral changes, Denies depression, Denies memory loss and Denies panic attacks Ovidio/Lymph Denies easy bleeding and Denies easy bruising Aller/Immun Denies wheezing Physical exam (Primary Care) Vital Signs: Last Vital Signs Temp 97.1 F 08/30/24 15:11 Pulse 76 08/30/24 15:11 BP 162/84 H 08/30/24 15:11 Pulse Ox 98 08/30/24 15:11 Oxygen Delivery Method Room Air 08/30/24 15:11 BMI result Body Mass Index 35.6 Tobacco/Smoking Status: Tobacco use Status Tobacco use date assessed 08/30/24 08/30/24 15:09 Patient Tobacco Use Status Never used Tobacco 08/30/24 15:09 e-Cigarette/Vaping Use Never Used 08/30/24 15:09 PHQ-9: PHQ-9 Score PHQ-9: Total score 0 08/30/24 15:20 Depression Screening Interpretation: Negative Thrive Assessment: Date of Thrive Assessment Date Thrive assessed 08/30/24 08/30/24 15:09 Currently or been in a relationship where the following occur: No concerns reported Const General: healthy appearing, no acute distress, alert and awake Nutritional Appearance: well nourished Orientation/consciousness: oriented to person, oriented to place and oriented to time HENMT Ears: TM's normal bilaterally General nose exam: Normal nasal mucous membranes and turbinates present Eyes Conjunctivae: conjunctivae normal Sclerae: sclerae normal Pupils: Equal, round and reactive pupils present Neck Neck: Yes no lymphadenopathy and Yes no JVD Thyroid: Thyroid normal Carotids: no bruits Resp Effort & Inspection: normal respiratory effort and not tachypneic Auscultation: no crackles, no rales, no rhonchi and no wheezes Cardio Rate: regular rate Rhythm: regular rhythm Heart sounds: no murmurs and normal S1 and S2 GI Palpation (GI): Soft to palpation, nontender, no hepatomegaly and no splenomegaly Auscultation: normal bowel sounds Skin General skin exam: no rashes or lesions noted and dry skin Neuro General: oriented to person, oriented to place and oriented to time Cranial nerves: Yes Equal, round and reactive pupils present Speech: No Abnormal speech present Gait exam (Neuro): Normal gait present Motor exam (neuro): no tremor noted Extrem Right upper extremity: full ROM Left upper extremity: full ROM Right lower extremity: full ROM; no edema Left lower extremity: full ROM; no edema Psych Mental Status: mental status grossly normal Speech and movement: Normal speech and movement present Affect: normal affect Attitude: cooperative Thought process: Normal thought process present Coding Level of Care Code Est Pt Level 4 (43665) Diagnoses Asthma-COPD overlap syndrome J44.89 Impaired glucose metabolism R73.09 Mixed hyperlipidemia E78.2 Hyperlipidemia type: mixed hyperlipidemia Essential hypertension I10 Microcytic anemia D50.9 Additional Codes MARLYS-7 Assessment Billing - MARLYS-7 Assessment Tool: MARLYS-7 Assessment 06055 ([id number]) PHQ-9 - 90362 - PHQ-9 Billing: Yes ([id number]) Assessment & Plan Assessment & Plan (1) Asthma-COPD overlap syndrome: Code(s): J44.89 - Other specified chronic obstructive pulmonary disease Category: Medical Plan: Patient continues to follow pulmonology. She has been started on Daliresp which seems to have been helping her pulmonary status. She has been on a lot of steroids due to allergic reactions (2) Impaired glucose metabolism: Code(s): R73.09 - Other abnormal glucose Category: Medical Plan: Most recent fasting blood sugar has improved. Has not not been on corticosteroids recently. (3) Hyperlipidemia: Code(s): E78.5 - Hyperlipidemia, unspecified Category: Medical Qualifiers: Hyperlipidemia type: mixed hyperlipidemia Qualified Code(s): E78.2 - Mixed hyperlipidemia Plan: Most recent lipid panel has much improved. Now off of corticosteroids. Will continue to follow lipid panel to ensure stable. Goal LDL to be below 130 (4) Essential hypertension: Code(s): I10 - Essential (primary) hypertension Category: Medical Plan: Patient's blood pressure elevated today in office. She reports her blood pressures at home and at work has been normal below 140/90 Advised to do home blood pressure monitoring more regularly and contact us back if consistently above 140/90. Will consider blood pressure medication. (5) Microcytic anemia: Code(s): D50.9 - Iron deficiency anemia, unspecified Category: Medical Plan: Will continue to follow CBC Orders: Orders Complete Blood Count no Diff 08/30/24 K21.9 - Gastro-esophageal reflux disease without esophagitis Microalbumin, Random (w Creat) 08/30/24 I10 - Essential (primary) hypertension TSH reflex Free T4 08/30/24 E03.9 - Hypothyroidism, unspecified Lipid Panel 08/30/24 E78.2 - Mixed hyperlipidemia Comprehensive [place]. Panel Fast 08/30/24 E78.2 - Mixed hyperlipidemia IRON PROFILE 08/30/24 D50.9 - Iron deficiency anemia, unspecified
[2024-08-30 15:11] VITALS: BP 162/84; PULSE 76; TEMP 36.2; O2SAT 98; BMI 35.6
--- OUTSIDE RECORDS SUMMARY | 2024-08-30 17:42 | XMS_ITS | Patient Health Record ---
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 Welder Apprentice Name Role Phone Jorge Slaughter MD Primary Care Provider Susana Cook Unavailable [phone] Allergies Allergen (clinical drug ingredient) Drug/Non Drug [...] can not walk long distances, can use Corrugator for work and limit standing/walking until further [...] Administration Date Status Comme nts COVID-19 Pfizer BioNTAdreal Vaccine Unknown 07/25/2020 Administered Second Dose: Social [...] Problem Status W/U Status Risk Notes Problem 53092590 Primary osteoarthritis, right ankle and foot (M19.071) Active confirmed Problem 950897318489190 Neuritis of left foot (G57.92) Active confirmed Problem 008003802129082 Osteoarthritis o f right ankle and foot (M19.071) Active confirmed Problem 79829120 Osteoarthritis o f left ankle and foot (M19.072) Active confirmed Problem 46611457 Pes cavus (Q66.7) Active confirmed Plan Of Treatment Pending Test Test Name Order Date X ray : Foot, left 3V 04/22/2018 X ray : Foot, left 3V 05/08/2021 X ray : Foot, left 3V 12/04/2021 X ray : Foot, right 3V 12/04/2021 X ray : Foot, right 3V 03/10/2018 X ray : Foot, right 3V 05/08/2021 69652- Debride <25 sq cm 02/06/2018 47159 I&D ABSCESS- SIMPLE,SINGLE 018 Insurance Providers Payer Name Payer Address Payer Phone Subscriber Number Group Number Insured Name Patient Relationship to Insured Coverage Start Date Coverage End Date [facility] [address] [place] [address] [id number] Samina Rojas Self - patient is the insured Medical (General) History Medical History History ICD Code Back,Hip,and Knee pain Cholesterol Lung disease Eczema Reflux ( GERD) Thyroid disorder Chicken pox Joint implants/screws Surgical History Surgery Date(Month/Year) right hip replacement 04/2017 left foot surgery vaginal sling
--- OUTSIDE RECORDS SUMMARY | 2024-08-30 17:42 | XMS_ITS ---
Author Organization [facility] Address [address] [place] [address] Care Team Providers Care Real Estate Sales Associate Name Role Phone Jorge Slaughter MD Primary Care Provider Susana Cook Unavailable [phone] REASON FOR VISIT new script for ortho Medications Medication SIG (Take, Route, Fr equency, Duration) Notes Start Date End Date Status Custom Orthotics as directed 05/06/2018 Active Encounters Encounter Location Date Provider Diagnosis [facility] [address] [place] [address] 03/18/2023 Susana Miranda Posterior tibial tendon dysfunction [...] Samina ROJAS MDOB:[birth year] (58 yo F)Acc No.[id number]:03/18/2023 Patient:?Samina Rojas Bryant :1965???Age:58 Y???Sex:Female Address:[address] [place], [address] * Refills? Refill Custom Orthotics, 2, as directed, Refills=0 * true * Date:? Generated for Vandana whalen/Kelsey/Álvaroitting on:?08/30/2024 05:42 PM EST
== END 2024-08-30 15:36 | disposition home or self-care (01) ==
PROVIDERS: PCP Physician Assistant; Visit Provider Physician Assistant
DX: J44.89 Other specified chronic obstructive pulmonary disease (principal); R73.09 Other abnormal glucose; E78.2 Mixed hyperlipidemia; I10 Essential (primary) hypertension; D50.9 Iron deficiency anemia, unspecified

== ENCOUNTER → 2024-08-30 14:52 | Outpatient (BNVA) | payer BC, SELFPAY | PROVIDERS: PCP Physician Assistant; Visit Provider Physician Assistant | DX: J44.89 Other specified chronic obstructive pulmonary disease (principal); R73.09 Other abnormal glucose; E78.2 Mixed hyperlipidemia; I10 Essential (primary) hypertension; D50.9 Iron deficiency anemia, unspecified | CPT/HCPCS: 96127 ==

== ENCOUNTER 2024-12-07 13:08 | Outpatient (AMB) | payer BC, SELFPAY ==
[2024-12-07 13:11] VITALS: BP 140/78; PULSE 102; O2SAT 97
--- NOTE | 2024-12-07 13:11 | MHC.OFFVIS ---
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 Her course was complicated with bilateral pneumonia. She stayed home she did not want to be hospitalized. Ever since then her respiratory symptoms have not been the same. She has been noticing increasing shortness of breath even with minimal activity moderate severity. She could not return to work for several months after developing COVID due to her significant shortness of breath. In addition to that she has noted increasing heart rate with any activity. She did undergo an echocardiogram which was normal. The patient had allergy testing done with significant allergies and elevated IgE. The patient has not use any biologic therapy. At this point will try to maximize respiratory therapy in then reassess the need for biologic therapy. Also, recently she started developing some chest tightness and pressure. She went to her primary care who requested a chest x-ray. The x-ray demonstrated no acute disease. However her symptoms got worse she went to the ED which she has additional evaluation and blood work. Her D-dimer was below 200 which is reassuring. She was given a presumptive diagnosis of pleurisy. Currently chest discomfort has improved she currently does not have any discomfort at this time. 04/24/2023 the patient is here for pulmonary follow-up visit. Since we last spoke she is been participating in pulmonary rehabilitation. This has been helpful and beneficial. Although she is been getting some knee pains and she will be seeing orthopedics Soon. The patient continues on her current respiratory therapy with good effect. She continues with biologic therapy, Dupixent without any adverse effects. Denies any eczema. Recently she did get allergy shots and she did have significant reaction. Therefore she will follow-up with her press leader closely. She was given a dose of Kenalog because of the significant adverse reaction to the allergy shots. Respiratory gr the patient is stable on current regimen. The appears that the tachycardia has been improving which is reassuring. Likely sequelae from her COVID-19 infection. 10/23/2023 the patient is here for a pulmonary follow-up the patient has been doing fairly well from a respiratory status. Continues on the Breztri inhaler. Appears to be affecting beneficial. She rarely has to use her rescue inhaler. Does not 2 times week. She has been having issues with allergies. Having significant conjunctivitis issues and allergic reactions to her allergy shots. The Dupixent injection appears to be very affecting beneficial for her. She has not required significant amount of steroids. Is really calm down her atopic dermatitis and her asthma. She is going to try to cut down on the inhaler some. No recent imaging studies to review. She is still participating in pulmonary rehabilitation. This has been affecting beneficial. Will continue with the current respiratory regimen although she will cut down any inhalers. She will follow-up in 6 months or sooner if any issues arise. 02/05/2024 the patient is here for a pulmonary follow-up visit. The patient has been having hard time with her breathing. Apparently she had a bee sting had a significant allergic reaction. Then after that she had a the inability to start her allergy shots. She has been with the allergy shots for now more than 2 weeks. She went to see her press leader who felt that she was not moving a lot of air she had a chest x-ray done. It was done at [facility] and was no acute disease per report. The patient is still on 60 mg of prednisone. She does have 60 mg sometime next week. Feels like there is some pressure in the chest. She still has some wheezing on examination. She feels like she has a cough difficult to expectorate phlegm. Does not feel like she is having any infection. She does have a flutter valve and she is trying to the nebulizer about 3 times a day. Although she still does not feel great. The Dupixent injections have been very helpful for her. We did talk about different therapies including Tezspire but I do not believe is a good option for her right now specially with a history of eczema. We did talk about alternative therapies to prednisone including theophylline. She did take it in the past. The patient had some headaches with a. I did explain to her the theophylline could be given a lower dose and can help facilitate decrease prednisone use. In addition to the Daliresp will be a good option for her. She does have chronic bronchitis based on her symptoms. She is requiring a lot of prednisone. A PD4 inhibitor will help decrease her prednisone needs and hopefully help him with his chest congestion. She can not started low-dose and then workup to the therapeutic dose of having mcg. 07/09/2024 the patient is here for a pulmonary follow-up visit. Overall she is doing well. She is tolerating the Daliresp 500 mcg dose very well. She is also using all her respiratory medications with good effect. Her major complaint is nasal congestion. But right now she does not want to take additional medications for. She does have 2 dogs at home that are visiting and she feels that that is the reason for her symptoms. She did get a noticed that her Dupixent may not be covered fully this year. She is contemplating her options. I did give information about Tezspire as this is an option for her. Although I do believe that Dupixent as a better option for her. The patient has been tolerating her respiratory medicines. Overall she is doing well she is exercising regularly. Send this time will continue with current regimen. The patient follow-up in 6 months. If she has any issues prior to that she will call for an earlier assessment. 12/07/2024 the patient is here for pulmonary follow-up visit. Overall she is doing well. She continues on respiratory therapy as prescribed. She does have increased dyspnea on exertion. [id number] severity. Most likely related to the weather changes. She can try using the albuterol prior to exercise however usually can she complains of tachycardia from it. She continues on Dupixent seems to be working very well for her. She also sees the press leader. No recent imaging studies to review. The patient otherwise doing well will follow-up in a 6 months. If she has any worsening dyspnea symptoms she will call for further evaluation. 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 Brother No problems noted. Brother No problems noted. Sister No problems noted. Sister No problems noted. Sister No problems noted. Son No problems noted. Son No problems noted. Son No problems noted. Daughter No problems noted. Social History Household Members: Family Household Members Other:: spouse/son Housing: House Alcohol intake: current Alcohol intake frequency: a few times a month Patient Tobacco Use Status: Never used Tobacco e-Cigarette/Vaping Use: Never Used Second Hand Smoke Exposure: No service: No Current occupational status: employed Current occupational exposures/hazards: No Cognitive needs: No Hearing needs: No Vision needs: No Review of Systems Const Denies chills, Reports fatigue and Denies night sweats Eyes Denies diplopia, Reports irritation, Reports itchy eyes, Denies loss of peripheral vision, Denies loss of vision, Denies eye pain, Denies seeing flashes, Denies photophobia and Denies tunnel vision ENT Denies change in voice, Denies lip swelling, Denies mouth pain, Reports nasal congestion, Reports nasal discharge and Denies tongue swelling Card Reports chest pain, Reports leg edema, Denies palpitations and Reports dyspnea on exertion Resp Denies change in phlegm color, Denies chest congestion, Reports cough, Denies pain on inspiration, Reports dyspnea on exertion and Denies wheezing GI Denies abdominal pain Musc Denies no additional complaints Skin/Breast Reports rash Neuro Denies Neuro-related abnormal movements and Denies loss of vision Psych Denies no additional complaints Endo Reports fatigue and Denies palpitations Ovidio/Lymph Denies easy bleeding and Denies lymphadenopathy Aller/Immun Reports itchy eyes, Denies lip swelling, Denies tongue swelling and Denies wheezing Physical Exam Vital Signs: Last Vital Signs Pulse 102 H 12/07/24 13:11 BP 140/78 H 12/07/24 13:11 Pulse Ox 97 12/07/24 13:11 Oxygen Delivery Method Room Air 12/07/24 13:11 Const General: alert and awake Orientation/consciousness: patient oriented x3 HEENT Head: Yes normocephalic and Yes atraumatic Eyes EOM: EOMs intact bilaterally Direct Ophthalmoscopy: No photophobia Neck Neck: Yes normal visual inspection, Yes full ROM and Yes no lymphadenopathy Chest Chest palpation & inspection: normal inspection of the chest Resp Effort & Inspection: normal respiratory effort Auscultation: clear to auscultation bilaterally and no wheezes Cardio Rate: tachycardic Rhythm: regular rhythm Heart sounds: S1 normal heart sound present and S2 normal heart sound present GI Palpation (GI): Soft to palpation and nontender Auscultation: normal bowel sounds Skin General skin exam: turgor normal Rashes: no rashes Neuro General: patient oriented x3 Extrem General: Yes edema Psych Appearance: grossly normal Affect: normal affect Attitude: cooperative Assessment & Plan Assessment & Plan (1) Severe persistent allergic asthma: Code(s): J45.50 - Severe persistent asthma, uncomplicated Category: Medical (2) Allergic rhinitis: Code(s): J30.9 - Allergic rhinitis, unspecified Category: Medical Qualifiers: Allergic rhinitis seasonality: non-seasonal Allergic rhinitis trigger: fungal spores Qualified Code(s): J30.89 - Other allergic rhinitis (3) Eczema: Code(s): L30.9 - Dermatitis, unspecified Category: Medical Qualifiers: Eczema type: flexural Qualified Code(s): L20.82 - Flexural eczema (4) Dyspnea: Code(s): R06.00 - Dyspnea, unspecified Category: Medical Qualifiers: Dyspnea type: dyspnea on exertion Qualified Code(s): R06.09 - Other forms of dyspnea (5) Lower extremity edema: Code(s): R60.0 - Localized edema Category: Medical (6) Asthma-COPD overlap syndrome: Code(s): J44.89 - Other specified chronic obstructive pulmonary disease Category: Medical Plan continue Breztri 2 puffs twice a day, decrease to 1puff BID continue Dupixent every 2 weeks continue nasal therapy along with nasal rinsing short-acting beta agonist as needed continue singular at nighttime Daliresp 500mcg F/U with allergy F/U 6 months Coding Level of Care Code Est Pt Level 4 (77334) Complex EM visit Add On G2211 Diagnoses Severe persistent allergic asthma J45.50 Non-seasonal allergic rhinitis due to fungal spores J30.89 Allergic rhinitis seasonality: non-seasonal Allergic rhinitis trigger: fungal spores Flexural eczema L20.82 Eczema type: flexural Dyspnea on exertion R06.09 Dyspnea type: dyspnea on exertion Lower extremity edema R60.0 Asthma-COPD overlap syndrome J44.89 Time Spent (min) 16
--- OUTSIDE RECORDS SUMMARY | 2024-12-07 15:28 | XMS_ITS | Patient Health Record ---
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 and limit standing/walking until further [...] Administration Date Status Comme nts COVID-19 Pfizer BioNTExoprise Vaccine Unknown 07/25/2020 Administered Second Dose: Social [...] Problem Status W/U Status Risk Notes Problem 83167199 Primary osteoarthritis, right ankle and foot (M19.071) Active confirmed Problem [id number] Neuritis of left foot (G57.92) Active confirmed Problem [id number] Osteoarthritis o f right ankle and foot (M19.071) Active confirmed Problem 43562561 Osteoarthritis o f left ankle and foot (M19.072) Active confirmed Problem 28476762 Pes cavus (Q66.7) Active confirmed Plan Of Treatment Pending Test Test Name Order Date X ray : Foot, left 3V 04/22/2018 X ray : Foot, left 3V 05/08/2021 X ray : Foot, left 3V 12/04/2021 X ray : Foot, right 3V 12/04/2021 X ray : Foot, right 3V 03/10/2018 X ray : Foot, right 3V 05/08/2021 30479- Debride <25 sq cm 02/06/2018 [id number] I&D ABSCESS- SIMPLE,SINGLE 018 Insurance Providers Payer Name Payer Address Payer Phone Subscriber Number Group Number Insured Name Patient Relationship to Insured Coverage Start Date Coverage End Date [facility] [address] [place] [address] [phone] [id number] Samina Rojas Self - patient is the insured Medical (General) History Medical History History ICD Code Back,Hip,and Knee pain Cholesterol Lung disease Eczema Reflux ( GERD) Thyroid disorder Chicken pox Joint implants/screws Surgical History Surgery Date(Month/Year) right hip replacement 04/2017 left foot surgery vaginal sling
== END 2024-12-07 13:38 | disposition home or self-care (01) ==
LOC: HO.HPS 13:09
PROVIDERS: PCP Physician Assistant; Visit Provider Hospitalist
DX: J45.50 Severe persistent asthma, uncomplicated (principal); J30.89 Other allergic rhinitis; L20.82 Flexural eczema; R06.09 Other forms of dyspnea; R60.0 Localized edema; J44.89 Other specified chronic obstructive pulmonary disease
CPT/HCPCS: 99214

== ENCOUNTER 2024-12-14 09:57 | Outpatient (REF) | payer BC, SELFPAY ==
--- NOTE | ~2024-12-14 | XR_ITS ---
EXAMINATION: XR HAND, RIGHT CLINICAL INFORMATION: M79.641 - Pain in right hand COMPARISON: None available. TECHNIQUE: PA, lateral, and oblique views of the right hand. FINDINGS: There is a deformity with callus formation in the proximal to mid diaphysis, fifth metacarpal. No acute cortical disruption in the metacarpals. The phalanges are intact with normal alignment. The carpal bones are intact with normal alignment. Distal radius and ulna are intact. No lytic or blastic lesions. XR/XR hand RT 2V IMPRESSION: Old traumatic deformity, fifth metacarpal. Electronically signed by: Erik Revlees MD 12/14/2024 10:57 AM EDT
--- NOTE | ~2024-12-14 | XR_ITS ---
EXAMINATION: XR HAND, LEFT CLINICAL INFORMATION: M79.641 - Pain in right hand COMPARISON: September 02, 2018. TECHNIQUE: PA, lateral, and oblique views of the left hand. FINDINGS: Degenerative changes in the carpal bones. No acute cortical disruption or malalignment in the carpal bones. Metacarpals are intact. Phalanges are intact with normal alignment. Subtle old deformity at the proximal aspect middle phalanx third digit. Distal radius and ulna are intact. No lytic or blastic lesions. XR/XR hand LT 2V IMPRESSION: No acute fracture or dislocation. Old healed fracture distal phalanx third digit. Degenerative changes first carpometacarpal joint. Electronically signed by: Erik Reveles MD 12/14/2024 11:00 AM EDT
--- OUTSIDE RECORDS SUMMARY | 2024-12-14 11:13 | XMS_ITS | Patient Health Record ---
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 and limit standing/walking until further [...] Administration Date Status Comme nts COVID-19 Pfizer BioNTStoke Vaccine Unknown 07/25/2020 Administered Second Dose: Social [...] Problem Status W/U Status Risk Notes Problem 91870001 Primary osteoarthritis, right ankle and foot (M19.071) Active confirmed Problem [id number] Neuritis of left foot (G57.92) Active confirmed Problem 665797752354717 Osteoarthritis o f right ankle and foot (M19.071) Active confirmed Problem 89472502 Osteoarthritis o f left ankle and foot (M19.072) Active confirmed Problem 53641911 Pes cavus (Q66.7) Active confirmed Plan Of Treatment Pending Test Test Name Order Date X ray : Foot, left 3V 04/22/2018 X ray : Foot, left 3V 05/08/2021 X ray : Foot, left 3V 12/04/2021 X ray : Foot, right 3V 12/04/2021 X ray : Foot, right 3V 03/10/2018 X ray : Foot, right 3V 05/08/2021 16289- Debride <25 sq cm 02/06/2018 [id number] I&D ABSCESS- SIMPLE,SINGLE 018 Insurance Providers Payer Name Payer Address Payer Phone Subscriber Number Group Number Insured Name Patient Relationship to Insured Coverage Start Date Coverage End Date [facility] [address] [place] [address] [phone] [id number] Samina Rojas Self - patient is the insured Medical (General) History Medical History History ICD Code Back,Hip,and Knee pain Cholesterol Lung disease Eczema Reflux ( GERD) Thyroid disorder Chicken pox Joint implants/screws Surgical History Surgery Date(Month/Year) right hip replacement 04/2017 left foot surgery vaginal sling
[2024-12-14 11:24] LABS: Rheumatoid Factor < 13.0 IU/mL (<15.0)
[2024-12-15 14:33] LABS: Anti DNA DS Antibody 45 IU/mL
[2024-12-17 09:53] LABS: Anti Nuclear Antibody Screen NEGATIVE (NEGATIVE)
[2024-12-17 14:24] LABS: Cyclic Citrullinated Peptide <16 UNITS
== END 2024-12-14 09:58 | disposition home or self-care (01) ==
LOC: HO.XRAY 09:57
PROVIDERS: PCP Physician Assistant; Visit Provider Physician Assistant
DX: M79.642 Pain in left hand (principal); M79.641 Pain in right hand
CPT/HCPCS: 36415; 73120; 86038; 86200; 86225; 86431

== ENCOUNTER → 2024-12-14 10:26 | Outpatient (BNV) | payer BC, SELFPAY | PROVIDERS: PCP Physician Assistant; Visit Provider Radiology Diagnostic Radiology | DX: M79.642 Pain in left hand (principal); M18.11 Unilateral primary osteoarthritis of first carpometacarpal joint, right hand | CPT/HCPCS: 73120 ==

== ENCOUNTER 2025-01-04 11:11 | Outpatient (AMB) | payer BC, SELFPAY ==
[2025-01-04 11:18] VITALS: BP 144/80; PULSE 68; O2SAT 98
--- NOTE | 2025-01-04 11:18 | MHC.PC.OV ---
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: No Accompanied by: Self / Same As Patient Allergies cephalexin (From KEFLEX) Allergy (Intermediate, Verified 12/07/24 13:13) RASH chlorhexidine (CHLORHEXIDINE) Allergy (Intermediate, Verified 12/07/24 13:13) ITCHY,RASH ibuprofen (IBUPROFEN) Allergy (Intermediate, Verified 12/07/24 13:13) RASH- PER H&P latex (LATEX) Allergy (Intermediate, Verified 12/07/24 13:13) RASH Medication List - Last Reconciled 01/04/25 by Jose Oliveira PA-C albuterol sulfate 90 mcg/actuation 2 inhalations PO Q4H PRN budesonide 0.5 mg (2 mL) inhalation BID 30 days xmqbczxkoa-ypvceadj-eoyhadanvf 160-9-4.8 mcg/actuation (Breztri Aerosphere) 2 inhalations inhalation BID 30 days cetirizine (All Day Allergy (cetirizine)) 10 mg PO DAILY PRN Dupixent Pen (dupilumab) 300 mg (2 mL) subcut Q2W NS epinephrine (EpiPen 2-Kali) 0.3 mg (0.3 mL) IM Q10M PRN 30 days fluticasone propionate 50 mcg/actuation 1 spray intranasal DAILY 30 days gabapentin 300 mg PO BEDTIME 30 days leg brace (Ankle Brace) [facility], [address] [place] [id number] PLEASE SCHEDULE WITH COURTNEY SALGUERO (I've already spoken to Courtney about this case) for left AFO all style or renata style for right orthotic or shoe insert levalbuterol HCl 1.25 mg (3 mL) inhalation Q6H PRN levothyroxine 88 mcg PO DAILY 90 days montelukast 10 mg PO DAILY 90 days nebulizers As directed omeprazole 20 mg PO DAILY 3 months roflumilast (Daliresp) 500 mcg PO DAILY 90 days rosuvastatin 5 mg PO DAILY 90 days Tobacco use date assessed: 08/30/24 Dental Screening Dental Screen Date: 08/30/24 HPI discuss labs HPI Details The patient is a 59-year-old female presenting with concerns regarding a positive STEPHEN test and potential autoimmune conditions. She was tested for double-stranded DNA and STEPHEN due to bilateral hand pain and generalized joint pain.. She received a letter to follow up with a program management specialist but has been unable to secure an appointment until October of the following year. The patient expressed a desire to be proactive about her health and sought advice on further steps. The patient reported a history of a positive STEPHEN test, which was discussed with a program management specialist, Dr. Alvarez, who indicated that a negative STEPHEN typically rules out lupus. However, the patient is concerned about being part of the 2% of lupus patients who may have a negative STEPHEN. She mentioned symptoms such as persistent thirst and sore eyes, which she associates with Sj?gren's Syndrome, and noted a history of a rash exacerbated by sun exposure. The patient has a history of hypertension, with elevated blood pressure noted during the visit, although she reports normal readings at home. She has been engaging in regular physical activity, including walking or biking for at least half an hour daily, and has experienced weight loss. 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 Brother No problems noted. Brother No problems noted. Sister No problems noted. Sister No problems noted. Sister No problems noted. Son No problems noted. Son No problems noted. Son No problems noted. Daughter No problems noted. Social History Household Members: Family Household Members Other:: spouse/son Housing: House Alcohol intake: current Alcohol intake frequency: a few times a month Patient Tobacco Use Status: Never used Tobacco e-Cigarette/Vaping Use: Never Used Second Hand Smoke Exposure: No service: No Current occupational status: employed Current occupational exposures/hazards: No Cognitive needs: No Hearing needs: No Vision needs: No Questionnaire PHQ-9 Over the last 2 weeks, how often have you been bothered by any of the following problems? 1. Little interest or pleasure in doing things: not at all 2. Feeling down, depressed, or hopeless: not at all 3. Trouble falling or staying asleep, or sleeping too much: not at all 4. Feeling tired or having little energy: not at all 5. Poor appetite or overeating: not at all 6. Feeling bad about yourself - or that you are a failure or have let yourself or your family down: not at all 7. Trouble concentrating on things, such as reading the newspaper or watching television: not at all 8. Moving or speaking so slowly that other people could have noticed. Or the opposite - being so fidgety or restless that you have been moving around a lot more than usual: not at all 9. Thoughts that you would be better off or of hurting yourself in some way: not at all Total score: 0 29148 - PHQ-9 Billing: Yes Source: Developed by Drs. Ruslan Crespo, Shayna Otero, Bart Butler and colleagues, with an educational jess from [employer]. Thrive Questionnaire Date Thrive assessed: 01/04/25 I am a: Patient What is your living situation today?: I have a steady place to live Within the past 12 months, did the food you bought not last and you didn't have the money to get more?: Never true Within the past 12 months, did you worry whether your food would run out before you got money to buy more?: I choose not to answer this question Do you have trouble paying for medicines?: I choose not to answer this question Do you have trouble getting transportation to medical appointments?: I choose not to answer this question Do you have trouble paying your heating and electricity bill?: I choose not to answer this question Do you have trouble taking care of your child, family member or friend?: I choose not to answer this question Do you have trouble with day-to-day activities such as bathing, preparing meals, shopping, managing finances, etc.?: I choose not to answer this question Are you currently unemployed and looking for a job?: I choose not to answer this question Are you interested in more education?: I choose not to answer this question Please select the resources that you would like help with: None Currently or been in a relationship where the following occur: I choose not to answer THRIVE Score: 0 AUDIT C Alcohol Use Questionnaire (AUDIT-C) 1. How often do you have a drink containing alcohol?: 2-3 times a week Total Score: 3 MARLYS-7 AMB Questionnaire MARLYS-7 Date MARLYS - 7 assessed: 01/04/25 Feeling nervous, anxious, or on edge: 0 = Not at all Not being able to stop or control worryin = Not at all Worrying too much about different things: 0 = Not at all Trouble relaxin = Not at all Being so restless that it is hard to sit still: 0 = Not at all Becoming easily annoyed or irritable: 0 = Not at all Feeling afraid as if something awful might happen: 0 = Not at all Total MARLYS-7 score (0-4 normal; 5-9 mild; 10-14 moderate; 15-21 severe): 0 Source: Developed by Drs. Ruslan Crespo, Shayna Otero, Bart Butler and colleagues, with an educational jess from [employer]. MARLYS-7 Assessment Billing MARLYS-7 Assessment Tool: MARLYS-7 Assessment 64660 Review of Systems Const Denies headache(s) Eyes Denies loss of vision ENT Denies vertigo, Denies dizziness, Denies headache(s) and Denies sore throat Card Denies chest pain, Denies leg edema and Denies lightheadedness Resp Denies cough, Denies hemoptysis and Denies wheezing GI Denies abdominal pain, Denies melena, Denies constipation, Denies diarrhea and Denies vomiting Denies urinary frequency, Denies dysuria and Denies urinary urgency Musc Denies arthralgias, Denies joint swelling, Denies numbness and Denies tingling Neuro Denies Abnormal speech present, Denies behavioral changes, Denies vertigo, Denies dizziness, Denies headache(s), Denies loss of vision, Denies memory loss, Denies numbness and Denies tingling Psych Denies anxiety, Denies behavioral changes, Denies depression, Denies memory loss and Denies panic attacks Ovidio/Lymph Denies easy bleeding and Denies easy bruising Aller/Immun Denies wheezing Physical exam (Primary Care) Vital Signs: Last Vital Signs Pulse 68 01/04/25 11:18 BP 144/80 H 01/04/25 11:18 Pulse Ox 98 01/04/25 11:18 Oxygen Delivery Method Room Air 01/04/25 11:18 Tobacco/Smoking Status: Tobacco use Status Tobacco use date assessed 08/30/24 01/04/25 11:23 Patient Tobacco Use Status Never used Tobacco 01/04/25 11:23 e-Cigarette/Vaping Use Never Used 01/04/25 11:23 PHQ-9: PHQ-9 Score PHQ-9: Total score 0 01/04/25 16:50 Thrive Assessment: Date of Thrive Assessment Date Thrive assessed 01/04/25 01/04/25 11:23 Currently or been in a relationship where the following occur: I choose not to answer Const General: healthy appearing, no acute distress, alert and awake Nutritional Appearance: well nourished Orientation/consciousness: oriented to person, oriented to place and oriented to time HENMT Ears: TM's normal bilaterally General nose exam: Normal nasal mucous membranes and turbinates present Eyes Conjunctivae: conjunctivae normal Sclerae: sclerae normal Pupils: Equal, round and reactive pupils present Neck Neck: Yes no lymphadenopathy and Yes no JVD Thyroid: Thyroid normal Carotids: no bruits Resp Effort & Inspection: normal respiratory effort and not tachypneic Auscultation: no crackles, no rales, no rhonchi and no wheezes Cardio Rate: regular rate Rhythm: regular rhythm Heart sounds: no murmurs and normal S1 and S2 GI Palpation (GI): Soft to palpation, nontender, no hepatomegaly and no splenomegaly Auscultation: normal bowel sounds Skin General skin exam: no rashes or lesions noted and dry skin Neuro General: oriented to person, oriented to place and oriented to time Cranial nerves: Yes Equal, round and reactive pupils present Speech: No Abnormal speech present Gait exam (Neuro): Normal gait present Motor exam (neuro): no tremor noted Extrem Right upper extremity: full ROM Left upper extremity: full ROM Right lower extremity: full ROM; no edema Left lower extremity: full ROM; no edema Psych Mental Status: mental status grossly normal Speech and movement: Normal speech and movement present Affect: normal affect Attitude: cooperative Thought process: Normal thought process present Coding Level of Care Code Est Pt Level 4 (26549) Diagnoses Positive double stranded DNA antibody test R76.8 Additional Codes MARLYS-7 Assessment Billing - MARLYS-7 Assessment Tool: MARLYS-7 Assessment 72666 ([id number]) PHQ-9 - 50776 - PHQ-9 Billing: Yes ([id number]) Assessment & Plan Assessment & Plan (1) Positive double stranded DNA antibody test: Code(s): R76.8 - Other specified abnormal immunological findings in serum Category: Medical Plan: The possibility of lupus was discussed, given the positive STEPHEN test and symptoms such as rash exacerbated by sun exposure. The patient is advised to follow up with a program management specialist for further evaluation and potential testing, including complement levels, ESR, and CRP. Further evaluation by a program management specialist is recommended to explore potential underlying conditions such as lupus or Sj?gren's Syndrome. Orders: Orders Erythrocyte Sedimentation Rate 01/04/25 R76.8 - Other specified abnormal immunological findings in serum AMB Hemoglobin A1c 01/04/25 R73.09 - Other abnormal glucose Complement C3 01/04/25 R76.8 - Other specified abnormal immunological findings in serum Complement C4 01/04/25 R76.8 - Other specified abnormal immunological findings in serum CRP High Sensitivity 01/04/25 R76.8 - Other specified abnormal immunological findings in serum Sm Sm/DIRECTOR SHIP Antibodies 01/04/25 R76.8 - Other specified abnormal immunological findings in serum Sjogren's Antibodies 01/04/25 R76.8 - Other specified abnormal immunological findings in serum Anti DNA DS Antibody 01/04/25 R76.8 - Other specified abnormal immunological findings in serum
--- OUTSIDE RECORDS SUMMARY | 2025-01-04 12:17 | XMS_ITS | Patient Health Record ---
[facility] Address [address] [facility] [place] [address] Care Team Providers Care Board Catcher Name Role Phone Jorge Slaughter MD Primary Care Provider Susana Cook Unavailable [phone] Allergies Allergen (clinical drug ingredient) Drug/Non Drug [...] ProAir HFA Active AFO-Hinged as directed Wear Daily; Duration: as needed 05/06/2018 Not-Taking AFO-Hinged as directed Wear Daily; Duration: as needed 05/06/2018 Not-Taking Levothyroxine Sodium Active Cephalexin 500 MG 1 tablet Orally Twice a day; Duration: 10 day(s) Not-Taking albuterol Active predniSONE Not-Takin g Aleve PRN Active Keflex 500 MG 1 capsule Orally every 12 hrs; Duration: 7 days 03/05/2018 Not-Taking Omeprazole 20 MG Orally Act hardik Medrol 4 MG as directed Orally 02/11/2018 Not-Taking Work Note . . . Patient can not walk long distances, can use [employer] for work and limit standing/walking until further notice 04/20/2018 Active Hydrocortisone 1 % 1 application to affected area Externally Twice a day to affected areas on feet; Duration: 30 days 02/11/2018 Active Amoxicillin-Pot Clavulanate Not-Taking Physical Therapy . . . 2-3x/week; Duration: 3-4 weeks 04/29/2018 Not-Taking AFO-Hinged as directed Wear Daily; Duration: as needed 04/15/2018 Not-Taking Walking Boot/Pneumatic As directed Wear Daily; Duration: Until further notice 03/27/2018 Not-Taking Breztri Aerosphere 160-9-4.8 MCG/ACT 2 puffs Inhalation Acti ve Dupixent injection every two weeks Active Feldene 20 MG 1 capsule with food Orally Once a day; Duration: 14 days 05/08/2021 Active Atorvastatin Calcium 20 MG 1 tablet Orally Once a day Active Symbicort 2 puffs Twice a day Not-Taking Spiriva HandiHaler N ot-Taking Xolair Not-Taking Amoxicillin-Pot Clavulanate 875 875-125 MG one tab Orally every 12 hrs; Duration: 3 days 01/03/2021 Not-Taking Flagyl Not-Taking Simvastatin Not-Taki ng Immunizations Vaccine Route Administration Date Status Comme nts COVID-19 Pfizer BioNTech Vaccine Unknown 07/25/2020 Administered Second Dose: Social [...] Problem Status W/U Status Risk Notes Problem Localized, primary osteoarthritis of the ankle and/or foot (048360204) Primary osteoarthritis, right ankle and foot (M19.071) Active confirmed Problem Mononeuropathy of lower limb (065770653) Neuritis of left foot (G57.92) Active confirmed Problem Localized, primary osteoarthritis of the ankle and/or foot (244949972) Osteoarthritis of right ankle and foot (M19.071) Active confirmed Problem Localized, primary osteoarthritis of the ankle and/or foot (262807841) Osteoarthritis of left ankle and foot (M19.072) Active confirmed Problem Pes cavus (80821351) Pes cavus (Q66.7) Active confirmed Plan Of Treatment Pending Test Test Name Order Date X ray : Foot, left 3V 04/22/2018 X ray : Foot, left 3V 05/08/2021 X ray : Foot, left 3V 12/04/2021 X ray : Foot, right 3V 12/04/2021 X ray : Foot, right 3V 03/10/2018 X ray : Foot, right 3V 05/08/2021 [id number] Debride <25 sq cm 02/06/2018 [id number] I&D ABSCESS- SIMPLE,SINGLE 018 Insurance Providers Payer Name Payer Address Payer Phone Subscriber Number Group Number Insured Name Patient Relationship to Insured Coverage Start Date Coverage End Date [facility] [address] [place] [address] [id number] Samina Rojas Self - patient is the insured Medical (General) History Medical History History ICD Code Back,Hip,and Knee pain Cholesterol Lung disease Eczema Reflux ( GERD) Thyroid disorder Chicken pox Joint implants/screws Surgical History Surgery Date(Month/Year) right hip replacement 04/2017 left foot surgery vaginal sling
== END 2025-01-04 12:02 | disposition home or self-care (01) ==
LOC: HO.HMCH 11:11
PROVIDERS: PCP Physician Assistant; Visit Provider Physician Assistant
DX: R76.8 Other specified abnormal immunological findings in serum (principal)

== ENCOUNTER → 2025-01-04 11:11 | Outpatient (BNVA) | payer BC, SELFPAY | PROVIDERS: PCP Physician Assistant; Visit Provider Physician Assistant | DX: R76.8 Other specified abnormal immunological findings in serum (principal); I10 Essential (primary) hypertension; Z13.30 Encounter for screening examination for mental health and behavioral disorders, unspecified | CPT/HCPCS: 96127 ==

== ENCOUNTER 2025-01-27 07:37 | Outpatient (REF) | payer BC, SELFPAY ==
--- OUTSIDE RECORDS SUMMARY | 2025-01-27 07:39 | XMS_ITS | Patient Health Record ---
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 and limit standing/walking until further [...] primary osteoarthritis of the ankle and/or foot (356483316) Primary osteoarthritis, right ankle and foot (M19.071) Active confirmed Problem Mononeuropathy of lower limb (221981715) Neuritis of left foot (G57.92) Active confirmed Problem Localized, primary osteoarthritis of the ankle and/or foot (403818020) Osteoarthritis of right ankle and foot (M19.071) Active confirmed Problem Localized, primary osteoarthritis of the ankle and/or foot (788497907) Osteoarthritis of left ankle and foot (M19.072) Active confirmed Problem Pes cavus (08722885) Pes cavus (Q66.7) Active confirmed Plan Of Treatment Pending Test Test Name Order Date X ray : Foot, left 3V 04/22/2018 X ray : Foot, left 3V 05/08/2021 X ray : Foot, left 3V 12/04/2021 X ray : Foot, right 3V 12/04/2021 X ray : Foot, right 3V 03/10/2018 X ray : Foot, right 3V 05/08/2021 51339- Debride <25 sq cm 02/06/2018 [id number] I&D ABSCESS- SIMPLE,SINGLE 018 Insurance Providers Payer Name Payer Address Payer Phone Subscriber Number Group Number Insured Name Patient Relationship to Insured Coverage Start Date [facility]age End Date [facility] [address] [place] [address] [id number] Samina Rojas Self - patient is the insured Medical (General) History Medical History History ICD Code Back,Hip,and Knee pain Cholesterol Lung disease Eczema Reflux ( GERD) Thyroid disorder Chicken pox Joint implants/screws Surgical History Surgery Date(Month/Year) right hip replacement 04/2017 left foot surgery vaginal sling
[2025-01-28 23:17] LABS: Antibody to SS-A Antigen <1.0 NEG AI (<1.0 NEG); Antibody to SS-B Antigen <1.0 NEG AI (<1.0 NEG); SM/Ribonucleoprotein Ab <1.0 NEG AI (<1.0 NEG); Smith Protein <1.0 NEG AI (<1.0 NEG)
== END 2025-01-27 07:38 | disposition home or self-care (01) ==
LOC: HO.LAB 07:37
PROVIDERS: PCP Physician Assistant; Visit Provider Physician Assistant
DX: Z01.84 Encounter for antibody response examination (principal); M79.641 Pain in right hand; M79.642 Pain in left hand; R76.8 Other specified abnormal immunological findings in serum
CPT/HCPCS: 36415; 85652; 86141; 86160; 86225; 86235

== ENCOUNTER 2025-03-08 07:31 | Outpatient (REF) | payer BC, SELFPAY ==
--- OUTSIDE RECORDS SUMMARY | 2025-03-08 07:34 | XMS_ITS | Encounter Summary ---
Author Organization [facility] Address [address] [place] [address] Phone Care Team Providers Care Feller Operator Name Role Phone Cy Huggins DO Primary Care Provider [phone] Reason for Referral * Physical Therapy (Routine) - Closed Specialty Diagnoses / Procedures Referred By Contac t Referred To Contact Physical Therapy Diagnoses Encounter for rehabilitation System, Provider Not In, PhD [address] [address] Phone: tel: Referral ID Status Reason Start Date Expiration Date Visits Re quested Visits Authorized [id number] Closed 12/03/2017 06/29/2018 7 7 Encounter Details Date Type Department Care Team (Latest Contact Info) Description 11/18/2017 Transcribe Orders [facility] [address] [place] [address] InstrumAly MD [address] [place] [address] [place] [address] Encounter for rehabilitation (Primary Dx) Social History Tobacco Use Types Packs/Day Years Used Date Smoking Tobacco: Never Assessed Comments Unknown Sex and Gender Information Value Date Recorded Sex Assigned at Not on file Legal Sex Female 9:44 PM EDT Gender Identity Not on file Sexual Orientation Not on file documented as of this encounter Plan of Treatment Scheduled Referrals Name Type Priority Associated Diagnoses Orde r Schedule Ambulatory referral to [facility] Physical Therapy Outpatient Referral Routine Encounter for rehabilitation Ordered: 11/18/2017 documented as of this encounter Visit Diagnoses Diagnosis Encounter for rehabilitation- Primary documented in this encounter Care Teams Feller Operator Relationship Specialty Start Date End Date Cy Huggins DO [address] [place] [address] PCP - General Internal Medicine 11/18/17 documented as of this encounter Additional Source Comments The information contained in this document represents components of the legal health record. It is not the complete legal health record.[facility]
--- OUTSIDE RECORDS SUMMARY | 2025-03-08 07:34 | XMS_ITS | Clinical Summary ---
Author Organization [facility] Address [address] [place] [address] Phone Care Team Providers Care Installation Tech Name Role Phone Cy Huggins Primary Care Provider [phone] Allergies Active Allergy Reactions Criticality Noted Date Comments Latex Medium 12/03/2017 Medications Medication-Jose e Text Levothyroxine Sodium Active Medication-Jose e Text symbacort Active oxyCODONE HCl 10 mg Tab 1 tablet as needed Orally up to five times a day Active NAPROXEN ORAL Active SIMVASTATIN ORAL Active ALBUTEROL SULFATE (PROAIR HFA INHL) Active OMEPRAZOLE ORAL Active Family History Medical History Relation Comments CV disease Father 2 Cancer Mother 2 Relation Status Comments Father 1 Father 2 Mother 1 Alive Mother 2 Social History Tobacco Use Types Packs/Day Years Used Date Smoking Tobacco: Never Assessed Education Answer Date Recorded Are you interested in more education? Not on mary e 10/25/2022 Are you concerned about learning? Not on file 10/25/2022 No 10/25/2022 No 10/25/2022 Digital Access Answer Date Recorded No 11/23/2022 No 11/23/2022 Reliable internet access at home? Not on file 11/23/2022 Device with a working camera? Not on file Comments Unknown Sex and Gender Information Value Date Recorded Sex Assigned at Not on file Legal Sex Female 9:44 PM EDT Gender Identity Not on file Sexual Orientation Not on file Last Filed Vital Signs Vital Sign Reading Time Taken Comments Blood Pressure - - Pulse - - Temperature - - Respiratory Rate - - Oxygen Saturation - - Inhaled Oxygen Concentration - - Weight 99.8 kg (220 lb) 09/20/2016 1:02 AM EDT Height 165.1 cm (5' 5 ) 09/20/2016 1:02 AM EDT Body Mass Index 36.61 09/20/2016 1:02 AM EDT Plan of Treatment Health Maintenance Due Date Last Done Comments LIPID PANEL 1963 DEPRESSION SCREENING 1975 SMOKING Hx and SMOKELESS TOBACCO SCREENING 01/16/1976 HEPATITIS C SCREENING 1981 HIV ONE-TIME SCREENING (18-6 5 YEARS) 1981 PAP SMEAR 01/16/1984 MAMMOGRAM 2003 COLOGUARD 01/16/2008 COLONOSCOPY 01/16/2008 COLORECTAL CANCER SCREENING 01/16/2008 FIT TEST 01/16/2008 FOBT 01/16/2008 SIGMOIDOSCOPY 01/16/2008 VIRTUAL COLONOSCOPY 01/16/2008 PNEUMOCOCCAL VACCINES (50+ years) (1 of 1 - PCV) 2013 ZOSTER VACCINES (1 of 2) 2013 Adult Td,Tdap Booster 06/30/2022 06/30/2012 INFLUENZA VACCINE (#1) 2025 04/26/2020 COVID-19 VACCINE (3 - 2024-2 6 season) 2025 08/15/2020, 07/25/2020 RSV VACCINE (1 - 1-dose 75+ series) 2038 HEPATITIS A VACCINES Aged Out No long er eligible based on patient's age to complete this topic HIB VACCINES Aged Out No longer eligi ble based on patient's age to complete this topic MENINGOCOCCAL VACCINES (ACWY) Aged Out No longer eligible based on patient's age to complete this topic MENINGOCOCCAL VACCINES (B) Aged Out N o longer eligible based on patient's age to complete this topic Medical Devices Not on file Insurance GENERIC COMMERCIAL GENERIC COMMERCIAL Member Subscriber Plan / Payer (Ef fective 2017-Present) Name:Bob Samina Relation to Subscriber:Spouse Name:MANUELITO ROJAS Date of :1900 Address: [address] [place] [address] Payer ID:Not on file Type:Indemnity Address: [employer] [id number] [place] [phone] GENERIC COMMERCIAL GENERIC COMMERCIAL GENERIC COMMERCIAL GENERIC COMMERCIAL GENERIC COMMERCIAL Member Subscriber Plan / Payer (Ef fective 2017-Present) Name:Samina Rojas Relation to Subscriber:Spouse Name:MANUELITO ROJAS Date of :1900 Address: [address] [place] [address] Payer ID:Not on file Type:Indemnity [facility] [address] [place] [phone] GENERIC COMMERCIAL Member Subscriber Plan / Payer (Ef fective 2017-Present) Name:Samina Roajs Relation to Subscriber:Spouse Name:MANUELITO ROJAS Date of :1900 Address: [address] [place] [address] Payer ID:Not on file Type:Indemnity Address: [employer] [id number] [place] [phone] GENERIC COMMERCIAL Member Subscriber Plan / Payer (Ef fective 2017-Present) Name:Samina Rojas Relation to Subscriber:Spouse Name:MANUELITO ROJAS Date of :1902 Address: [address] [place] [address] Payer ID:Not on file Type:Indemnity Address: [employer] [address] [place] [phone] Care Teams Installation Tech Relationship Specialty Start Date End Date Cy Huggins DO [address] [place] [address] PCP - General Internal Medicine 11/18/17 Additional Source Comments The information contained in this document represents components of the legal health record. It is not the complete legal health record.[facility]
--- OUTSIDE RECORDS SUMMARY | 2025-03-08 07:34 | XMS_ITS | Patient Health Record ---
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 and limit standing/walking until further [...] primary osteoarthritis of the ankle and/or foot (879107068) Primary osteoarthritis, right ankle and foot (M19.071) Active confirmed Problem Mononeuropathy of lower limb (150233212) Neuritis of left foot (G57.92) Active confirmed Problem Localized, primary osteoarthritis of the ankle and/or foot (983410278) Osteoarthritis of right ankle and foot (M19.071) Active confirmed Problem Localized, primary osteoarthritis of the ankle and/or foot (756914770) Osteoarthritis of left ankle and foot (M19.072) Active confirmed Problem Pes cavus (51131966) Pes cavus (Q66.7) Active confirmed Plan Of Treatment Pending Test Test Name Order Date X ray : Foot, left 3V 04/22/2018 X ray : Foot, left 3V 05/08/2021 X ray : Foot, left 3V 12/04/2021 X ray : Foot, right 3V 12/04/2021 X ray : Foot, right 3V 03/10/2018 X ray : Foot, right 3V 05/08/2021 20968- Debride <25 sq cm 02/06/2018 88522 I&D ABSCESS- SIMPLE,SINGLE 018 Insurance Providers Payer Name Payer Address Payer Phone Subscriber Number Group Number Insured Name Patient Relationship to Insured Coverage Start Date Coverage End Date [facility] [address] [place] [address] [id number] Samina Rojas Self - patient is the insured Medical (General) History Medical History History ICD Code Back,Hip,and Knee pain Cholesterol Lung disease Eczema Reflux ( GERD) Thyroid disorder Chicken pox Joint implants/screws Surgical History Surgery Date(Month/Year) right hip replacement 04/2017 left foot surgery vaginal sling
[2025-03-08 08:51] LABS: Hematocrit 36.4 % (37.0-47.0); Hemoglobin 12.1 g/dl (12.0-16.0); Mean Corpuscular HGB Conc 33.2 g/dl (31.0-35.0); Mean Corpuscular Hemoglobin 29.0 pg (27.0-33.0); Mean Corpuscular Volume 87.3 fL (80.0-98.0); NRBC Abs Auto 0.000 X10*3/uL (0.0-0.012); NRBC Pct Auto 0.0 /100WBC (0.0-0.2); Platelet Count 268 X10*3/uL (160-400); Red Blood Count 4.17 X10*6/uL (4.20-5.50); White Blood Count 6.0 X10*3/uL (4.8-10.8)
[2025-03-08 09:20] LABS: Alanine Aminotransferase 37 U/L (0-31); Albumin Level 4.4 g/dL (3.5-5.0); Alkaline Phosphatase 72 U/L (39-117); Anion Gap 14 (12-20); Aspartate Amino Transferase 33 U/L (5-31); Blood Urea Nitrogen 12 mg/dL (9-16); Calcium 9.4 mg/dL (8.4-10.2); Carbon Dioxide 23 mmol/L (22-29); Chloride 107 mmol/L (96-108); Cholesterol 202 mg/dL (<200); Estimated Glomerular Filt Rate > 60; HDL Cholesterol 70 mg/dL (>40); Iron 101 mcg/dL (30-160); Percent Iron Saturation 34 % (15-50); Potassium 3.9 mmol/L (3.3-5.1); Sodium 140 mmol/L (135-145); Total Iron Binding Capacity 296 mcg/dL (228-428); Total Protein 7.0 g/dL (6.5-8.0); Triglycerides 144 mg/dL (<150); Unsaturated Iron Binding 195 ug/dL
[2025-03-08 10:21] LABS: Microalbum/Creatinine Ratio Ur 8.3 ug/mg cr (<30)
== END 2025-03-08 07:32 | disposition home or self-care (01) ==
LOC: HO.LAB 07:31
PROVIDERS: PCP Physician Assistant; Visit Provider Physician Assistant
DX: K21.9 Gastro-esophageal reflux disease without esophagitis (principal); D50.9 Iron deficiency anemia, unspecified; E78.2 Mixed hyperlipidemia; E03.9 Hypothyroidism, unspecified; I10 Essential (primary) hypertension; M79.641 Pain in right hand; M79.642 Pain in left hand; R76.8 Other specified abnormal immunological findings in serum
CPT/HCPCS: 36415; 80053; 80061; 82043; 82570; 83540; 84443; 85027; 85652; 86140; 86141

== ENCOUNTER 2025-03-09 08:24 | Outpatient (AMB) | payer BC, SELFPAY ==
[2025-03-09 08:28] VITALS: BP 152/80; PULSE 86; RESP 18; TEMP 36.1; O2SAT 94; BMI 33.1
--- NOTE | 2025-03-09 08:28 | A.OFFPC_ITS ---
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 Accompanied by: Self / Same As Patient Allergies cephalexin (From KEFLEX) Allergy (Intermediate, Verified 03/09/25 08:36) RASH chlorhexidine (CHLORHEXIDINE) Allergy (Intermediate, Verified 03/09/25 08:36) ITCHY,RASH ibuprofen (IBUPROFEN) Allergy (Intermediate, Verified 03/09/25 08:36) RASH- PER H&P latex (LATEX) Allergy (Intermediate, Verified 03/09/25 08:36) RASH Medication List - Last Reconciled 03/09/25 by Jose Oliveira PA-C albuterol sulfate 90 mcg/actuation 2 inhalations PO Q4H PRN budesonide 0.5 mg (2 mL) inhalation BID 30 days efpwesvmwm-pzairbds-fweuhffamz 160-9-4.8 mcg/actuation (Breztri Aerosphere) 2 inhalations inhalation BID 30 days cetirizine (All Day Allergy (cetirizine)) 10 mg PO DAILY PRN Dupixent Pen (dupilumab) 300 mg (2 mL) subcut Q2W NS epinephrine (EpiPen 2-Kali) 0.3 mg (0.3 mL) IM Q10M PRN 30 days fluticasone propionate 50 mcg/actuation 1 spray intranasal DAILY 30 days leg brace (Ankle Brace) [facility], [address] [place] [id number] PLEASE SCHEDULE WITH COURTNEY SALGUERO (I've already spoken to Courtney about this case) for left AFO all style or renata style for right orthotic or shoe insert levalbuterol HCl 1.25 mg (3 mL) inhalation Q6H PRN levothyroxine 88 mcg PO DAILY 90 days montelukast 10 mg PO DAILY 90 days nebulizers As directed omeprazole 20 mg PO DAILY 3 months roflumilast (Daliresp) 500 mcg PO DAILY 90 days rosuvastatin 5 mg PO DAILY 90 days Tobacco use date assessed: 03/09/25 Dental Screening Dental Screen Date: 03/09/25 Did you have a dental visit in the last 12 months?: Yes Did you have a dental problem in the last 6 months where you did not have access to dental care?: No Was dental information given to patient?: Patient has dentist HPI Annual Exam HPI Details Patient is a 60-year-old female here today for an annual physical.? Patient's past medical history significant for moderate persistent asthma, hypothyroidism, eczema, allergic rhinitis, obesity. Concern-->today's blood pressure in office slightly elevated. She reports mo nitoring her blood pressure at home and reports 120s to 130 systolic . She has been able to lose a lot of weight since last office visit using weight watchers program. She is not interested in starting blood pressure medication at this time and would like to continue monitoring and working on lifestyle modifications. Neuropathy lower extremities: Most recent EMG testing showing moderate to s evere neuropathy worsening left lower extremity. Not clear if this is related to previous surgery verses lumbar spine disease. She does have an abnormal gait to which she wears orthotics to help stabilize her gait. She has started in pulmonary rehab for her asthma and plans to be more physically active. She is discouraged that she has not lost much weight and is interested in injectable therapy to help her lose weight. She has followed up with Orthopedics in [place] whom recommend cortisone injections. .. Polyarthralgia: + double-stranded DNA and elevated sed rate, has upcoming appoi ntment with Rheumatology for evaluation .. Moderate persistent asthma/ Allergies: Recently had a bronchitis and was on azithromycin 500 for 5 days and feeling a bit better. Still has a bit of chest tightness and shortness of breath on exertion. (? has a previous history of severe COVID infection leading? to 3 months out of work). ?Patient is followed by box toe cutter for her asthma and has recently been having hard time with exacerbations her asthma requiring p.o. steroids.? Has been started on budesonide inhaled nebulizer treatments.? . She continues to have shortness of breath on exertion She is receiving allergy injections and Dupixent which has been somewhat effective. Recently had allergy injections and has localized reactions. .. Hypothyroidism: Most recent TSH is stable. Continues on levothyroxine 88 mcg which has been effective. .. Hyperlipidemia:? Recent lipid panel showing much improved total cholesterol and LDL. L. She continues on statin therapy without side effect. .. Gait disturbance: History of a left ankle fusion. Has recently seen a licensed practical nurse instructor whom recommended seeing an orthotic specialist for evaluation in our orthotics to help her with her gait disturbance. Continues to try her heart is to be physically active though is limited by her left ankle fusion. Vaccines: Up-to-date with COVID vaccine, pneumonia vaccine and tetanus vaccine, considering flu vaccine Colorectal cancer screening: Colonoscopy [place] [address] 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 Brother No problems noted. Brother No problems noted. Sister No problems noted. Sister No problems noted. Sister No problems noted. Son No problems noted. Son No problems noted. Son No problems noted. Daughter No problems noted. Social History (Updated 03/09/25 @ 08:42 by Jose Oliveira PA-C) Household Members: Family Household Members Other:: spouse/son Housing: House Alcohol intake: current Alcohol intake frequency: a few times a month Alcohol type: wine Patient Tobacco Use Status: Never used Tobacco e-Cigarette/Vaping Use: Never Used Second Hand Smoke Exposure: No service: No Current occupational status: employed Current occupational exposures/hazards: No Cognitive needs: No Hearing needs: No Vision needs: No Questionnaire PHQ-9 Over the last 2 weeks, how often have you been bothered by any of the following problems? 1. Little interest or pleasure in doing things: not at all 2. Feeling down, depressed, or hopeless: not at all 3. Trouble falling or staying asleep, or sleeping too much: not at all 4. Feeling tired or having little energy: not at all 5. Poor appetite or overeating: not at all 6. Feeling bad about yourself - or that you are a failure or have let yourself or your family down: not at all 7. Trouble concentrating on things, such as reading the newspaper or watching television: not at all 8. Moving or speaking so slowly that other people could have noticed. Or the opposite - being so fidgety or restless that you have been moving around a lot more than usual: not at all 9. Thoughts that you would be better off or of hurting yourself in some way: not at all Total score: 0 Depression Screening Interpretation: Negative Depression Screening Done: Yes 77814 - PHQ-9 Billing: Yes Source: Developed by Drs. Ruslan Crespo, Shayna Otero, Bart Butler and colleagues, with an educational jess from [employer]. Thrive Questionnaire Date Thrive assessed: 03/09/25 I am a: Patient What is your living situation today?: I have a steady place to live Within the past 12 months, did the food you bought not last and you didn't have the money to get more?: Never true Within the past 12 months, did you worry whether your food would run out before you got money to buy more?: I choose not to answer this question Do you have trouble paying for medicines?: I choose not to answer this question Do you have trouble getting transportation to medical appointments?: I choose not to answer this question Do you have trouble paying your heating and electricity bill?: I choose not to answer this question Do you have trouble taking care of your child, family member or friend?: I choose not to answer this question Do you have trouble with day-to-day activities such as bathing, preparing meals, shopping, managing finances, etc.?: I choose not to answer this question Are you currently unemployed and looking for a job?: I choose not to answer this question Are you interested in more education?: I choose not to answer this question Please select the resources that you would like help with: None Currently or been in a relationship where the following occur: I choose not to answer THRIVE Score: 0 AUDIT C Alcohol Use Questionnaire (AUDIT-C) 1. How often do you have a drink containing alcohol?: 2-3 times a week Total Score: 3 MARLYS-7 AMB Questionnaire MARLYS-7 Date MARLYS - 7 assessed: 03/09/25 Feeling nervous, anxious, or on edge: 0 = Not at all Not being able to stop or control worryin = Not at all Worrying too much about different things: 0 = Not at all Trouble relaxin = Not at all Being so restless that it is hard to sit still: 0 = Not at all Becoming easily annoyed or irritable: 0 = Not at all Feeling afraid as if something awful might happen: 0 = Not at all Total MARLYS-7 score (0-4 normal; 5-9 mild; 10-14 moderate; 15-21 severe): 0 Source: Developed by Drs. Ruslan Crespo, Shayna Otero, Bart Butler and colleagues, with an educational jess from [employer]. MARLYS-7 Assessment Billing MARLYS-7 Assessment Tool: MARLYS-7 Assessment 25538 Review of Systems Const Denies body aches, Denies chills, Denies excessive sweating, Denies fatigue, Denies fever(s) and Denies headache(s) Eyes Denies blurry vision ENT Denies dysphagia, Denies vertigo, Denies dizziness, Denies headache(s), Denies hearing loss and Denies tinnitus Card Denies chest pain, Denies chest pain with activity, Denies syncope, Denies irregular heart rhythm and Denies dyspnea Resp Denies chest congestion, Denies cough, Denies hemoptysis, Denies dyspnea and Denies wheezing GI Denies abdominal pain, Denies melena, Denies hematochezia, Denies coffee ground emesis, Denies dysphagia, Denies diarrhea, Denies nausea and Denies vomiting Denies urinary frequency, Denies dysuria, Denies urinary hesitancy and Denies urinary urgency Musc Denies arthralgias, Denies limited range of motion, Denies muscle cramps and Denies muscle weakness Skin/Breast Denies rash and Denies skin ulcer Neuro Denies Abnormal speech present, Denies confusion, Denies vertigo, Denies dizziness, Denies syncope, Denies headache(s), Denies memory loss and Denies seizure-like activity Psych Denies anxiety, Denies confusion, Denies depression, Denies memory loss, Denies panic attacks and Denies paranoia Endo Denies excessive sweating, Denies fatigue, Denies flushing, Denies polydipsia and Denies polyuria Aller/Immun Denies wheezing Physical exam (Primary Care) Vital Signs: Last Vital Signs Temp 96.9 F 03/09/25 08:28 Pulse 86 03/09/25 08:28 Resp 18 03/09/25 08:28 BP 152/80 H 03/09/25 08:28 Pulse Ox 94 03/09/25 08:28 Oxygen Delivery Method Room Air 03/09/25 08:28 BMI result Body Mass Index 33.1 BMI Assessment/Plan discussion: High BMI High, discussed plan: lifestyle, weight reduction, dietary and physical activity Tobacco/Smoking Status: Tobacco use Status Tobacco use date assessed 03/09/25 03/09/25 08:34 Patient Tobacco Use Status Never used Tobacco 03/09/25 08:34 e-Cigarette/Vaping Use Never Used 03/09/25 08:34 PHQ-9: PHQ-9 Score PHQ-9: Total score 0 03/09/25 08:34 Depression Screening Interpretation: Negative Thrive Assessment: Date of Thrive Assessment Date Thrive assessed 03/09/25 03/09/25 08:34 Currently or been in a relationship where the following occur: I choose not to answer Const General: cooperative, comfortable, no acute distress, alert and awake; No confusion Orientation/consciousness: oriented to person, oriented to place, patient oriented x3 and No confusion HENMT Head: Yes normocephalic Ears: external ears normal and TM's normal bilaterally Face and sinus: No sinus tenderness Mouth: Normal oral and palatal mucosa present and tongue normal Teeth and gingiva: dentition normal and gingiva normal Throat: Yes posterior oropharynx normal, Yes tonsils normal and Yes uvula midline Eyes Conjunctivae: conjunctivae normal Sclerae: sclerae normal Pupils: Equal, round and reactive pupils present EOM: EOMs intact bilaterally Direct Ophthalmoscopy: No no photophobia Neck Neck: Yes no lymphadenopathy, No tender and Yes no JVD Thyroid: Thyroid normal Carotids: no bruits Chest Chest palpation & inspection: no tenderness Resp Effort & Inspection: normal respiratory effort, no audible wheezes, not labored and no stridor Auscultation: no crackles, no rales, no rhonchi and no wheezes Cardio Jugular venous distension: no JVD Rate: regular rate, not bradycardic and not tachycardic Rhythm: regular rhythm Bruits: no carotid bruits Peripheral pulses: Peripheral pulses 2+ throughout GI Inspection: Yes normal to inspection, No abdominal wall ecchymosis and No visible herniation Palpation (GI): Soft to palpation, nontender, no guarding, not rigid and No hepatosplenomegaly present Auscultation: normoactive bowel sounds General: Yes no CVA tenderness Back/Spine/Pelvis Back: no CVA tenderness and No back tenderness Cervical Spine: cervical ROM normal Thoracic/Lumbar Spine: thoracic and lumbar spine normal to inspection, straight leg raise negative bilaterally, No thoraco-lumbar ROM limited and No lumbar spinal tenderness Skin Lesions: no lesions Rashes: no rashes Wounds: no wounds Neuro General: oriented to person, oriented to place, patient oriented x3, CN's II-XI intact bilaterally and No confusion Cranial nerves: Yes Equal, round and reactive pupils present and Yes Normal accommodation reflex present Cognition (Neuro): normal cognition Speech: No Abnormal speech present Gait exam (Neuro): Normal gait present Motor exam (neuro): 5/5 motor strength present throughout Extrem Right upper extremity: full ROM; no cyanosis Left upper extremity: full ROM; no cyanosis Right lower extremity: no edema Left lower extremity: no edema Psych Appearance: grossly normal Mental Status: mental status grossly normal Affect: normal affect Attitude: cooperative Thought process: Normal thought process present Coding Level of Care Code Est Pt Prev Care 40-64y(04482) Diagnoses Annual physical exam Z00.00 Asthma-COPD overlap syndrome J44.89 Impaired glucose metabolism R73.09 Mixed hyperlipidemia E78.2 Hyperlipidemia type: mixed hyperlipidemia Essential hypertension I10 Cervical myelopathy G95.9 Additional Codes MARLYS-7 Assessment Billing - MARLYS-7 Assessment Tool: MARLYS-7 Assessment 23206 ([id number]) PHQ-9 - 30457 - PHQ-9 Billing: Yes ([id number]) Assessment & Plan Assessment & Plan (1) Annual physical exam: Code(s): Z00.00 - Encounter for general adult medical examination without abnormal findings Category: Medical Plan: As per HPI (2) Asthma-COPD overlap syndrome: Code(s): J44.89 - Other specified chronic obstructive pulmonary disease Category: Medical Plan: Patient continues to follow pulmonology. She has been started on Daliresp which seems to have been helping her pulmonary status. She has been on a lot of steroids due to allergic reactions (3) Impaired glucose metabolism: Code(s): R73.09 - Other abnormal glucose Category: Medical Plan: Most recent fasting blood sugar has improved. Has not not been on corticosteroids recently. (4) Hyperlipidemia: Code(s): E78.5 - Hyperlipidemia, unspecified Category: Medical Qualifiers: Hyperlipidemia type: mixed hyperlipidemia Qualified Code(s): E78.2 - Mixed hyperlipidemia Plan: Most recent lipid panel slightly elevated total cholesterol. She reports some dietary indiscretion recently Will continue to follow lipid panel to ensure stable. Goal LDL to be below 130 (5) Essential hypertension: Code(s): I10 - Essential (primary) hypertension Category: Medical Plan: Patient's blood pressure slightly elevated today in office, she reports monitoring her blood pressure at home and reports normal systolic readings . Has lost significant amount of weight since last office visit using weight watchers and being more physically active Advised to do home blood pressure monitoring more regularly and contact us back if consistently above 140/90. (6) Cervical myelopathy: Code(s): G95.9 - Disease of spinal cord, unspecified Category: Medical Plan: Patient's signs and symptoms surgeon for a muscular issue in his cervical spine and trapezius area. Will likely benefit from physical therapy. Will supply patient with muscle relaxer to use to help release muscle tension. Will send for x-ray to evaluate for any concerning osteoarthritis in the cervical spine. Orders: Orders Hemoglobin A1c Today R73.09 - Other abnormal glucose Lipid Panel Today E78.2 - Mixed hyperlipidemia Complete Blood Count no Diff Today E78.2 - Mixed hyperlipidemia XR cervical spine 4V Today G95.9 - Disease of spinal cord, unspecified Comprehensive [place]. Panel Fast Today R73.09 - Other abnormal glucose Medications: New cyclobenzaprine 10 mg PO BEDTIME 10 tabs 0RF 10 days G95.9 - Disease of spinal cord, unspecified prednisone 20 mg PO DAILY 5 tabs 0RF 5 days J44.89 - Other specified chronic obstructive pulmonary disease
--- OUTSIDE RECORDS SUMMARY | 2025-03-09 09:39 | XMS_ITS | Clinical Summary ---
Author Organization [facility] Address [address] [place] [address] Phone Care Team Providers Care Security Intern Name Role Phone Cy Huggins Primary Care Provider +1- [phone] Allergies Active Allergy Reactions Criticality Noted Date [...] of :1902 Address: [address] [place] [address] Payer ID:Not on file Type:Indemnity Address: [employer] Claims [address] [place] [phone] GENERIC COMMERCIAL GENERIC COMMERCIAL GENERIC COMMERCIAL GENERIC COMMERCIAL GENERIC COMMERCIAL Member Subscriber Plan / Payer (Ef fective 2017-Present) Name:Samina Rojas Relation to Subscriber:Spouse Name:MANUELITO ROJAS Date of :1902 Address: [address] [place] [address] Payer ID:Not on file Type:Indemnity [facility] [address] [place] [phone] GENERIC COMMERCIAL Member Subscriber Plan / Payer (Ef fective 2017-Present) Name:Samina Rojas Relation to Subscriber:Spouse Name:MANUELITO ROJAS Date of :1902 Address: [address] [place] [address] Payer ID:Not on file Type:Indemnity Address: [employer] Claims [address] [place] [phone] GENERIC COMMERCIAL Member Subscriber Plan / Payer (Ef fective 2017-Present) Name:Samina Rojas Relation to Subscriber:Spouse Name:MANUELITO ROJAS Date of :1902 Address: [address] [place] [address] Payer ID:Not on file Type:Indemnity Address: [employer] Claims [address] [place] [phone] Care Teams Security Intern Relationship Specialty Start Date End Date Cy Huggins DO [address] [place] [address] PCP - General Internal Medicine 11/18/17 Additional Source Comments The information contained in this document represents components of the legal health record. It is not the complete legal health record.[facility]
--- OUTSIDE RECORDS SUMMARY | 2025-03-09 09:39 | XMS_ITS | Encounter Summary ---
Author Organization [facility] Address [address] [place] [address] Phone Care Team Providers Care Child Care Lead Teacher Name Role Phone Cy Huggins DO Primary Care Provider +1- [phone] Reason for Referral * Physical Therapy (Routine) - Closed Specialty Diagnoses / Procedures Referred By Contac t Referred To Contact Physical Therapy Diagnoses Encounter for rehabilitation System, Provider Not In, PhD [address] [address] Phone: tel: Referral ID Status Reason Start Date Expiration Date Visits Re quested Visits Authorized [id number] Closed 12/03/2017 06/29/2018 7 7 Encounter Details Date Type Department Care Team (Latest Contact Info) Description 11/18/2017 Transcribe Orders [facility] [address] [place] [address] InstrumAly MD [address] [place] [address] [place] [address] Encounter for rehabilitation (Primary Dx) Social History [...] Diagnoses Orde r Schedule Ambulatory referral to [facility] Physical Therapy Outpatient Referral Routine Encounter for rehabilitation Ordered: 11/18/2017 documented as of this encounter Visit Diagnoses Diagnosis Encounter for rehabilitation- Primary documented in this encounter Care Teams Child Care Lead Teacher Relationship Specialty Start Date End Date Cy Huggins DO [address] [place] [address] PCP - General Internal Medicine 11/18/17 documented as of this encounter Additional Source Comments The information contained in this document represents components of the legal health record. It is not the complete legal health record.[facility]
--- OUTSIDE RECORDS SUMMARY | 2025-03-09 09:39 | XMS_ITS | Patient Health Record ---
Author Organization [facility] Address [address] [facility] [place] [address] Care Team Providers Care Vehicle Monitor Technician Name Role Phone Jorge Slaughter MD Primary Care Provider Susana Cook Unavailable [phone] Allergies Allergen (clinical drug ingredient) Drug/Non Drug [...] can not walk long distances, can use Plate Finisher for work and limit standing/walking until further [...] primary osteoarthritis of the ankle and/or foot (996828844) Primary osteoarthritis, right ankle and foot (M19.071) Active confirmed Problem Mononeuropathy of lower limb (565237339) Neuritis of left foot (G57.92) Active confirmed Problem Localized, primary osteoarthritis of the ankle and/or foot (847288792) Osteoarthritis of right ankle and foot (M19.071) Active confirmed Problem Localized, primary osteoarthritis of the ankle and/or foot (076018725) Osteoarthritis of left ankle and foot (M19.072) Active confirmed Problem Pes cavus (74913831) Pes cavus (Q66.7) Active confirmed Plan Of Treatment Pending Test Test Name Order Date X ray : Foot, left 3V 04/22/2018 X ray : Foot, left 3V 05/08/2021 X ray : Foot, left 3V 12/04/2021 X ray : Foot, right 3V 12/04/2021 X ray : Foot, right 3V 03/10/2018 X ray : Foot, right 3V 05/08/2021 10570- Debride <25 sq cm 02/06/2018 76459 I&D ABSCESS- SIMPLE,SINGLE 018 Insurance Providers Payer Name Payer Address Payer Phone Subscriber Number Group Number Insured Name Patient Relationship to Insured Coverage Start Date Coverage End Date [facility] [address] [place] [address] [phone] [id number] Samina Rojas Self - patient is the insured Medical (General) History Medical History History ICD Code Back,Hip,and Knee pain Cholesterol Lung disease Eczema Reflux ( GERD) Thyroid disorder Chicken pox Joint implants/screws Surgical History Surgery Date(Month/Year) right hip replacement 04/2017 left foot surgery vaginal sling
== END 2025-03-09 09:07 | disposition home or self-care (01) ==
LOC: HO.HMCH 08:25
PROVIDERS: PCP Physician Assistant; Visit Provider Physician Assistant
DX: Z00.00 Encounter for general adult medical examination without abnormal findings (principal); J44.89 Other specified chronic obstructive pulmonary disease; G95.9 Disease of spinal cord, unspecified; R73.09 Other abnormal glucose; E78.2 Mixed hyperlipidemia; I10 Essential (primary) hypertension

== ENCOUNTER → 2025-03-09 08:24 | Outpatient (BNVA) | payer BC, SELFPAY | PROVIDERS: PCP Physician Assistant; Visit Provider Physician Assistant | DX: Z00.00 Encounter for general adult medical examination without abnormal findings (principal); J44.89 Other specified chronic obstructive pulmonary disease; G95.9 Disease of spinal cord, unspecified; J45.40 Moderate persistent asthma, uncomplicated; M25.50 Pain in unspecified joint; E03.9 Hypothyroidism, unspecified; E78.2 Mixed hyperlipidemia; R26.9 Unspecified abnormalities of gait and mobility; R73.09 Other abnormal glucose; I10 Essential (primary) hypertension | CPT/HCPCS: 96127 ==

== ENCOUNTER 2025-03-10 07:21 | Outpatient (REF) | payer BC, SELFPAY ==
--- NOTE | ~2025-03-10 | XR_ITS ---
EXAMINATION: XR CERVICAL SPINE CLINICAL INFORMATION: G95.9 - Disease of spinal cord, unspecified COMPARISON: None available. TECHNIQUE: AP oblique lateral and atlantoodontoid views FINDINGS: Craniocervical junction is intact. Marginal osteophyte formation and/syndesmophyte formation, endplate sclerosis, subchondral cyst formation, decreased intervertebral disc height at C5-6 and C6-7 levels. Grade 1 anterolisthesis C4-5. Bilateral, left greater than right, neuroforamina narrowing C4-5 C5-6 and C6-7 levels. No lytic or blastic lesions. Upper airway is patent. XR/XR cervical spine 4V IMPRESSION: Cervical spondylosis, moderate to severe C5-6 and C6-7 levels. Grade 1 anterolisthesis C4-5 likely degenerative. Electronically signed by: Erik Reveles MD 03/10/2025 08:52 AM EDT
--- NOTE | ~2025-03-10 | MM_ITS ---
EXAMINATION: MM SCREENING DIGITAL BREAST TOMOSYNTHESIS, BILATERAL CLINICAL INFORMATION: Screening. Asymptomatic. COMPARISON: Mammography: Comparison is made with available priors TECHNIQUE: Digital breast mammography with tomosynthesis is performed in both the craniocaudal and mediolateral oblique views along with computer-aided detection (CAD). FINDINGS: There are scattered areas of fibroglandular density (ACR BI-RADS breast composition Category b). There are no significant masses, abnormal calcifications, or other abnormalities. MM/MM tomosynthesis screening BI IMPRESSION: No mammographic evidence of malignancy. ASSESSMENT: BI-RADS BI-RADS 1 - Negative RECOMMENDATION: Routine annual mammography screening. 1 year F/U This examination should not preclude the clinical evaluation of a suspicious palpable abnormality. This patient's information was entered into a reminder system with a target due date for their next mammogram. Electronically signed by: Melisa Brown DO 03/14/2025 05:31 PM EDT
--- OUTSIDE RECORDS SUMMARY | 2025-03-10 07:23 | XMS_ITS | Clinical Summary ---
Author Organization [facility] Address [address] [place] [address] Phone Care Team Providers Care Grain Grader Name Role Phone Cy Huggins Primary Care Provider +1- [phone] Allergies Active Allergy Reactions Criticality Noted Date [...] of :1902 Address: [address] [place] [address] Payer ID:Not on file Type:Indemnity Address: [employer] Claims [address] [place] [phone] GENERIC COMMERCIAL GENERIC COMMERCIAL GENERIC COMMERCIAL GENERIC COMMERCIAL GENERIC COMMERCIAL Member Subscriber Plan / Payer (Ef fective 2017-Present) Name:Samina Rojas Relation to Subscriber:Spouse Name:MANUELITO ROJAS Date of :1902 Address: [address] [place] [address] Payer ID:Not on file Type:Indemnity [facility] [address] [place] [phone] GENERIC COMMERCIAL Member Subscriber Plan / Payer (Ef fective 2017-Present) Name:Samina Rojas Relation to Subscriber:Spouse Name:MANUELITO ROJAS Date of :1902 Address: [address] [place] [address] Payer ID:Not on file Type:Indemnity Address: [employer] Claims [address] [place] [phone] GENERIC COMMERCIAL Member Subscriber Plan / Payer (Ef fective 2017-Present) Name:Samina Rojas Relation to Subscriber:Spouse Name:MANUELITO ROJAS Date of :1902 Address: [address] [place] [address] Payer ID:Not on file Type:Indemnity Address: [employer] Claims [address] [place] [phone] Care Teams Grain Grader Relationship Specialty Start Date End Date Cy Huggins DO [address] [place] [address] PCP - General Internal Medicine 11/18/17 Additional Source Comments The information contained in this document represents components of the legal health record. It is not the complete legal health record.[facility]
--- OUTSIDE RECORDS SUMMARY | 2025-03-10 07:23 | XMS_ITS | Encounter Summary ---
Author Organization [facility] Address [address] [place] [address] Phone Care Team Providers Care Manager Secondary Name Role Phone Cy Huggins DO Primary Care Provider +1- [phone] Reason for Referral * Physical Therapy (Routine) - Closed Specialty Diagnoses / Procedures Referred By Contac t Referred To Contact Physical Therapy Diagnoses Encounter for rehabilitation System, Provider Not In, PhD [address] [address] Phone: tel: Referral ID Status Reason Start Date Expiration Date Visits Re quested Visits Authorized [id number] Closed 12/03/2017 06/29/2018 7 7 Encounter Details Date Type Department Care Team (Latest Contact Info) Description 11/18/2017 Transcribe Orders [facility] [address] [place] [address] InstrumAly MD [address] [place] [address] [place] [address] Encounter for rehabilitation (Primary Dx) Social History [...] Diagnoses Orde r Schedule Ambulatory referral to [facility] Physical Therapy Outpatient Referral Routine Encounter for rehabilitation Ordered: 11/18/2017 documented as of this encounter Visit Diagnoses Diagnosis Encounter for rehabilitation- Primary documented in this encounter Care Teams Manager Secondary Relationship Specialty Start Date End Date Cy Huggins DO [address] [place] [address] PCP - General Internal Medicine 11/18/17 documented as of this encounter Additional Source Comments The information contained in this document represents components of the legal health record. It is not the complete legal health record.[facility]
--- OUTSIDE RECORDS SUMMARY | 2025-03-10 07:23 | XMS_ITS | Patient Health Record ---
Author Organization [facility] Address [address] [facility] [place] [address] Care Team Providers Care Fur Dyer Name Role Phone Jorge Slaughter MD Primary Care Provider Susana Cook Unavailable [phone] Allergies Allergen (clinical drug ingredient) Drug/Non Drug [...] can not walk long distances, can use Lpn Cma for work and limit standing/walking until further [...] primary osteoarthritis of the ankle and/or foot (082770997) Primary osteoarthritis, right ankle and foot (M19.071) Active confirmed Problem Mononeuropathy of lower limb (282919666) Neuritis of left foot (G57.92) Active confirmed Problem Localized, primary osteoarthritis of the ankle and/or foot (150869206) Osteoarthritis of right ankle and foot (M19.071) Active confirmed Problem Localized, primary osteoarthritis of the ankle and/or foot (415732383) Osteoarthritis of left ankle and foot (M19.072) Active confirmed Problem Pes cavus (97885054) Pes cavus (Q66.7) Active confirmed Plan Of Treatment Pending Test Test Name Order Date X ray : Foot, left 3V 04/22/2018 X ray : Foot, left 3V 05/08/2021 X ray : Foot, left 3V 12/04/2021 X ray : Foot, right 3V 12/04/2021 X ray : Foot, right 3V 03/10/2018 X ray : Foot, right 3V 05/08/2021 13354- Debride <25 sq cm 02/06/2018 [address]3240 I&D ABSCESS- SIMPLE,SINGLE 018 Insurance Providers Payer Name Payer Address Payer Phone Subscriber Number Group Number Insured Name Patient Relationship to Insured Coverage Start Date Coverage End Date [facility] [address] [place] [address] [phone] [id number] Samina Rojas Self - patient is the insured Medical (General) History Medical History History ICD Code Back,Hip,and Knee pain Cholesterol Lung disease Eczema Reflux ( GERD) Thyroid disorder Chicken pox Joint implants/screws Surgical History Surgery Date(Month/Year) right hip replacement 04/2017 left foot surgery vaginal sling
== END 2025-03-10 07:22 | disposition home or self-care (01) ==
LOC: HO.MAMMO 07:21
PROVIDERS: PCP Physician Assistant; Visit Provider Physician Assistant
DX: Z12.31 Encounter for screening mammogram for malignant neoplasm of breast (principal); G95.9 Disease of spinal cord, unspecified
CPT/HCPCS: 72050; 77063; 77067

== ENCOUNTER → 2025-03-10 08:19 | Outpatient (BNV) | payer BC, SELFPAY | PROVIDERS: PCP Physician Assistant; Visit Provider Radiology Diagnostic Radiology | DX: M47.812 Spondylosis without myelopathy or radiculopathy, cervical region (principal) | CPT/HCPCS: 72050; 77063; 77067 ==

== ENCOUNTER 2025-03-16 13:55 | Outpatient (AMB) | payer BC, SELFPAY ==
--- NOTE | 2025-03-16 13:58 | A.OFFVIS_ITS ---
Vital Signs 03/16/25 14:08 Height 5 ft 5 in Weight 199 lb BMI 33.1 BP 130/80 Blood Pressure Location Lt brachial Position Sitting Pulse 80 Pulse Source Pulse Oximeter Pulse Oximetry (%) 98 Oxygen Delivery Method Room Air Intake Visit Reasons: hand OA/ MD req sooner appt for pt Intake Note: New patient presents for hand OA. Patient stated she had a spine xray and it shows moderate to severe degeneration. Patient has hand pain for about six month. Patient takes Aleve but she stated it doesn't work. Allergies cephalexin (From KEFLEX) Allergy (Intermediate, Verified 03/16/25 14:08) RASH chlorhexidine (CHLORHEXIDINE) Allergy (Intermediate, Verified 03/16/25 14:08) ITCHY,RASH ibuprofen (IBUPROFEN) Allergy (Intermediate, Verified 03/16/25 14:08) RASH- PER H&P latex (LATEX) Allergy (Intermediate, Verified 03/16/25 14:08) RASH HPI Comments Details: Patient is a 60-year-old female with asthma/COPD overlap, hypothyroidism, hyperlipidemia, restless legs syndrome, GERD, peripheral neuropathy of unknown etiology here today for evaluation of hand pain in the setting of positive double-stranded DNA Past 6-9 months noting bilateral hand pain especially at the base of the thumbs. This pain has been progressively getting worse. Followed up with her primary who did blood work which showed a positive double-stranded DNA. X-rays showed degenerative changes. She also notes worsening neck pain, x-rays shows cervical spondylolysis Denies rashes, photosensitivity, alopecia, oral/nasal ulcers, sicca symptoms, lymphadenopathy, chest pain/shortness of breath, inflammatory type joint pain, foamy urine, lower extremity edema, muscle weakness, Raynaud's Also denies history of seizure, CVA, psychosis, history of cytopenias, history of VTE including PE or DVTs [facility] Medical History (Updated 03/16/25 @ 15:19 by Paula Alvarez MD) Polyarticular osteoarthritis Sinusitis COVID-19 Asthma-COPD overlap syndrome Tachycardia Bronchitis Dyspnea Lower extremity edema Diastolic dysfunction 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 Brother No problems noted. Brother No problems noted. Sister No problems noted. Sister No problems noted. Sister No problems noted. Son No problems noted. Son No problems noted. Son No problems noted. Daughter No problems noted. Social History (Updated 03/09/25 @ 08:42 by Jose Oliveira PA-C) Household Members: Family Household Members Other:: spouse/son Housing: House Alcohol intake: current Alcohol intake frequency: a few times a month Alcohol type: wine Patient Tobacco Use Status: Never used Tobacco e-Cigarette/Vaping Use: Never Used Second Hand Smoke Exposure: No service: No Current occupational status: employed Current occupational exposures/hazards: No Cognitive needs: No Hearing needs: No Vision needs: No Review of Systems Const Details: Review of Systems Constitutional: Denies fever, chills, weight loss ENT: Denies vision changes, eye pain or eye redness, dental caries, dry mouth GI: Denies nausea, vomiting, diarrhea, abdominal pain, change in BM Pulm: Denies SOB, BERMUDEZ, hemoptysis, wheezing Cards: Denies chest pain, palpitations Skin: Denies Raynaud's, rash, nail changes, photosensitivity, SAND WORKER: Denies headaches, weakness, paresthesias, recurrent falls MSK: as per HPI All other systems reviewed and are unremarkable except noted above Physical Exam Exam Exam: Vital signs reviewed Physical Examination CONSTITUITIONAL Patient alert and cooperative. Well appearing and in no apparent painful distress MSK Hands * Right Hand: Able to make a fist. No swelling or tenderness to palpation of the MCPs, PIPs or DIPs. * Left Hand: Able to make a fist. No swelling or tenderness to palpation of the MCPs, PIPs or DIPs. * Herbedens nodes noted bilaterally * Bilateral positive CMC grind test Wrists * Right Wrist: Full ROM to flexion and extension. No swelling or TTP * Left Wrist: Full ROM to flexion and extension. No swelling or TTP Elbows * Right Elbow: Full ROM. No swelling or TTP. No TTP of the medial epicondyle. No TTP of the lateral epicondyle * Left Elbow: Full ROM. No swelling or TTP. No TTP of the medial epicondyle. No TTP of the lateral epicondyle Shoulders * Right shoulder: Full ROM. No swelling noted. No TTP of the AC joint. No TTP of the subacromial bursa. No TTP of the posterior shoulder * Left shoulder: Full ROM. No swelling noted. No TTP of the AC joint. No TTP of the subacromial bursa. No TTP of the posterior shoulder Knees * Right knee: Full ROM. No swelling noted. No TTP of the knee joint line. No TTP of pes anserine bursa * Left knee: Full ROM. No swelling noted. No TTP of the knee joint line. No TTP of pes anserine bursa. * Crepitations felt bilaterally Ankles * Right ankle: Good ankle dorsiflexion and plantar flexion. No swelling. No TTP of the ankle joint * Left ankle: Good ankle dorsiflexion and plantar flexion. No swelling. No TTP of the ankle joint Feet * Right foot: Negative squeeze test * Left foot: Negative squeeze test Tender points? * No tenderness to palpation of the bilateral trapezius, supraspinatus, anterior costochondral junctions, bilateral suboccipital muscle insertions SKIN No rashes Vital Signs: Last Vital Signs Pulse 80 03/16/25 14:08 BP 130/80 03/16/25 14:08 Pulse Ox 98 03/16/25 14:08 Oxygen Delivery Method Room Air 03/16/25 14:08 BMI result Body Mass Index 33.1 Results Reviewed Results Reviewed: Laboratory Tests 01/27/25 03/08/25 07:53 07:47 WBC 6.0 RBC 4.17 L Hgb 12.1 Hct 36.4 L Plt Count 268 ESR 28 H 23 H Sodium 140 Potassium 3.9 Chloride 107 Carbon Dioxide 23 BUN 12 Creatinine 0.60 AST 33 H ALT 37 H C-Reactive Protein 0.39 Laboratory Tests 12/14/24 10:22 Rheumatoid Factor < 13.0 Cycl Citrul Peptide IgG <16 STEPHEN Screen NEGATIVE Laboratory Tests 01/27/25 07:53 SS-A/Ro Antibody <1.0 NEG SS-B/La Antibody <1.0 NEG Sm (Fajardo) Antibody <1.0 NEG SM/SUPERVISOR CORDUROY CUTTING IgG Antibody <1.0 NEG Double Strand DNA Ab 46 H Complement C3 152 Complement C4 25 XR Bilateral Hands 11/2024 FINDINGS (left): Degenerative changes in the carpal bones. No acute cortical disruption or malalignment in the carpal bones. Metacarpals are intact. Phalanges are intact with normal alignment. Subtle old deformity at the proximal aspect middle phalanx third digit. Distal radius and ulna are intact. No lytic or blastic lesions. IMPRESSION: No acute fracture or dislocation. Old healed fracture distal phalanx third digit. Degenerative changes first carpometacarpal joint. FINDINGS (Right): There is a deformity with callus formation in the proximal to mid diaphysis, fifth metacarpal. No acute cortical disruption in the metacarpals. The phalanges are intact with normal alignment. The carpal bones are intact with normal alignment. Distal radius and ulna are intact. No lytic or blastic lesions. IMPRESSION: Old traumatic deformity, fifth metacarpal. XR C Spine 02/2025 FINDINGS: Craniocervical junction is intact. Marginal osteophyte formation and/syndesmophyte formation, endplate sclerosis, subchondral cyst formation, decreased intervertebral disc height at C5-6 and C6-7 levels. Grade 1 anterolisthesis C4-5. Bilateral, left greater than right, neuroforamina narrowing C4-5 C5-6 and C6-7 levels. No lytic or blastic lesions. Upper airway is patent. IMPRESSION: Cervical spondylosis, moderate to severe C5-6 and C6-7 levels. Grade 1 anterolisthesis C4-5 likely degenerative. Assessment & Plan Assessment & Plan (1) Polyarticular osteoarthritis: Code(s): M15.9 - Polyosteoarthritis, unspecified Category: Medical Plan: #Polyarticular OA Patient is a 60-year-old female here today to establish care for bilateral hand pain. Exam and x-rays consistent with osteoarthritis. She also has a degenerative changes in her C-spine which is causing neck pain. She has a positive double-stranded DNA but this is in isolation and at this time she does not have any evidence of any autoimmune or connective tissue disease. No evidence of synovitis on examination Plan - Recommending topical diclofenac 4 times a day and copper compression gloves - Follow up with pain management re neck pain - Consider 1st CMC steroid injections if topical diclofenac is not efficacious - RTC 6 months Plan I spent 30 minutes reviewing the record and labs, taking a history, examining the patient, discussing the treatment plan, ordering diagnostic work up and documenting in the medical record Coding Level of Care Code New Pt Level 3 (02628) Complex EM visit Add On G2211 Diagnoses Polyarticular osteoarthritis M15.9
[2025-03-16 14:08] VITALS: BP 130/80; PULSE 80; O2SAT 98; BMI 33.1
--- OUTSIDE RECORDS SUMMARY | 2025-03-16 17:39 | XMS_ITS | Clinical Summary ---
Author Organization [facility] Address [address] [place] [address] Phone Care Team Providers Care Licensed Electrician Name Role Phone Cy Huggins Primary Care Provider +1- [phone] Allergies Active Allergy Reactions Criticality Noted Date [...] of :1902 Address: [address] [place] [address] Payer ID:Not on file Type:Indemnity Address: [employer] Claims [address] [place] [phone] GENERIC COMMERCIAL GENERIC COMMERCIAL GENERIC COMMERCIAL GENERIC COMMERCIAL GENERIC COMMERCIAL Member Subscriber Plan / Payer (Ef fective 2017-Present) Name:Samina Rojas Relation to Subscriber:Spouse Name:MANUELITO ROJAS Date of :1902 Address: [address] [place] [address] Payer ID:Not on file Type:Indemnity [facility] [address] [place] [phone] GENERIC COMMERCIAL Member Subscriber Plan / Payer (Ef fective 2017-Present) Name:Samina Rojas Relation to Subscriber:Spouse Name:MANUELITO ROJAS Date of :1902 Address: [address] [place] [address] Payer ID:Not on file Type:Indemnity Address: [employer] Claims [address] [place] [phone] GENERIC COMMERCIAL Member Subscriber Plan / Payer (Ef fective 2017-Present) Name:Samina Rojas Relation to Subscriber:Spouse Name:MANUELITO ROJAS Date of :1902 Address: [address] [place] [address] Payer ID:Not on file Type:Indemnity Address: [employer] Claims [address] [place] [phone] Care Teams Licensed Electrician Relationship Specialty Start Date End Date Cy Huggins DO [address] [place] [address] PCP - General Internal Medicine 11/18/17 Additional Source Comments The information contained in this document represents components of the legal health record. It is not the complete legal health record.[facility]
--- OUTSIDE RECORDS SUMMARY | 2025-03-16 17:39 | XMS_ITS | Patient Health Record ---
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 and limit standing/walking until further [...] primary osteoarthritis of the ankle and/or foot (091328465) Primary osteoarthritis, right ankle and foot (M19.071) Active confirmed Problem Mononeuropathy of lower limb (622514618) Neuritis of left foot (G57.92) Active confirmed Problem Localized, primary osteoarthritis of the ankle and/or foot (491475060) Osteoarthritis of right ankle and foot (M19.071) Active confirmed Problem Localized, primary osteoarthritis of the ankle and/or foot (219541374) Osteoarthritis of left ankle and foot (M19.072) Active confirmed Problem Pes cavus (58459425) Pes cavus (Q66.7) Active confirmed Plan Of Treatment Pending Test Test Name Order Date X ray : Foot, left 3V 04/22/2018 X ray : Foot, left 3V 05/08/2021 X ray : Foot, left 3V 12/04/2021 X ray : Foot, right 3V 12/04/2021 X ray : Foot, right 3V 03/10/2018 X ray : Foot, right 3V 05/08/2021 73259- Debride <25 sq cm 02/06/2018 43682 I&D ABSCESS- SIMPLE,SINGLE 018 Insurance Providers Payer Name Payer Address Payer Phone Subscriber Number Group Number Insured Name Patient Relationship to Insured Coverage Start Date Coverage End Date [facility] [address] [place] [address] [phone] [id number] Samina Rojas Self - patient is the insured Medical (General) History Medical History History ICD Code Back,Hip,and Knee pain Cholesterol Lung disease Eczema Reflux ( GERD) Thyroid disorder Chicken pox Joint implants/screws Surgical History Surgery Date(Month/Year) right hip replacement 04/2017 left foot surgery vaginal sling
--- OUTSIDE RECORDS SUMMARY | 2025-03-16 17:39 | XMS_ITS | Encounter Summary ---
Author Organization [facility] Address [address] [place] [address] Phone Care Team Providers Care Veneer Jointer Offbearer Name Role Phone Cy Huggins DO Primary Care Provider [phone]- [phone] Reason for Referral * Physical Therapy (Routine) - Closed Specialty Diagnoses / Procedures Referred By Contac t Referred To Contact Physical Therapy Diagnoses Encounter for rehabilitation System, Provider Not In, PhD [address] [address] Phone: tel: Referral ID Status Reason Start Date Expiration Date Visits Re quested Visits Authorized [id number] Closed 12/03/2017 06/29/2018 7 7 Encounter Details Date Type Department Care Team (Latest Contact Info) Description 11/18/2017 Transcribe Orders [facility] Rehabilitation Services [address] [place] [address] InstrumAly MD [address] [place] [address] [place] [address] Encounter for rehabilitation (Primary Dx) Social History [...] Diagnoses Orde r Schedule Ambulatory referral to [facility] Physical Therapy Outpatient Referral Routine Encounter for rehabilitation Ordered: 11/18/2017 documented as of this encounter Visit Diagnoses Diagnosis Encounter for rehabilitation- Primary documented in this encounter Care Teams Veneer Jointer Offbearer Relationship Specialty Start Date End Date Cy Huggins DO [address] [place] [address] PCP - General Internal Medicine 11/18/17 documented as of this encounter Additional Source Comments The information contained in this document represents components of the legal health record. It is not the complete legal health record.[facility]
== END 2025-03-16 14:50 | disposition home or self-care (01) ==
LOC: HO.RHES 13:56
PROVIDERS: PCP Physician Assistant; Visit Provider Student in an Organized Health Care Education/Training Program
DX: M15.9 Polyosteoarthritis, unspecified (principal)
CPT/HCPCS: 99203

== ENCOUNTER → 2025-04-07 11:53 | Outpatient (BNV) | payer BC, SELFPAY | PROVIDERS: PCP Physician Assistant; Visit Provider Radiology Diagnostic Radiology | DX: M47.816 Spondylosis without myelopathy or radiculopathy, lumbar region (principal); M48.02 Spinal stenosis, cervical region | CPT/HCPCS: 72141 ==

== ENCOUNTER 2025-04-07 11:55 | Outpatient (REF) | payer BC, SELFPAY ==
--- NOTE | ~2025-04-07 | MR_ITS ---
EXAMINATION: MR CERVICAL SPINE WITHOUT CONTRAST CLINICAL INFORMATION: Neck pain radiating to the left trapezius area. Cervical radiculopathy. COMPARISON: No prior MRI. Cervical radiographs 03/10/2025. TECHNIQUE: Multiplanar multisequence MR imaging of the cervical spine was done prior to and without the administration IV gadolinium. Examination was performed on a 1.5 Lindsay Siemens unit, using standard sequences. FINDINGS: CORONAL ALIGNMENT: -There is a minimal right convex scoliosis. SAGITTAL ALIGNMENT: -There is straightening of the normal lordosis, nonspecific. -There is a 2 mm degenerative anterolisthesis of C4 on C5. There is a trace retrolisthesis of C5 on C6. No additional subluxations. CRANIOCERVICAL JUNCTION/C1-2 ARTICULATIONS: -Intact and aligned. There are mild degenerative changes in the anterior atlantoaxial joint. VERTEBRAL BODIES/BONE MARROW: -There are edematous type endplate changes present at C5-C6. There is degenerative edema involving the left C4-5 facet joints. -No additional gross bone marrow edema, or abnormal infiltrating bone marrow signal. -No compression deformities or acute fractures. DISCS: -Moderate to severe loss of disc height and signal at C5-6 and C6-7. -There is moderate loss of height and signal at C7-T1. -There is otherwise mild loss of disc signal at the other levels. CERVICAL CORD: -Normal in caliber and signal throughout. There is no expansion or thinning. There is no definite cord impingement. PARAVERTEBRAL SOFT TISSUES: -There is no paravertebral or paraspinous edema or abnormal fluid collection. The thyroid gland is obscured by a saturation band. The prevertebral soft tissues are normal. VISUALIZED INTRACRANIAL STRUCTURES: -Within normal limits. AXIAL DISC SPACE IMAGING: C2-C3: No central canal or neural foraminal narrowing. There is mild right greater than left facet degeneration. C3-C4: No central canal or neural foraminal narrowing. There is mild bilateral facet degeneration and hypertrophy. C4-C5: There is a minimal degenerative anterolisthesis at this level. There are severe left hypertrophic degenerative facet changes with facet edema. There is mild bilateral uncinate spurring. There is minimal central canal narrowing, and severe left neural foraminal impingement. There is mild right neural foraminal narrowing. C5-C6: There is a diffuse disc osteophytic bulge, contiguous with left greater than right uncinate spurs. Mild bilateral facet degeneration. There is mild to moderate central canal narrowing. There is mild left greater than right lateral recess narrowing. There is mild right and moderate to severe left neural foraminal narrowing. C6-C7: There is a shallow diffuse disc osteophytic bulge extending into both foraminal zones. There are moderate bilateral hypertrophic uncinate changes. Mild bilateral facet spurring. There is mild central canal narrowing. There is no lateral recess narrowing. There is moderate bilateral neural foraminal narrowing. C7-T1: There is no central canal or neural foraminal narrowing of significance. MR/MR cervical spine wo con IMPRESSION: 1. Mild to moderate spondylosis of the cervical spine, most significant at C4-5 and C5-C6. There are edematous type endplate changes present at C5-6. 2. There is no high-grade or significant central canal stenosis or cord impingement. No cord signal abnormalities. 3. Severe degenerative left facet hypertrophy and edematous changes at C4-5, contributing to severe left neural foraminal impingement at this level. 4. Moderate to severe left neural foraminal narrowing at C5-6. 5. See above for further details. Electronically signed by: Lefty Fitzgerald MD 04/07/2025 12:50 PM EDT
== END 2025-04-07 11:56 | disposition home or self-care (01) ==
LOC: HO.MRI 11:55
PROVIDERS: PCP Physician Assistant; Visit Provider Physician Assistant
DX: G95.9 Disease of spinal cord, unspecified (principal)
CPT/HCPCS: 72141

== ENCOUNTER 2025-04-14 10:19 | Outpatient (REF) | payer BC, SELFPAY ==
--- NOTE | ~2025-04-14 | XR_ITS ---
CLINICAL HISTORY: M54.12 - Radiculopathy, cervical region --- Additional Notes or Special Instructions: a p, lateral with flex ext views 5 views cervical spine Comparison: None provided Findings: Normal alignment. Alignment is maintained with flexion and extension. No acute fractures or dislocation. C5-C6 degenerative disc change. No prevertebral soft tissue swelling. IMPRESSION: No acute findings. This document has been electronically signed by: Ron Malagon MD on 04/15/2025 10:19:52
== END 2025-04-14 10:20 | disposition home or self-care (01) ==
LOC: HO.HOSX 10:19
PROVIDERS: PCP Physician Assistant; Referring Provider Physician Assistant; Visit Provider Physician Assistant
DX: M54.12 Radiculopathy, cervical region (principal)
CPT/HCPCS: 72050

== ENCOUNTER 2025-04-14 10:19 | Outpatient (AMB) | payer BC, SELFPAY ==
--- NOTE | 2025-04-14 10:23 | A.SPINEOV_ITS ---
Vital Signs 04/14/25 10:25 Height 5 ft 5 in Weight 199 lb BMI 33.1 Intake Visit Reasons: Spondylopathy Intake Note: Ms. Rojas is here today c/o neck pain that radiates to the left shoulder. Material Disposition Inspector Required: No Allergies cephalexin (From KEFLEX) Allergy (Intermediate, Verified 04/14/25 10:25) RASH chlorhexidine (CHLORHEXIDINE) Allergy (Intermediate, Verified 04/14/25 10:25) ITCHY,RASH ibuprofen (IBUPROFEN) Allergy (Intermediate, Verified 04/14/25 10:25) RASH- PER H&P latex (LATEX) Allergy (Intermediate, Verified 04/14/25 10:25) RASH Physical Exam Vital Signs: BMI result Body Mass Index 33.1 Assessment & Plan Assessment & Plan (1) Cervical radiculopathy: Code(s): M54.12 - Radiculopathy, cervical region Category: Medical Plan Dear Jose, Thank you for referring Mrs Rojas to our office today. She is a very nice 60-year-old female with history of osteoporosis, presents with 3 months or more of a cervical radiculopathy going down into her left arm. It starts in her neck and will radiate across the top of her trapezius, travel down to about the mid biceps level. It is gotten to the point now where it is very irritating and uncomfortable. She is constantly changing head position, having to scratch her arm to make the symptoms better. There is been some response with gabapentin at night. She is a very hard time sleeping. She takes a leave which really does not do anything. She has been involved with physical therapy now for 4 weeks without any significant improvement. When they are doing some of the cervical traction it seems to help a day or so afterwards but then it comes right back. She comes in today with a cervical MRI showing foraminal stenosis at C4-5 and C5-6 on the left. 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 She is currently relatively well-maintained on her medical regimen at this point, and is no longer on steroids. History of osteoarthritis, eczema, right hip replacement, left ankle surgery twice, pubovaginal sling, left knee arthroscopy, left wrist ganglion removal. She has a history of a lumbar compression fracture that was treated with a kyphoplasty. Denies any history of cardiovascular disease, strokes, liver or kidney disease, bleeding disorders, blood clots, major abdominal surgery, unusual infections. Social hx: She does not smoke, occasionally uses alcohol, no recreational drugs Medications: Breztri, Dupixent, singular, cetirizine, albuterol, omeprazole, levothyroxine, rosuvastatin, Flonase, cyclobenzaprine Allergies: Please see the [employer] list Physical exam: Awake alert oriented no acute distress, she has full strength of bilateral upper extremities with intact reflexes. Karina's sign in the left hand. Imaging review: Cervical MRI done at [facility] shows spondylolisthesis at C4-5, on the foraminal views I can see severe left foraminal stenosis at this level. At C5-6 there is also left foraminal narrowing. No spinal cord compression seen. There is also some degenerative disc disease at C6-7 but I do not appreciate any nerve compression at this level. Impression: 60-year-old female, history of asthma, osteoporosis secondary to long-term steroid use, she is no longer on steroids at this time, presents with what sounds like left cervical radiculopathy and neck pain. She has a spondylolisthesis at C4-5 with foraminal stenosis, and to a lesser degree C5-6 foraminal stenosis on the left. She has been engaged in physical therapy, medication trials but nothing seems to be working. The pain is very persistent and irritating. It keeps her from sleeping well. I think Dr. Herring would be willing to offer her an anterior cervical fusion at C4-5, possibly C5-6. We will need to get flexion-extension x-rays to see if we need to use a plate at C4-5. I have ordered those x-rays. I will review everything with Dr. Herring and get back to the patient with a final plan. We did briefly discuss the procedure anterior cervical fusion, risks, benefits, recovery quoting success rate for arm pain at 90% and neck pain at 70%. Thank you for allowing us to care for your patient. The total time spent with this visit with this patient was 45 minutes reviewing history, physical exam, cervical imaging review, and implementation of treatment plan or further diagnostic testing Lee Herring MD,PhD [facility] Orders: Orders XR cervical spine 4V Today M54.12 - Radiculopathy, cervical region Coding Level of Care Code New Pt Level 4 (94484) Diagnoses Cervical radiculopathy M54.12
[2025-04-14 10:25] VITALS: BMI 33.1
--- OUTSIDE RECORDS SUMMARY | 2025-04-14 12:42 | XMS_ITS | Encounter Summary ---
Author Organization [facility] Address [address] [place] [address] Phone Care Team Providers Care Family Dinner Service Specialist Name Role Phone Cy Huggins DO Primary Care Provider [phone]- [phone] Reason for Referral * Physical Therapy (Routine) - Closed Specialty Diagnoses / Procedures Referred By Contac t Referred To Contact Physical Therapy Diagnoses Encounter for rehabilitation System, Provider Not In, PhD [address] [address] Phone: tel: Referral ID Status Reason Start Date Expiration Date Visits Re quested Visits Authorized [id number] Closed 12/03/2017 06/29/2018 7 7 Encounter Details Date Type Department Care Team (Latest Contact Info) Description 11/18/2017 Transcribe Orders [facility] Rehabilitation Services [address] [place] [address] InstrumAly MD [address] [place] [address] [place] [address] Encounter for rehabilitation (Primary Dx) Social History [...] Diagnoses Orde r Schedule Ambulatory referral to [facility] Physical Therapy Outpatient Referral Routine Encounter for rehabilitation Ordered: 11/18/2017 documented as of this encounter Visit Diagnoses Diagnosis Encounter for rehabilitation- Primary documented in this encounter Care Teams Family Dinner Service Specialist Relationship Specialty Start Date End Date Cy Huggins DO [address] [place] [address] PCP - General Internal Medicine 11/18/17 documented as of this encounter Additional Source Comments The information contained in this document represents components of the legal health record. It is not the complete legal health record.[facility]
--- OUTSIDE RECORDS SUMMARY | 2025-04-14 12:42 | XMS_ITS | Patient Health Record ---
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 and limit standing/walking until further [...] primary osteoarthritis of the ankle and/or foot (944699406) Primary osteoarthritis, right ankle and foot (M19.071) Active confirmed Problem Mononeuropathy of lower limb (660233850) Neuritis of left foot (G57.92) Active confirmed Problem Localized, primary osteoarthritis of the ankle and/or foot (713268221) Osteoarthritis of right ankle and foot (M19.071) Active confirmed Problem Localized, primary osteoarthritis of the ankle and/or foot (722639788) Osteoarthritis of left ankle and foot (M19.072) Active confirmed Problem Pes cavus (67329384) Pes cavus (Q66.7) Active confirmed Plan Of Treatment Pending Test Test Name Order Date X ray : Foot, left 3V 04/22/2018 X ray : Foot, left 3V 05/08/2021 X ray : Foot, left 3V 12/04/2021 X ray : Foot, right 3V 12/04/2021 X ray : Foot, right 3V 03/10/2018 X ray : Foot, right 3V 05/08/2021 97644- Debride <25 sq cm 02/06/2018 35189 I&D ABSCESS- SIMPLE,SINGLE 018 Insurance Providers Payer Name Payer Address Payer Phone Subscriber Number Group Number Insured Name Patient Relationship to Insured Coverage Start Date Coverage End Date [facility] [address] [place] [address] [phone] [id number] Samina Rojas Self - patient is the insured Medical (General) History Medical History History ICD Code Back,Hip,and Knee pain Cholesterol Lung disease Eczema Reflux ( GERD) Thyroid disorder Chicken pox Joint implants/screws Surgical History Surgery Date(Month/Year) right hip replacement 04/2017 left foot surgery vaginal sling
--- OUTSIDE RECORDS SUMMARY | 2025-04-14 12:42 | XMS_ITS | Clinical Summary ---
Author Organization [facility] Address [address] [place] [address] Phone Care Team Providers Care Distillation Operator Name Role Phone Cy Huggins Primary Care Provider +1- [phone] Allergies Active Allergy Reactions Criticality Noted Date [...] of :1902 Address: [address] [place] [address] Payer ID:Not on file Type:Indemnity Address: [employer] [address] [place] [phone] GENERIC COMMERCIAL GENERIC COMMERCIAL GENERIC COMMERCIAL GENERIC COMMERCIAL GENERIC COMMERCIAL Member Subscriber Plan / Payer (Ef fective 2017-Present) Name:Samina Rojas Relation to Subscriber:Spouse Name:MANUELITO ROJAS Date of :1900 Address: [address] [place] [address] Payer ID:Not on file Type:Indemnity [facility] [employer] [facility] [address] [place] [phone] GENERIC COMMERCIAL Member Subscriber Plan / Payer (Ef fective 2017-Present) Name:Samina Rojas Relation to Subscriber:Spouse Name:MANUELITO ROJAS Date of :1902 Address: [address] [place] [address] Payer ID:Not on file Type:Indemnity Address: [employer] [address] [place] [phone] GENERIC COMMERCIAL Member Subscriber Plan / Payer (Ef fective 2017-Present) Name:Samina Rojas Relation to Subscriber:Spouse Name:MANUELITO ROJAS Date of :1902 Address: [address] [place] [address] Payer ID:Not on file Type:Indemnity Address: [employer] [address] [place] [phone] Care Teams Distillation Operator Relationship Specialty Start Date End Date Cy Huggins DO [address] [place] [address] PCP - General Internal Medicine 11/18/17 Additional Source Comments The information contained in this document represents components of the legal health record. It is not the complete legal health record.[facility]
== END 2025-04-14 11:40 | disposition home or self-care (01) ==
LOC: HO.HNS 10:19
PROVIDERS: PCP Physician Assistant; Referring Provider Physician Assistant; Visit Provider Physician Assistant
DX: M54.12 Radiculopathy, cervical region (principal)
CPT/HCPCS: 99204

== ENCOUNTER → 2025-04-14 11:20 | Outpatient (BNV) | payer BC, SELFPAY | PROVIDERS: PCP Physician Assistant; Referring Provider Physician Assistant; Visit Provider Specialist | DX: M54.12 Radiculopathy, cervical region (principal) | CPT/HCPCS: 72050 ==

== ENCOUNTER 2025-05-11 12:00 | Outpatient (RCR) | payer BC, SELFPAY ==
--- NOTE | 2025-03-17 13:56 | MHC.PT.EP ---
[facility] [place] Office [place] Office [place] Office [address] Tammy Lester [address] [phone] F: [phone] F: [phone] F: [phone] F: [phone] Physical Therapy Plan of Care Date of Evaluation: 03/17/25 Date of Surgery: N/A Diagnosis: cervical myelopathy (RL) Assessment: pt is a 60 y/o female presenting to physical therapy w/ referring diagnosis of cervical myelopathy. Impairments include pain, decreased range of motion, decreased strength, impaired functional mobility, impaired postural awareness, and altered ambulation mechanics. pt is a good candidate for skilled PT due to age, potential remediation of impairments, typical disease/condition progression and prognosis, comorbidities, and motivation. pt would benefit from skilled PT intervention to provide a tailored strengthening and stretching exercise program, functional training, gait training, postural re-training, neuromuscular re-education, modalities as needed for pain, equipment safety demonstration. Frequency and Duration: The patient will be seen 2x/wk for 6 wks Short Term Goals: pt will be I w/ HEP to promote self-management of condition. pt will demo proper sitting posture w/ lumbar roll to promote neutral spine w/ seated ADLs. pt will demo proper sleeping posture w/ towel roll to promote neutral spine w/ sleeping. Usp Goals: pt will improve B cervical rotation by at least 10* to promote ease in head turns w/ driving. pt will improve B shoulder flexion and abduction strength by at least 1 MMT grade to promote ease in upper body ADLs. Treatment Plan: Modalities to reduce pain, spasms and effusion. Manual therapy to restore motion and function. Therapeutic exercise to improve strength and flexibility. Neuromuscular re-education for posture and balance. Therapeutic activities to return to functional activities of daily living. Electronically signed by: Vanesa Cvoington PT, DPT Please sign and return to therapist. Thank you for your referral.
--- NOTE | 2025-05-11 13:51 | MHC.PT.DC ---
[facility] [place] Office [place] Office [place] Office [address] Tammy Lester [address] [facility] [phone] F: [phone] F: [phone] F: [phone] F: [phone] Physical Therapy Discharge Report Diagnosis: cervical myelopathy (RL) Date of Surgery: N/A Date of Evaluation: 03/17/25 Date of Discharge: 05/11/25 Treatments to Date: 12 Cancellations to Date: 2 No Shows to Date: 0 Discharge Status: Improved Function Independent with HEP Recommend MD Follow-up Discharge Summary: The patient overall has reported fair improvement in her neck pain. She has not been reporting any radicular symptoms. The patient is independent with her home exercise program. She is discharged from this physical therapy plan of care with the recommendation to follow-up with the neurosurgeon as well as a second opinion. Electronically signed by: Vanesa Covington PT, DPT Please sign and return to therapist. Thank you for your referral.
== END 2025-05-11 13:52 | disposition home or self-care (01) ==
LOC: HO.PT 12:00
PROVIDERS: PCP Physician Assistant; Visit Provider Physician Assistant
DX: G95.9 Disease of spinal cord, unspecified (principal)
CPT/HCPCS: 97110; 97112; 97140; 97162

== ENCOUNTER 2025-06-06 09:12 | Outpatient (AMB) | payer BC, SELFPAY ==
--- NOTE | 2025-06-06 09:32 | MHC.OFFVIS ---
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 Allergies cephalexin (From KEFLEX) Allergy (Intermediate, Verified 06/06/25 13:06) RASH chlorhexidine (CHLORHEXIDINE) Allergy (Intermediate, Verified 06/06/25 13:06) ITCHY,RASH ibuprofen (IBUPROFEN) Allergy (Intermediate, Verified 06/06/25 13:06) RASH- PER H&P latex (LATEX) Allergy (Intermediate, Verified 06/06/25 13:06) RASH Medication List - Last Reconciled 06/06/25 by Yari Cisneros LPN albuterol sulfate 90 mcg/actuation 2 inhalations PO Q4H PRN budesonide 0.5 mg (2 mL) inhalation BID 30 days oeyszljiyy-rjuwphbf-qsfdmzuewl 160-9-4.8 mcg/actuation (Breztri Aerosphere) 2 inhalations inhalation BID 30 days cetirizine (All Day Allergy (cetirizine)) 10 mg PO DAILY PRN Dupixent Pen (dupilumab) 300 mg (2 mL) subcut Q2W NS epinephrine (EpiPen 2-Kali) 0.3 mg (0.3 mL) IM Q10M PRN 30 days fluticasone propionate 50 mcg/actuation 1 spray intranasal DAILY 30 days gabapentin 300 mg PO DAILY 30 days leg brace (Ankle Brace) [facility], [address] [place] [address] PLEASE SCHEDULE WITH COURTNEY SALGUERO (I've already spoken to Courtney about this case) for left AFO all style or renata style for right orthotic or shoe insert levalbuterol HCl 1.25 mg (3 mL) inhalation Q6H PRN levothyroxine 88 mcg PO DAILY 90 days montelukast 10 mg PO DAILY 90 days nebulizers As directed omeprazole 20 mg PO DAILY 3 months roflumilast (Daliresp) 500 mcg PO DAILY 90 days rosuvastatin 5 mg PO DAILY 90 days HPI HPI CERVICAL MYELOPATHY: Details: History of Present Illness The patient is a 61-year-old female presenting for management of neck pain and cervical radiculopathy. She is here to discuss her options should her pain become as severe as it was previously. The patient reports a history of severe, intense burning pain down her left arm that would keep her up at night. Her pain is currently tolerable since starting a home exercise program from physical therapy. She completed 12 hours of physical therapy in May 2025 and is compliant with her home exercises. She is taking gabapentin, which has helped her sleep through the night. The patient is nervous about the possibility of cervical fusion surgery and is planning to get a second opinion from another neurosurgeon. She inquired about cervical disc replacement as a surgical alternative. Pain Description - Onset and character: The patient reports her pain has been present for at least a year and describes it as an intense burning sensation. - Location and radiation: The pain originates in her neck and radiates down the left arm. - Severity: The pain was previously severe, keeping her up at night, and is now tolerable. - Exacerbating factors: Triggers include sleeping in the wrong position or taking a long flight. - Relieving factors: The patient finds relief with ice packs, gabapentin, and her home exercise program including bands, chin tucks, and stretches. - Impact on function: Previously, the pain significantly impacted her sleep. Physical Exam - Appears afebrile. - Alert and oriented. - Mood and affect appropriate. - Follows and participates in conversation appropriately. - Respiratory effort is unlabored. Results - Cervical Spine MRI: Findings discussed include a loss of the normal C-shaped curvature. - A slight T1 cord signal change is present, which is the basis for the term myelopathy, though a T2 sequence does not show a significant signal change. - There is free fluid noted around the spinal cord at its tightest junction, which is a reassuring sign indicating there is still room. Pain Management - Analgesia: The patient is taking gabapentin, which helps her sleep through the night. - Current pain level is described as tolerable. - Activities of Daily Living: Previous severe pain interfered with sleep. - She reports feeling better since starting her home physical therapy exercises. - Affect: The patient expressed nervousness about the prospect of cervical fusion surgery. - Previously, the severe arm pain was distressing to the point where she felt she wanted to gouge my arm up. - Adverse Effects: No adverse effects from medications were discussed. - Aberrant Drug-Related Behaviors: No aberrant drug-related behaviors were discussed. [facility] Medical History (Updated 05/17/25 @ 08:23 by Jose Oliveira PA-C) Polyarticular osteoarthritis Sinusitis COVID-19 Asthma-COPD overlap syndrome Tachycardia Bronchitis Dyspnea Lower extremity edema Diastolic dysfunction [id number] syndrome PONV (postoperative nausea and vomiting) Asthma GERD (gastroesophageal reflux disease) Elevated cholesterol Thyroid disease Eczema Surgical History History of surgical removal of ganglion cyst H/O colonoscopy Hx of total hip arthroplasty History of ankle surgery Family History Father CVD (cardiovascular disease) Asthma Mother Breast cancer History of corneal transplant HTN (hypertension) Hypercholesterolemia Brother No problems noted. Brother No problems noted. Brother No problems noted. Sister No problems noted. Sister No problems noted. Sister No problems noted. Son No problems noted. Son No problems noted. Son No problems noted. Daughter No problems noted. Social History Household Members: Family Household Members Other:: spouse/son Housing: House Alcohol intake: current Alcohol intake frequency: a few times a month Alcohol type: wine Patient Tobacco Use Status: Never used Tobacco e-Cigarette/Vaping Use: Never Used Second Hand Smoke Exposure: No service: No Current occupational status: employed Current occupational exposures/hazards: No Cognitive needs: No Hearing needs: No Vision needs: No Physical Exam Vital Signs: Last Vital Signs Pulse 70 06/06/25 09:33 Resp 16 06/06/25 09:33 BP 175/84 H 06/06/25 09:33 Pulse Ox 97 06/06/25 09:33 Oxygen Delivery Method Room Air 06/06/25 09:33 BMI result Body Mass Index 33.1 Assessment & Plan Assessment & Plan (1) Cervical spine disease: Code(s): M48.9 - Spondylopathy, unspecified Category: Medical (2) Cervical radiculopathy: Code(s): M54.12 - Radiculopathy, cervical region Category: Medical Plan Plan Patient was informed and verbally consented to the use of an ambient scribe for clinic note documentation during this visit. 1. Cervical Radiculopathy - The patient's symptoms are currently stable and pain is tolerable with a home exercise program and gabapentin. - A review of her MRI reveals that while there is cervical pathology, questionable early myelopathy, there does not appear to be immediate need for surgery as indicated by preserved fluid around the spinal cord. - It was explained that disc replacement is likely not an appropriate option due to the diffuse nature of her cervical spine changes and loss of normal curvature. - The patient will continue with her home exercise program, including chin tucks and stretches. - For future pain flares, non-surgical options were discussed, including cortisone injections, facet interventions, and radiofrequency ablations. - Establishing care now will allow for expedited treatment, such as an epidural steroid injection, if a severe flare occurs. - Consider follow-up MRI in two to three years to monitor for progression. - The patient will proceed with seeking a second opinion from a neurosurgeon regarding surgical options. Discussion Notes I had a detailed discussion with the patient regarding her neck pain and cervical radiculopathy. I reviewed her cervical spine MRI, explaining the findings of lost curvature and a mild cord signal change indicative of myelopathy, while also reassuring her that the presence of fluid around the cord suggests surgery is not immediately necessary. We discussed treatment options. I explained that surgery, like a fusion, is primarily to prevent neurologic progression rather than for pain relief. I advised that a disc replacement would be unlikely to provide the desired benefit due to the global changes in her neck's anatomy, not just isolated disc issues. I affirmed that her current regimen of physical therapy exercises is beneficial and should be continued. For future pain flares, I outlined non-surgical options such as cortisone shots and facet interventions. I explained that by establishing care today, she can access these treatments more quickly if needed. I recommended a follow-up MRI in 2-3 years to monitor her condition and supported her decision to seek a second surgical opinion. The patient verbalized understanding of the plan. Patient Instructions - Continue with your home exercise program, including chin tucks, stretches, and using bands, as this is helping your pain. - Continue taking gabapentin as prescribed, as it is helping you sleep without being disturbed by pain. - If you have a severe flare-up of pain in your neck or arm, please call our office. We can then arrange for other treatments like cortisone injections to help manage it. - Plan to get another MRI of your neck in about 2-3 years to check on your condition. - It is a good idea to continue with your plan to get a second opinion from another neurosurgeon to discuss surgical possibilities. Coding Level of Care Code New Pt Level 4 (87566) Diagnoses Cervical spine disease M48.9 Cervical radiculopathy M54.12
[2025-06-06 09:33] VITALS: BP 175/84; PULSE 70; RESP 16; O2SAT 97; BMI 33.1
== END 2025-06-06 10:42 | disposition home or self-care (01) ==
LOC: HO.PMC 09:13
PROVIDERS: PCP Physician Assistant; Visit Provider Internal Medicine
DX: M48.9 Spondylopathy, unspecified (principal); M54.12 Radiculopathy, cervical region
CPT/HCPCS: 99214

== ENCOUNTER 2025-06-06 12:56 | Outpatient (AMB) | payer BC, SELFPAY ==
[2025-06-06 13:03] VITALS: BP 138/62; PULSE 90; O2SAT 94
--- NOTE | 2025-06-06 13:03 | A.OFFVIS_ITS ---
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 Her course was complicated with bilateral pneumonia. She stayed home she did not want to be hospitalized. Ever since then her respiratory symptoms have not been the same. She has been noticing increasing shortness of breath even with minimal activity moderate severity. She could not return to work for several months after developing COVID due to her significant shortness of breath. In addition to that she has noted increasing heart rate with any activity. She did undergo an echocardiogram which was normal. The patient had allergy testing done with significant allergies and elevated IgE. The patient has not use any biologic therapy. At this point will try to maximize respiratory therapy in then reassess the need for biologic therapy. Also, recently she started developing some chest tightness and pressure. She went to her primary care who requested a chest x-ray. The x-ray demonstrated no acute disease. However her symptoms got worse she went to the ED which she has additional evaluation and blood work. Her D-dimer was below 200 which is reassuring. She was given a presumptive diagnosis of pleurisy. Currently chest discomfort has improved she currently does not have any discomfort at this time. 04/24/2023 the patient is here for pulmonary follow-up visit. Since we last spoke she is been participating in pulmonary rehabilitation. This has been helpful and beneficial. Although she is been getting some knee pains and she will be seeing orthopedics Soon. The patient continues on her current respiratory therapy with good effect. She continues with biologic therapy, Dupixent without any adverse effects. Denies any eczema. Recently she did get allergy shots and she did have significant reaction. Therefore she will follow- up with her vending machine host/hostess closely. She was given a dose of Kenalog because of the significant adverse reaction to the allergy shots. Respiratory gr the patient is stable on current regimen. The appears that the tachycardia has been improving which is reassuring. Likely sequelae from her COVID-19 infection. 10/23/2023 the patient is here for a pulmonary follow-up the patient has been doing fairly well from a respiratory status. Continues on the Breztri inhaler. Appears to be affecting beneficial. She rarely has to use her rescue inhaler. Does not 2 times week. She has been having issues with allergies. Having significant conjunctivitis issues and allergic reactions to her allergy shots. The Dupixent injection appears to be very affecting beneficial for her. She has not required significant amount of steroids. Is really calm down her atopic dermatitis and her asthma. She is going to try to cut down on the inhaler some. No recent imaging studies to review. She is still participating in pulmonary rehabilitation. This has been affecting beneficial. Will continue with the current respiratory regimen although she will cut down any inhalers. She will follow-up in 6 months or sooner if any issues arise. 02/05/2024 the patient is here for a pulmonary follow-up visit. The patient has been having hard time with her breathing. Apparently she had a bee sting had a significant allergic reaction. Then after that she had a the inability to start her allergy shots. She has been with the allergy shots for now more than 2 weeks. She went to see her vending machine host/hostess who felt that she was not moving a lot of air she had a chest x-ray done. It was done at [facility] and was no acute disease per report. The patient is still on 60 mg of prednisone. She does have 60 mg sometime next week. Feels like there is some pressure in the chest. She still has some wheezing on examination. She feels like she has a cough difficult to expectorate phlegm. Does not feel like she is having any infection. She does have a flutter valve and she is trying to the nebulizer about 3 times a day. Although she still does not feel great. The Dupixent injections have been very helpful for her. We did talk about different therapies including Tezspire but I do not believe is a good option for her right now specially with a history of eczema. We did talk about alternative therapies to prednisone including theophylline. She did take it in the past. The patient had some headaches with a. I did explain to her the theophylline could be given a lower dose and can help facilitate decrease prednisone use. In addition to the Daliresp will be a good option for her. She does have chronic bronchitis based on her symptoms. She is requiring a lot of prednisone. A PD4 inhibitor will help decrease her prednisone needs and hopefully help him with his chest congestion. She can not started low-dose and then workup to the therapeutic dose of having mcg. 07/09/2024 the patient is here for a pulmonary follow-up visit. Overall she is doing well. She is tolerating the Daliresp 500 mcg dose very well. She is also using all her respiratory medications with good effect. Her major complaint is nasal congestion. But right now she does not want to take additional medications for. She does have 2 dogs at home that are visiting and she feels that that is the reason for her symptoms. She did get a noticed that her Dupixent may not be covered fully this year. She is contemplating her options. I did give information about Tezspire as this is an option for her. Although I do believe that Dupixent as a better option for her. The patient has been tolerating her respiratory medicines. Overall she is doing well she is exercising regularly. Send this time will continue with current regimen. The patient follow-up in 6 months. If she has any issues prior to that she will call for an earlier assessment. 12/07/2024 the patient is here for pulmonary follow-up visit. Overall she is doing well. She continues on respiratory therapy as prescribed. She does have increased dyspnea on exertion. [id number]-wb-[id number] severity. Most likely related to the weather changes. She can try using the albuterol prior to exercise however usually can she complains of tachycardia from it. She continues on Dupixent seems to be working very well for her. She also sees the vending machine host/hostess. No recent imaging studies to review. The patient otherwise doing well will follow-up in a 6 months. If she has any worsening dyspnea symptoms she will call for further evaluation. 06/06/2025 the patient is here for pulmonary follow-up visit. Overall the patient is doing okay. She did come back from [facility]. She does have a cough chest congestion and some wheezing. She is going to take tduq-phj-crkcipo Mucinex right now. She continues her respiratory medications with good effect. If her symptoms worsen she is going to start a course of doxy and also a Medrol Kali. The patient has been using Dupixent. That has been affecting beneficial also tolerated her Daliresp. She will continue the current respiratory regimen as prescribed. She is having issues with her neck. She has significant cervical disease and require surgery. She did follow-up with spine surgeon and now she is going to continue to be evaluated for that. Otherwise the patient is without any other complaints. If she has any worsening symptoms she will call for further recommendations. [facility] Medical History (Updated 05/17/25 @ 08:23 by Jose Oliveira PA-C) Polyarticular osteoarthritis Sinusitis COVID-19 Asthma-COPD overlap syndrome Tachycardia Bronchitis Dyspnea Lower extremity edema Diastolic dysfunction [id number] syndrome PONV (postoperative nausea and vomiting) Asthma GERD (gastroesophageal reflux disease) Elevated cholesterol Thyroid disease Eczema Surgical History History of surgical removal of ganglion cyst H/O colonoscopy Hx of total hip arthroplasty History of ankle surgery Family History Father CVD (cardiovascular disease) Asthma Mother Breast cancer History of corneal transplant HTN (hypertension) Hypercholesterolemia Brother No problems noted. Brother No problems noted. Brother No problems noted. Sister No problems noted. Sister No problems noted. Sister No problems noted. Son No problems noted. Son No problems noted. Son No problems noted. Daughter No problems noted. Social History Household Members: Family Household Members Other:: spouse/son Housing: House Alcohol intake: current Alcohol intake frequency: a few times a month Alcohol type: wine Patient Tobacco Use Status: Never used Tobacco e-Cigarette/Vaping Use: Never Used Second Hand Smoke Exposure: No service: No Current occupational status: employed Current occupational exposures/hazards: No Cognitive needs: No Hearing needs: No Vision needs: No Review of Systems Const Denies chills, Reports fatigue and Denies night sweats Eyes Denies diplopia, Reports irritation, Reports itchy eyes, Denies loss of peripheral vision, Denies loss of vision, Denies eye pain, Denies seeing flashes, Denies photophobia and Denies tunnel vision ENT Denies change in voice, Denies lip swelling, Denies mouth pain, Reports nasal congestion, Reports nasal discharge and Denies tongue swelling Card Reports chest pain, Reports leg edema, Denies palpitations and Reports dyspnea on exertion Resp Denies change in phlegm color, Reports chest congestion, Reports cough, Denies pain on inspiration, Reports dyspnea on exertion and Reports wheezing GI Denies abdominal pain Musc Denies no additional complaints Skin/Breast Reports rash Neuro Denies Neuro-related abnormal movements and Denies loss of vision Psych Denies no additional complaints Endo Reports fatigue and Denies palpitations Ovidio/Lymph Denies easy bleeding and Denies lymphadenopathy Aller/Immun Reports itchy eyes, Denies lip swelling, Denies tongue swelling and Reports wheezing Physical Exam Vital Signs: Last Vital Signs Pulse 90 06/06/25 13:03 BP 138/62 06/06/25 13:03 Pulse Ox 94 06/06/25 13:03 Oxygen Delivery Method Room Air 06/06/25 13:03 Const General: alert and awake Orientation/consciousness: patient oriented x3 HEENT Head: Yes normocephalic and Yes atraumatic Eyes EOM: EOMs intact bilaterally Direct Ophthalmoscopy: No photophobia Neck Neck: Yes normal visual inspection, Yes full ROM and Yes no lymphadenopathy Chest Chest palpation & inspection: normal inspection of the chest Resp Effort & Inspection: normal respiratory effort and prolonged expiratory phase Auscultation: wheezes and diminished lung sounds Cardio Rate: tachycardic Rhythm: regular rhythm Heart sounds: S1 normal heart sound present and S2 normal heart sound present GI Palpation (GI): Soft to palpation and nontender Auscultation: normal bowel sounds Skin General skin exam: turgor normal Rashes: no rashes Neuro General: patient oriented x3 Extrem General: Yes edema Psych Appearance: grossly normal Affect: normal affect Attitude: cooperative Assessment & Plan Assessment & Plan (1) Severe persistent allergic asthma: Code(s): J45.50 - Severe persistent asthma, uncomplicated Category: Medical (2) Allergic rhinitis: Code(s): J30.9 - Allergic rhinitis, unspecified Category: Medical Qualifiers: Allergic rhinitis seasonality: non-seasonal Allergic rhinitis trigger: fungal spores Qualified Code(s): J30.89 - Other allergic rhinitis (3) Eczema: Code(s): L30.9 - Dermatitis, unspecified Category: Medical Qualifiers: Eczema type: flexural Qualified Code(s): L20.82 - Flexural eczema (4) Dyspnea: Code(s): R06.00 - Dyspnea, unspecified Category: Medical Qualifiers: Dyspnea type: dyspnea on exertion Qualified Code(s): R06.09 - Other forms of dyspnea (5) Lower extremity edema: Code(s): R60.0 - Localized edema Category: Medical (6) Asthma-COPD overlap syndrome: Code(s): J44.89 - Other specified chronic obstructive pulmonary disease Category: Medical Plan continue Breztri 2 puffs twice a day, decrease to 1puff BID continue Dupixent every 2 weeks continue nasal therapy along with nasal rinsing short-acting beta agonist as needed continue singular at nighttime Daliresp 500mcg start Doxycycline if no better start Medrol if no better increase Gabapentin 600mg QHS F/U with allergy F/U 6 months Medications: New doxycycline monohydrate 100 mg PO BID 28 tabs 0RF 14 days prednisone PO daily; Take 2 tabs daily x 5 days, then 1 tablet daily x 5 days 15 tabs 0RF 10 days Changed From gabapentin 300 mg PO DAILY 30 days 30 caps 2RF G95.9 - Disease of spinal cord, unspecified To gabapentin 600 mg (2 x 300 mg) PO .QHS 180 caps 3RF 90 days G95.9 - Disease of spinal cord, unspecified Coding Level of Care Code Complex visit Add On G2211 Diagnoses Severe persistent allergic asthma J45.50 Non-seasonal allergic rhinitis due to fungal spores J30.89 Allergic rhinitis seasonality: non-seasonal Allergic rhinitis trigger: fungal spores Flexural eczema L20.82 Eczema type: flexural Dyspnea on exertion R06.09 Dyspnea type: dyspnea on exertion Lower extremity edema R60.0 Asthma-COPD overlap syndrome J44.89 Time Spent (min) 17
== END 2025-06-06 13:34 | disposition home or self-care (01) ==
PROVIDERS: PCP Physician Assistant; Visit Provider Hospitalist
DX: J45.50 Severe persistent asthma, uncomplicated (principal); J30.89 Other allergic rhinitis; L20.82 Flexural eczema; R06.09 Other forms of dyspnea; R60.0 Localized edema; J44.89 Other specified chronic obstructive pulmonary disease
CPT/HCPCS: 99214